=== PATIENT | male | born 1960 | race Caucasian/White ===

== ENCOUNTER 2022-06-26 08:16 | Emergency (ER) | payer OTHER ==
--- OUTSIDE RECORDS SUMMARY | 2022-06-26 08:19 | XMS REPORT | Clinical Summary ---
:1960 Author Organization [facility] MD [facility] Address [address] [place] [address] Care Team Providers Name Role Phone Nicole Mcfarland MD Primary Care Provider Daniela Dan DO Unavailable Allergies Active Allergy Reactions Severity Noted Date Comments Penicillins Itching, Rash Low 07/05/2019 Medications Medication Sig Dispensed Refills Start Date End Date Status lisinopril Take 1 tablet by 1 05/07/2019 A ctive (PRINIVIL,ZESTRIL) mouth daily. 2.5 mg tablet clobetasol (TEMOVATE) Apply topically to 45 g 1 9 Active 0.05% affected area(s) creamIndications: twice daily. to Vesicular eczema of hands, avoid face, hands and/or feet armpit, groin Active Problems Not on file Surgical History Surgery Date Site/Laterality Comments APPENDECTOMY 10/24/1987 - 10/23/1988 COLONOSCOPY 10/24/2018 - 10/23/2019 HERNIA REPAIR 10/24/2012 - 10/23/2013 SHOULDER SURGERY 10/24/2016 - 10/23/2017 Medical History Medical History Date Comments Hypertension 2017 2.5 mg Lisinopril Polyp of colon 2008 Diabetes mellitus 2017 diet controlled, no medication Family History Medical History Relation Name Comments -Other cancer Brother Pradeep Throat -Colon cancer Father Ramon -Thoracic or Lung Father Ramon -Uterine cancer Mother Shanell -Breast cancer Sister Destiny Relation Name Status Comments Brother Pradeep Father Ramon Mother Shanell Sister Destiny Social History Tobacco Use Types Packs/Day Years Used Date Never Smoker 0 0 Smokeless Tobacco: Never Used Alcohol Use Standard Drinks/Week Comments Never 0 (1 standard drink = 0.6 oz pure alcoho l) Sex Assigned at Date Recorded Not on file Obstetrics History Last Filed Vital Signs Not on file Plan of Treatment Health Maintenance Due Date Last Done Comments COVID-19 Vaccination (#1) 1960 Results Not on fileafter 06/26/2021 Insurance Payer Benefit Plan / Subscriber ID Effective Dates Phone Addre ss Type Group [employer] MANAGED AET[employer] O [id number] 2000-Present [id number] [facility] [place] [address] Care Teams Differential Repairer Relationship Specialty Start Date End Date Nicole Mcfarland MD PCP - General Dermatology 05/24/19 [address] [place] [address] Daniela Dan, DO PCP - External Follow Up [facility] 07/05/19 [address] [place] [address] [phone]
--- OUTSIDE RECORDS SUMMARY | 2022-06-26 08:28 | XMS REPORT | Continuity of Care Document ---
:1960 Author Organization [facility] t Address [address] [place] [address] Care Team Providers Name Role Phone JENNIFER BATISTA Primary Care Physician Unavailable Jennifer Batista Attending Clinician Unavailable MARTHA ADLER Attending Clinician Unavailable RUDI PADILLA Attending Clinician Unavailable Rudi Padilla MD Attending Clinician [address] [place] [address] Tip Mr Attending Clinician Unavailable SWATHI MENDES Attending Clinician Unavailable Swathi Mendes Attending Clinician NAV EDWARD Attending Clinician Unavailable REGINE LEMUS Admitting Clinician Unavailable Regine Lemus Admitting Clinician NAV EDWARD Admitting Clinician Unavailable Payers Payer Name Policy Type Policy Number Effective Date Expiration Date S ourronald OPEN ACCESS [id number] 2022 00:00:00 HMO/POS/EPO/PPO - AETNA AETNA HMO POS [id number] 2021 00:00:00 QPOS Problems Condition Condition Condition Status Onset Resolution Last Treating Co mments Source Name Details Category Date Date Treatment Clinician Date STROKE STROKE Diagnosis Active 2020-03-21 Me moria Active 03-21 15:32:00 l 03/21/2020 00:00: Esa cook [address] ACUTE ACUTE Diagnosis Active 2020-03-31 Mem oria RENAL RENAL 03-21 21:54:00 l FAILURE FAILURE 00:00: Roberto Carlos DUE TO DUE TO 00 RHABDOMYOL RHABDOMYOL YSI YSI Active 03/21/2020 [facility] MARY KAY MARY KAY Diagnosis Active 2020-03-24 Memoria BILLING BILLING 03-21 15:01:00 l Active 00:00: [place] 03/21/2020 00 [facility] ACUTE ACUTE Diagnosis Active 2020-03-31 Mem oria KIDNEY KIDNEY 21:54:00 l FAILURE, FAILURE, Esa n UNSPECIFIE UNSPECIFIE D D Active [facility] Allergies, Adverse Reactions, Alerts Allergy Allergy Status Severity Reaction(s) Onset Inactive Treating Comm ents Source Name Type Date Date Clinician Penicill Propensi Active [facility] ins ty to 802 [employer] adverse 00:00: of reaction 00 Medicin s to e drug PENICILL Allergy Active High [facility]aphylaxis [facility] [place] Penicill Propensi Active [facility]iver s ins ty to 912 ity of adverse 00:00: [place] reaction 00 MD dirk cook [facility] Penicill Drug Active Anaphylaxis, [facility] Allergy It[facility] Other (See 00:00: Medica l Comments), 00 Center Rash Amoxicil Adverse Active Info Not Commo n misty Reaction Available Spiri t - [facility] penicill penicill Active [facility] a ins ins l Roberto Carlos Family History Family Member Diagnosis Comments Start Date Stop Date Source Natural father -Thoracic or Lung [facility] Natural father -Colon cancer [facility] Natural mother -Uterine cancer [facility] Natural sister -Breast cancer [facility] Natural brother -Other cancer [facility] Social History Social Habit Start Date Stop Date Quantity Comments Source Exposure to 2022-05-21 2022-05-31 Not sure [facility] Napoleon leon of SARS-CoV-2 00:00:00 09:48:00 Medicine (event) Tobacco use and 2019-07-05 2019-07-05 Smokeless tobacco Un iversity of exposure 00:00:00 00:00:00 non-user [facility] Alcohol intake 2019-07-05 2019-07-05 [facility] 00:00:00 00:00:00 non-drinker [facility] Sex Assigned At [birth year] [facility]00 00:00:00 [facility] Smoking Status Start Date Stop Date Source Never smoked tobacco [facility]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 Clinician (SIG) Name Name gentamicin 2021- No [id number] 160mg [facility] (GARAMYCIN) 06-07 College 40 mg/mL 19:45: 20:16 of injection 00 :00 Medicin 160 mg e gentamicin 2021- No [id number] 160mg 160 mg, [facility] (GARAMYCIN) 06-07 [facility] 40 mg/mL 19:45: 20:16 lar, ONCE, of injection 00 :00 1 dose, On Medi chester 160 mg Mon e 06/07/22 at 1445 ciprofloxac Yes TAKE 1 [facility] or in (CIPRO) 05-27 TABLET BY Art farrar 500 MG 00:00: MOUTH of tablet 00 TWICE A Medicin DAY FOR 5 e DAYS. START 1 DAY PRIOR TO BIOPSY IN [place] losartan Yes TAKE 1 Rolando (COZAAR) 25 05-24 TABLET Colleg e MG tablet 00:00: HOLD IF of 00 FOR BLOOD Medicin PRESSURE e LESS 120 ORALLY TWICE A DAY 90 DAYS Amlodipine Amlodipine Yes Na Batista 1 tablet Common Besylate Besylate 7-16 Spirit 00:00: - [facility] Furosemide No 80 mg, 2 Mem oria 40 MG Oral 6-11 tab, l Tablet 14:00: Route: PO, Crissy nn [Lasix] 00 Drug form: TAB, Q--- , Dosing Weight 135.6, kg, Start date: 04/03/20 9:00:00 CDT, Duration: 30 day, Stop date: 05/01/20 9:00:00 CDT, 0 Furosemide 2020-0 No 80 mg, 2 Mem oria 40 MG Oral 6-11 tab, l Tablet 14:00: Route: PO, Crissy nn [Lasix] 00 Drug form: TAB, , Dosing Weight 135.6, kg, Start date: 04/03/20 9:00:00 CDT, Duration: 30 day, Stop date: 05/01/20 9:00:00 CDT, 0 amLODIPine 2020-0 Yes 5 mg = 1 Mem oria 5 mg oral 6-10 tab, PO, l tablet 16:03: Daily, 0 Roberto Carlos 00 Refill(s) bisacodyl 2020-0 Yes 10 mg = 1 Mem oria 10 mg 6-10 supp, AL, l rectal 16:03: Daily, PRN Crissy nn suppository 00 Constipati on, 0 Refill(s) Docusate 2020-0 Yes 1 tab, PO, Mem oria Sodium 50 6-10 Daily, 0 l MG / 16:03: Refill(s) Roberto Carlos sennosides, 00 HALFWAY 8.6 MG Oral Tablet Furosemide 2020-0 Yes 80 mg = 2 Me moria 40 MG Oral 6-10 tab, PO, l Tablet 16:03: Crissy nn [Lasix] 00 , 0 Refill(s) heparin 2020-0 Yes 7,500 unit Eder beau 6-10 = 1.5 mL, l 16:03: SUB-Q, Roberto Carlso 00 Q8H, 0 Refill(s) Regular 2020-0 Yes 1 unit, Memoria Insulin, 6-10 SUB-Q, l Human 100 16:03: Sliding Crissy nn UNT/ML 00 Scale, PRN Injectable Blood Solution Glucose Results, 0 Refill(s) Nystatin 2020-0 Yes 1 appl, Memori a 100 UNT/MG 6-10 TOP, PRN, l Topical 16:03: PRN For [place] Powder 00 Fungal Prophylaxi s, 0 Refill(s) ocular 2020-0 Yes Each Memoria lubricant 6-10 Affected l 16:03: Eye, QID, Roberto Carlos 00 PRN Dry Eyes, 0 Refill(s) Acetaminoph 2020-0 Yes 100.4 F, M emoria en 325 MG 6-10 0 l Oral Tablet 16:03: Refill(s) H erm Acetaminoph 2020-0 Yes 100.4 F, M emoria en 325 MG 6-10 0 l Oral Tablet 16:03: Refill(s) H erm amLODIPine 2020-0 Yes 5 mg = 1 Mem oria 5 mg oral 6-10 tab, PO, l tablet 16:03: Daily, 0 Roberto Carlos 00 Refill(s) bisacodyl 2020-0 Yes 10 mg = 1 Mem oria 10 mg 6-10 supp, AL, l rectal 16:03: Daily, PRN Crissy nn suppository 00 Constipati on, 0 Refill(s) Docusate 2020-0 Yes 1 tab, PO, Mem oria Sodium 50 6-10 Daily, 0 l MG / 16:03: Refill(s) [place] sennosides, 00 HALFWAY 8.6 MG Oral Tablet Furosemide 2019-0 Yes 80 mg = 2 Me moria 40 MG Oral 6-10 tab, PO, l Tablet 16:03: Q- Crissy nn [Lasix] 00 , 0 Refill(s) heparin 2019-0 Yes 7,500 unit Eder beau 6-10 = 1.5 mL, l 16:03: SUB-Q, Roberto Carlos 00 Q8H, 0 Refill(s) Regular 2020-0 Yes 1 unit, Memoria Insulin, 6-10 SUB-Q, l Human 100 16:03: Sliding Crissy nn UNT/ML 00 Scale, PRN Injectable Blood Solution Glucose Results, 0 Refill(s) Nystatin 2020-0 Yes 1 appl, Memori a 100 UNT/MG 6-10 TOP, PRN, l Topical 16:03: PRN For [place] Powder 00 Fungal Prophylaxi s, 0 Refill(s) ocular 2020-0 Yes Each Memoria lubricant 6-10 Affected l 16:03: Eye, QID, [place] 00 PRN Dry Eyes, 0 Refill(s) Fentanyl 2020-0 No 25 Memoria 6-09 microgram, l 16:38: Route: IV, [place] 00 ONCE, Dosing Weight 135.6, kg, Start date: 04/01/20 11:38:00 CDT, Stop date: 04/01/20 11:38:00 CDT Fentanyl 2020-0 No 25 Memoria 6-09 microgram, l 16:38: Route: IV, Roberto Carlos 00 ONCE, Dosing Weight 135.6, kg, Start date: 04/01/20 11:38:00 CDT, Stop date: 04/01/20 11:38:00 CDT Epinephrine 2020-0 No 20 mL, Eder beau 0.01 MG/ML 04-01 Route: l / Lidocaine 16:32: INTRADERM, Roberto Carlos Hydrochlori 00 Dosing de 10 MG/ML Weight Injectable 135.6, kg, Solution ONCE, Start date: 04/01/20 11:32:00 CDT, Stop date: 04/01/20 11:32:00 CDT Epinephrine 2020-0 No 20 mL, Eder beau 0.01 MG/ML 04-01 Route: l / Lidocaine 16:32: INTRADERM, [place] Hydrochlori 00 Dosing de 10 MG/ML Weight Injectable 135.6, kg, Solution ONCE, Start date: 04/01/20 11:32:00 CDT, Stop date: 04/01/20 11:32:00 CDT Fentanyl 2020-0 No 75 Memoria 6-09 microgram, l 16:30: Route: IV, [place] 00 ONCE, Dosing Weight 135.6, kg, Start date: 04/01/20 11:30:00 CDT, Stop date: 04/01/20 11:30:00 CDT Fentanyl 2020-0 No 75 Memoria 6-09 microgram, l 16:30: Route: IV, [place] 00 ONCE, Dosing Weight 135.6, kg, Start date: 04/01/20 11:30:00 CDT, Stop date: 04/01/20 11:30:00 CDT Artificial 2020-0 No Notes: Memor ia Tears 6-08 (Same as: l 04:48: Thera-tear [place] 00 s) Artificial 2020-0 No Notes: Memor ia Tears 6-08 (Same as: l 04:48: Thera-tear [place] 00 s) Docusate 2020-0 No Notes: Memoria Sodium 50 6-04 (Same as l MG / 14:00: Senokot-S) Roberto Carlos albertsnosides, 00 Equiv. to HALFWAY 8.6 MG Yulissa-Colac Oral Tablet e. Docusate 2019-0 No Notes: Memoria Sodium 50 6-04 (Same as l MG / 14:00: Senokot-S) Roberto Carlos sennosides, 00 Equiv. to HALFWAY 8.6 MG Yulissa-Colac Oral Tablet e. Dulcolax 0 No Notes: Memoria Laxative 6-04 (Same As: l 06:04: Dulcolax, [place] 00 Bisco-Lax) Maalox 0 No Notes: Memoria Advanced 6-04 (aluminum l Regular 06:04: hydroxide- Herm leticia Strength 00 magnesium SUSP hyd-simeth icone 200-200-20 mg/5ml 30 ml ud CARLOS) Tylenol 0 No Notes: Do Memor ia 6- not exceed l 06:04: 4 gm/day. [place] 00 (Same as: Tylenol) Zofran 0 No Notes: Memoria 6- (Same as: l 06:04: Zofran) [place] 00 MEDICATION WASTE Product Size: 4 mg Product Wasted: ___ mg Dulcolax 2019-0 No Notes: Memoria Laxative 6- (Same As: l 06:04: Dulcolax, [place] 00 Bisco-Lax) Maalox 0 No Notes: Memoria Advanced 6-04 (aluminum l Regular 06:04: hydroxide- Herm leticia Strength 00 magnesium SUSP hyd-simeth icone 200-200-20 mg/5ml 30 ml ud CARLOS) Tylenol 0 No Notes: Do Memor ia 6- not exceed l 06:04: 4 gm/day. Roberto Carlos 00 (Same as: Tylenol) Zofran 0 No Notes: Memoria 6- (Same as: l 06:04: Zofran) Roberto Carlos 00 MEDICATION WASTE Product Size: 4 mg Product Wasted: ___ mg Furosemide 0 No Notes: Memor ia 6-03 (Same as: l 19:00: Lasix) Roberto Carlos Furosemide 2019-0 No Notes: Memor ia 6-03 (Same as: l 19:00: Lasix) [place] Lasix 2019-0 No Notes: Memoria 6-02 (Same as: l 17:02: Lasix) [place] 00 MEDICATION WASTE Product Size: 40 mg Product Wasted: _0__ mg Lasix 2020-0 No Notes: Memoria 6- (Same as: l 17:02: Lasix) MEDICATION WASTE Product Size: 40 mg Product Wasted: _0__ mg Azithromyci 2020-0 No Notes: Eder beau n 6-02 Take 1 l 16:10: hour [place] 00 before or 2 hours after meals. (Same As: Zithromax) Azithromyci 2020-0 No Notes: Eder beau n 6-02 Take 1 l 16:10: hour [place] 00 before or 2 hours after meals. (Same As: Zithromax) Calcium 2019-0 No Notes: Memoria Gluconate 6- WASTE: F/P l 12:00: - Sink; E Roberto Carlos - [facility] Tr[facility] Calcium 2020-0 No Notes: Memoria Gluconate 6- WASTE: F/P l 12:00: - Sink; E Roberto Carlos - [facility] Tr[facility] Calcium 2020-0 No Notes: Memoria Gluconate 6- WASTE: F/P l 21:55: - Sink; E Roberto Carlos - [facility] Tr[facility] Calcium 2020-0 No Notes: Memoria Gluconate 6-01 WASTE: F/P l 21:55: - Sink; E Roberto Carlos 00 - [facility] Trash Bin Lasix 2020-0 No Notes: Memori a 6-01 MEDICATION l 20:44: WASTE Product Size: 40 mg Product Wasted: ___ mg Lasix 2020-0 No Notes: Memori a 6-01 MEDICATION l 20:44: WASTE Product Size: 40 mg Product Wasted: ___ mg Amlodipine 2020-0 No Notes: Memor ia 6- (Same as: l 18:21: Norvasc) Amlodipine 2020-0 No Notes: Memor ia 6- (Same as: l 18:21: Norvasc) Ceftriaxone 2020-0 No Notes: Eder beau 6- (Same As: l 14:00: Rocephin). Use with 100 mL NS and infuse over 30 min MEDICATION WASTE Product Size: 1000 mg Product Wasted: ___ mg Ceftriaxone 2019-0 No Notes: Eder beau 03-24 (Same As: l 14:00: Rocephin). Use with 100 mL NS and infuse over 30 min MEDICATION WASTE Product Size: 1000 mg Product Wasted: ___ mg Calcium 2019- No Notes: Memoria Gluconate 03-24 WASTE: F/P l 13:38: - Sink; E - [facility] Trash [facility] Calcium 2019-0 No Notes: Memoria Gluconate 03-24 WASTE: F/P l 13:38: - Sink; E - [facility] Trash Bin Ativan No Notes: Memoria 03-24 (Same as: l 01:36: Ativan) Ativan No Notes: Memoria 03-24 (Same as: l 01:36: Ativan) Isolyte S No Notes: Memori a PH 7.4 03-23 (Same as: l 1,000 mL 19:53: Isolyte S Herm leticia 00 PH7.4, Normosol-R PH 7.4, Plasma-Lyt e A ) Isolyte S 2019-0 No Notes: Memori a PH 7.4 03-23 (Same as: l 1,000 mL 19:53: Isolyte S Herm leticia 00 PH7.4, Normosol-R PH 7.4, Plasma-Lyt e A ) Vancomycin No 2000 mg: Me moria 5-31 infuse l 17:00: over 2.5 [place] 00 hours For adult patients only: Round to nearest 250 mg per Medical Staff approval MEDICATION WASTE Product Size: 1000 mg Product Wasted: ___ mg Vancomycin 2019-0 No 2000 mg: Me moria 5-31 infuse l 17:00: over 2.5 [place] 00 hours For adult patients only: Round to nearest 250 mg per Medical Staff approval MEDICATION WASTE Product Size: 1000 mg Product Wasted: ___ mg cefepime No Notes: Memoria 03-23 (Same as: l 16:00: Maxipime) MEDICATION WASTE Product Size: 2000 mg Product Wasted: ___ mg cefepime 2020-0 No Notes: Memoria 5-31 (Same as: l 16:00: Maxipime) [place] 00 MEDICATION WASTE Product Size: 2000 mg Product Wasted: ___ mg Calcium 2020-0 No 1,000 mL, Memor ia Chloride 5-31 1,000 l 0.0014 15:59: ml/hr, Roberto Carlos MEQ/ML / 00 Infuse Potassium Over: 1 Chloride hr, Route: 0.004 IV, 1,000, MEQ/ML / Drug form: Sodium INJ, ONCE, Chloride Priority: 0.103 STAT, MEQ/ML / Dosing Sodium Weight Lactate 128.3 kg, 0.028 Start MEQ/ML date: Injectable 03/23/20 Solution 10:59:00 CDT, Stop date: 03/23/20 10:59:00 CDT, 0 Calcium 2020-0 No 1,000 mL, Memor ia Chloride 5-31 1,000 l 0.0014 15:59: ml/hr, Roberto Carlos MEQ/ML / 00 Infuse Potassium Over: 1 Chloride hr, Route: 0.004 IV, 1,000, MEQ/ML / Drug form: Sodium INJ, ONCE, Chloride Priority: 0.103 STAT, MEQ/ML / Dosing Sodium Weight Lactate 128.3 kg, 0.028 Start MEQ/ML date: Injectable 03/23/20 Solution 10:59:00 CDT, Stop date: 03/23/20 10:59:00 CDT, 0 Calcium 2020-0 No 1,000 mL, Memor ia Chloride - 1000 l 0.0014 01:00: ml/hr, [place] MEQ/ML / 00 Infuse Potassium Over: 1 Chloride hr, Route: 0.004 IV, 1,000, MEQ/ML / Drug form: Sodium INJ, ONCE, Chloride Dosing 0.103 Weight MEQ/ML / 128.3 kg, Sodium Start Lactate date: 0.028 03/22/20 MEQ/ML 20:00:00 Injectable CDT, Stop Solution date: 03/22/20 20:00:00 CDT, 0 Ampicillin 2020-0 No Notes: Memor ia 5-31 (Same as: l 01:00: Principen) Roberto Carlos MEDICATION WASTE Product Size: 2000 mg Product Wasted: ___ mg Calcium 2020-0 No 1,000 mL, Memor ia Chloride 5-31 1000 l 0.0014 01:00: ml/hr, MEQ/ML / 00 Infuse Potassium Over: 1 Chloride hr, Route: 0.004 IV, 1,000, MEQ/ML / Drug form: Sodium INJ, ONCE, Chloride Dosing 0.103 Weight MEQ/ML / 128.3 kg, Sodium Start Lactate date: 0.028 03/22/20 MEQ/ML 20:00:00 Injectable CDT, Stop Solution date: 03/22/20 20:00:00 CDT, 0 Ampicillin No Notes: Memor ia 5- (Same as: l 01:00: Principen) MEDICATION WASTE Product Size: 2000 mg Product Wasted: ___ mg Isolyte S No Notes: Memori a PH 7.4 5-30 (Same as: l 1,000 mL 23:32: Isolyte S Herm leticia 00 PH7.4, Normosol-R PH 7.4, Plasma-Lyt e A ) Isolyte S No Notes: Memori a PH 7.4 5-30 (Same as: l 1,000 mL 23:32: Isolyte S Herm leticia 00 PH7.4, Normosol-R PH 7.4, Plasma-Lyt e A ) losartan 25 No 25 mg = 1 M emoria mg oral 5-30 tab, PO, l tablet 22:01: Daily, 0 Refill(s) losartan 25 0 No 25 mg = 1 M emoria mg oral 5-30 tab, PO, l tablet 22:01: Daily, 0 Refill(s) Calcium 2019-0 No Notes: Memoria Gluconate -30 WASTE: F/P l 19:09: - Sink; E - [facility] Trash Bin Calcium 2019-0 No Notes: Memoria Gluconate 5-30 WASTE: F/P l 19:09: - Sink; E - [facility] Trash Bin Potassium 2019- No 20 mEq, Memor ia Chloride -30 Route: l 18:54: IVPB, PRN, Dosing Weight 128.3, kg, PRN Abnormal Lab Result, Via central line, Start date: 03/22/20 13:54:00 CDT, Duration: 30 day, Stop date: 04/21/20 13:53:00 CDT, FOR ICU USE ONLY sodium 2020-0 No 15 mmol, Memoria phosphate 5-30 Route: l 18:54: IVPB, PRN, Roberto Carlos 00 Dosing Weight 128.3, kg, PRN Abnormal Lab Result, Start date: 03/22/20 13:54:00 CDT, Duration: 30 day, Stop date: 04/21/20 13:53:00 CDT, FOR ICU USE ONLY potassium 2020-0 No 15 mmol, Eder beau phosphate 5-30 Route: l 18:54: IVPB, PRN, [place] 00 Dosing Weight 128.3, kg, PRN Abnormal Lab Result, Start date: 03/22/20 13:54:00 CDT, Duration: 30 day, Stop date: 04/21/20 13:53:00 CDT, FOR ICU USE ONLY potassium 2020-0 No 2 pkt, Memori a phosphate-s 530 Route: PO, l odium 18:54: Dosing Roberto Carlos phosphate 00 Weight 250 mg-280 128.3, kg, mg-160 mg PRN, PRN oral powder Abnormal for Lab reconstitut Result, ion FOR ICU USE ONLY, Start date: 03/22/20 13:54:00 CDT, Duration: 30 day, Stop date: 04/21/20 13:53:00 CDT Magnesium 2020-0 No 2 gm, Memoria Sulfate 5-30 Route: l 18:54: IVPB, PRN, Roberto Carlos 00 Dosing Weight 128.3, kg, PRN Abnormal Lab Result, Start date: 03/22/20 13:54:00 CDT, Duration: 30 day, Stop date: 04/21/20 13:53:00 CDT, FOR ICU USE ONLY Magnesium 2020-0 No 800 mg, Memor ia Oxide 5-30 Route: PO, l 18:54: PRN, Roberto Carlos 00 Dosing Weight 128.3, kg, PRN Abnormal Lab Result, FOR ICU USE ONLY, Start date: 03/22/20 13:54:00 CDT, Duration: 30 day, Stop date: 04/21/20 13:53:00 CDT Calcium 2020-0 No 1 gm, Memoria Gluconate 5-30 Route: l 18:54: IVPB, PRN, Roberto Carlos 00 Dosing Weight 128.3, kg, PRN Abnormal Lab Result, Start date: 03/22/20 13:54:00 CDT, Duration: 30 day, Stop date: 04/21/20 13:53:00 CDT, FOR ICU USE ONLY Calcium 2020-0 No 500 mg, Memoria Carbonate 5-30 Route: PO, l 500 MG 18:54: PRN, [place] Chewable 00 Dosing Tablet Weight 128.3, kg, PRN Abnormal Lab Result, FOR ICU USE ONLY, Start date: 03/22/20 13:54:00 CDT, Duration: 30 day, Stop date: 04/21/20 13:53:00 CDT Potassium 2020-0 No 20 mEq, Memor ia Chloride 03-22 Route: l 18:54: IVPB, PRN, Roberto Carlos 00 Dosing Weight 128.3, kg, PRN Abnormal Lab Result, Via central line, Start date: 03/22/20 13:54:00 CDT, Duration: 30 day, Stop date: 04/21/20 13:53:00 CDT, FOR ICU USE ONLY sodium 2020-0 No 15 mmol, Memoria phosphate -30 Route: l 18:54: IVPB, PRN, Roberto Carlos 00 Dosing Weight 128.3, kg, PRN Abnormal Lab Result, Start date: 03/22/20 13:54:00 CDT, Duration: 30 day, Stop date: 04/21/20 13:53:00 CDT, FOR ICU USE ONLY potassium 2020-0 No 15 mmol, Eder beau phosphate 30 Route: l 18:54: IVPB, PRN, [place] 00 Dosing Weight 128.3, kg, PRN Abnormal Lab Result, Start date: 03/22/20 13:54:00 CDT, Duration: 30 day, Stop date: 04/21/20 13:53:00 CDT, FOR ICU USE ONLY potassium 2020-0 No 2 pkt, Memori a phosphate-s 30 Route: PO, l odium 18:54: Dosing Roberto Carlos phosphate 00 Weight 250 mg-280 128.3, kg, mg-160 mg PRN, PRN oral powder Abnormal for Lab reconstitut Result, ion FOR ICU USE ONLY, Start date: 03/22/20 13:54:00 CDT, Duration: 30 day, Stop date: 04/21/20 13:53:00 CDT Magnesium 2020-0 No 2 gm, Memoria Sulfate 5-30 Route: l 18:54: IVPB, PRN, [place] 00 Dosing Weight 128.3, kg, PRN Abnormal Lab Result, Start date: 03/22/20 13:54:00 CDT, Duration: 30 day, Stop date: 04/21/20 13:53:00 CDT, FOR ICU USE ONLY Magnesium 2020-0 No 800 mg, Memor ia Oxide 5-30 Route: PO, l 18:54: PRN, [place] 00 Dosing Weight 128.3, kg, PRN Abnormal Lab Result, FOR ICU USE ONLY, Start date: 03/22/20 13:54:00 CDT, Duration: 30 day, Stop date: 04/21/20 13:53:00 CDT Calcium 2020-0 No 1 gm, Memoria Gluconate 5-30 Route: l 18:54: IVPB, PRN, [place] 00 Dosing Weight 128.3, kg, PRN Abnormal Lab Result, Start date: 03/22/20 13:54:00 CDT, Duration: 30 day, Stop date: 04/21/20 13:53:00 CDT, FOR ICU USE ONLY Calcium 2020-0 No 500 mg, Memoria Carbonate 5-30 Route: PO, l 500 MG 18:54: PRN, Roberto Carlos Chewable 00 Dosing Tablet Weight 128.3, kg, PRN Abnormal Lab Result, FOR ICU USE ONLY, Start date: 03/22/20 13:54:00 CDT, Duration: 30 day, Stop date: 04/21/20 13:53:00 CDT Vancomycin 2020-0 No 2000 mg: Me moria 5-30 infuse l 16:00: over 2.5 [place] 00 hours For adult patients only: Round to nearest 250 mg per Medical Staff approval MEDICATION WASTE Product Size: 1000 mg Product Wasted: ___ mg Vancomycin 2020-0 No 2000 mg: Me moria 5-30 infuse l 16:00: over 2.5 [place] 00 hours For adult patients only: Round to nearest 250 mg per Medical Staff approval MEDICATION WASTE Product Size: 1000 mg Product Wasted: ___ mg Saline 2020-0 No Notes: Memoria Flush 0.9% 5-30 (Same as: l 14:00: BD Orberto Carlos 00 Posiflush) Saline 2020-0 No Notes: Memoria Flush 0.9% 5-30 (Same as: l 14:00: BD [place] 00 Posiflush) heparin 2020-0 No 5,000 Memoria 5-30 unit, l 13:00: Route: [place] 00 SUB-Q, Q8H, Dosing Weight 128.3, kg, Start date: 03/22/20 8:00:00 CDT, Duration: 30 day, Stop date: 04/21/20 0:00:00 CDT heparin 2020-0 No 5,000 Memoria 5-30 unit, l 13:00: Route: [place] 00 SUB-Q, Q8H, Dosing Weight 128.3, kg, Start date: 03/22/20 8:00:00 CDT, Duration: 30 day, Stop date: 04/21/20 0:00:00 CDT Ampicillin 2019-0 No Notes: Memor ia 5-30 (Same as: l 11:00: Principen) Roberto Carlos 00 MEDICATION WASTE Product Size: 2000 mg Product Wasted: ___ mg Ampicillin 2020-0 No Notes: Memor ia 5-30 (Same as: l 11:00: Principen) Roberto Carlos 00 MEDICATION WASTE Product Size: 2000 mg Product Wasted: ___ mg Calcium 2020-0 No Notes: Memoria Gluconate 5-30 WASTE: F/P l 07:11: - Sink; E Roberto Carlos - [facility] Trash [facility] Calcium 2020-0 No Notes: Memoria Gluconate 5-30 WASTE: F/P l 07:11: - Sink; E [place] 00 - Municipal Trash Bin Isolyte S 2020-0 No Notes: Memori a PH 7.4 5-30 (Same as: l 1,000 mL 07:07: Isolyte S Herm leticia 00 PH7.4, Normosol-R PH 7.4, Plasma-Lyt e A ) Isolyte S 2020-0 No Notes: Memori a PH 7.4 5-30 (Same as: l 1,000 mL 07:07: Isolyte S Herm leticia 00 PH7.4, Normosol-R PH 7.4, Plasma-Lyt e A ) Acyclovir 2019-0 No Notes: Memori a 5-30 Same as: l 07:00: Zovirax For adult patients only: Round to nearest 50 mg per Medical Staff approval MEDICATION WASTE Product Size: 500 mg Product Wasted: ___ mg Acyclovir 2019-0 No Notes: Memori a 30 Same as: l 07:00: Zovirax For adult patients only: Round to nearest 50 mg per Medical Staff approval MEDICATION WASTE Product Size: 500 mg Product Wasted: ___ mg Dextrose 2019-0 No 12.5 gm, Memor ia 50% Syringe 5-30 25 mL, l ([id number]) 05:31: Route: IVP, Drug Form: INJ, Dosing Weight 128.3, kg, PRN, PRN Blood Glucose Results, Start date: 03/22/20 0:31:00 CDT, Duration: 30 day, Stop date: 04/21/20 0:30:00 CDT, 0 Glucagon 2019-0 No 1 mg, Memoria 30 Route: IM, l 05:31: Drug form: PDR/INJ, PRN, Dosing Weight 128.3, kg, PRN Blood Glucose Results, Start date: 03/22/20 0:31:00 CDT, Duration: 30 day, Stop date: 04/21/20 0:30:00 CDT, 0 Insulin 2020-0 No Notes: Memoria regular 30 (Same as: l 05:31: Humulin R) Roll in palms of hands gently; Do not shake vigorously . WASTE: F/P - Black; E - Municipal Trash Bin Stable for 31 days at room temperatur e Expires in days from ____Date lisinopril 2019-0 No 20 mg = 1 Me moria 20 mg oral 5-30 tab, PO, l tablet 05:31: Daily, 0 Refill(s) Dextrose 2020-0 No 12.5 gm, Memor ia 50% Syringe 5-30 25 mL, l ([id number]) 05:31: Route: IVP, Drug Form: INJ, Dosing Weight 128.3, kg, PRN, PRN Blood Glucose Results, Start date: 03/22/20 0:31:00 CDT, Duration: 30 day, Stop date: 04/21/20 0:30:00 CDT, 0 Glucagon No 1 mg, Memoria 30 Route: IM, l 05:31: Drug form: PDR/INJ, PRN, Dosing Weight 128.3, kg, PRN Blood Glucose Results, Start date: 03/22/20 0:31:00 CDT, Duration: 30 day, Stop date: 04/21/20 0:30:00 CDT, 0 Insulin No Notes: Memoria regular 5-30 (Same as: l 05:31: Humulin R) Roll in palms of hands gently; Do not shake vigorously . WASTE: F/P - Black; E - Municipal Trash Bin Stable for 31 days at room temperatur e Expires in days from ____Date lisinopril No 20 mg = 1 Me moria 20 mg oral 5-30 tab, PO, l tablet 05:31: Daily, 0 Refill(s) Isolyte S No Notes: Memori a PH 7.4 5-30 (Same as: l 1,000 mL 05:08: Isolyte S Herm leticia 00 PH7.4, Normosol-R PH 7.4, Plasma-Lyt e A ) Isolyte S No Notes: Memori a PH 7.4 5-30 (Same as: l 1,000 mL 05:08: Isolyte S Herm leticia 00 PH7.4, Normosol-R PH 7.4, Plasma-Lyt e A ) Nystatin No Notes: Memoria 100 UNT/MG 5-30 (Same l Topical 04:45: as:Mycosta Herm leticia Powder 00 tin, Nilstat) For external use only. Saline No Notes: Memoria Flush 0.9% 5-30 Same as: l 04:45: BD Roberto Carlos Posiflush Sterile Nystatin No Notes: Memoria 100 UNT/MG 5-30 (Same l Topical 04:45: as:Mycosta Herm leticia Powder 00 tin, Nilstat) For external use only. 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/ Epidural Abcess Ampicillin 2020-0 No Notes: Memor ia 5-30 (Same as: l 04:00: Principdevan) Roberto Carlos 00 MEDICATION WASTE Product Size: 2000 mg Product Wasted: ___ mg cefepime 2020-0 No Notes: Memoria 5-30 (Same as: l 04:00: Maxipime) Roberto Carlos 00 MEDICATION WASTE Product Size: 2000 mg Product Wasted: ___ mg Vancomycin 2020-0 No 1,000 mg, Me moria 5-30 Route: l 04:00: IVPB, Drug Roberto Carlos 00 form: INJ, [id number], Dosing Weight 118.182, kg, Start date: 03/21/20 23:00:00 CDT, Duration: 7 day, Stop date: 03/28/20 11:00:00 CDT, ABX Indication : EDGE 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 Infection/ Epidural Abcess Ampicillin 2020-0 No Notes: Memor ia 5-30 (Same as: l 04:00: Principen) Roberto Carlos 00 MEDICATION WASTE Product Size: 2000 mg Product Wasted: ___ mg Ampicillin 2020-0 No 2 gm, Memori a 5-30 Route: l 01:45: IVPB, Roberto Carlos 00 ONCE, Dosing Weight 118.182, kg, Priority: STAT, Start date: 03/21/20 20:45:00 CDT, Stop date: 03/21/20 20:45:00 CDT Ampicillin 2020-0 No 2 gm, Memori a 5-30 Route: l 01:45: IVPB, Bradford 00 ONCE, Dosing Weight 118.182, kg, Priority: STAT, Start date: 03/21/20 20:45:00 CDT, Stop date: 03/21/20 20:45:00 CDT Ofirmev 2020-0 No or = 50 Memori a 5-30 kg, Start l 00:14: date: Bradford 03/21/20 19:14:00 CDT Ofirmev 2020-0 No or = 50 Memori a 5-30 kg, Start l 00:14: date: Bradford 03/21/20 19:14:00 CDT Isolyte S 2020-0 No 1,000 mL, Mem oria PH-7.4 5- Route: IV, l (Bolus) IV 21:35: ONCE, Esa n Priority: STAT, Dosing Weight 118.182 kg, Start date: 03/21/20 16:35:00 CDT, Stop date: 03/21/20 16:35:00 CDT Isolyte S 2020-0 No 1,000 mL, Mem oria PH-7.4 - Route: IV, l (Bolus) IV 21:35: ONCE, Esa n Priority: STAT, Dosing Weight 118.182 kg, Start date: 03/21/20 16:35:00 CDT, Stop date: 03/21/20 16:35:00 CDT Aspirin 300 2019-0 No Notes: Eder beau MG Rectal 5-29 Refrigerat l Suppository 18:12: e. Esa n Aspirin 300 2019-0 No Notes: Eder beau MG Rectal 5-29 Refrigerat l Suppository 18:12: e. Esa n Isolyte S 0 No Notes: Memori a PH-7.4 5-29 (Same as: l (Bolus) IV 17:23: Isolyte S PH7.4, Normosol-R PH 7.4, Plasma-Lyt e A ) Isolyte S 2019-0 No Notes: Memori a PH 7.4 5-29 (Same as: l 1,000 mL 17:23: Isolyte S Herm leticia 00 PH7.4, Normosol-R PH 7.4, Plasma-Lyt e A ) Isolyte S No Notes: Memori a PH-7.4 5-29 (Same as: l (Bolus) IV 17:23: Isolyte S He rmann 00 PH7.4, Normosol-R PH 7.4, Plasma-Lyt e A ) Isolyte S No Notes: Memori a PH 7.4 5-29 (Same as: l 1,000 mL 17:23: Isolyte S Herm leticia 00 PH7.4, Normosol-R PH 7.4, Plasma-Lyt e A ) Isolyte S No Notes: Memori a PH-7.4 - (Same as: l (Bolus) IV 16:06: Isolyte S He rmann 00 PH7.4, Normosol-R PH 7.4, Plasma-Lyt e A ) Isolyte S No Notes: Memori a PH-7.4 03-21 (Same as: l (Bolus) IV 16:06: Isolyte S He rmann 00 PH7.4, Normosol-R PH 7.4, Plasma-Lyt e A ) Iohexol 2020-0 No 150 mL, Memoria 03-21 Route: l 15:47: IVP, Drug Form: SOLN, Dosing Weight 118.182, kg, ONCALL, STAT, Start date: 03/21/20 10:47:00 CDT, Duration: 1 doses or times, Dose = 2.2ml/kg, Max dose = 150ml -- "To be infused by Radiology Staff ONLY" Iohexol 0 No 150 mL, Memoria 03-21 Route: l 15:47: IVP, Drug Form: SOLN, Dosing Weight 118.182, kg, ONCALL, STAT, Start date: 03/21/20 10:47:00 CDT, Duration: 1 doses or times, Dose = 2.2ml/kg, Max dose = 150ml -- "To be infused by Radiology Staff ONLY" Ofirmev No Notes: Memoria 03-21 Infuse l 15:22: over 15 Roberto Carlos 00 minutes Do not exceed 4gm/day of acetaminop hen MEDICATION WASTE Product Size: 1000 mg Product Wasted: ___ mg Ofirmev 2020-0 No Notes: Memoria 5-29 Infuse l 15:22: over 15 Bradford 00 minutes Do not exceed 4gm/day of acetaminop hen MEDICATION WASTE Product Size: 1000 mg Product Wasted: ___ mg Iohexol 2020-0 No Notes: Memoria 5-29 (same l 15:19: as:Omnipaq Bradford ue 350). WASTE: F/P - Black; E - Municipal Trash Bin Iohexol 2020-0 No Notes: Memoria - (same l 15:19: as:Omnipaq [place] ue 350). WASTE: F/P - Black; E - Municipal Trash Bin Vancomycin 2020-0 No 2000 mg: Me moria 5-29 infuse l 15:10: over 2.5 Bradford 00 hours Vancomycin 2020-0 No 2000 mg: Me moria 5-29 infuse l 15:10: over 2.5 Bradford 00 hours cefepime 2020-0 No Notes: Memoria -29 (Same as: l 15:09: Maxipime) Roberto Carlos 00 MEDICATION WASTE Product Size: 2000 mg Product Wasted: ___ mg cefepime 2020-0 No Notes: Memoria - (Same as: l 15:09: Maxipime) Bradford 00 MEDICATION WASTE Product Size: 2000 mg Product Wasted: ___ mg Iohexol 2020-0 No Notes: Memoria 5-29 (same l 15:08: as:Omnipaq Roberto Carlos ue 350). WASTE: F/P - Black; E - Municipal Trash Bin Iohexol 2020-0 No Notes: Memoria 5-29 (same l 15:08: as:Omnipaq Roberto Carlos ue 350). WASTE: F/P - Black; E - Municipal Trash Bin Saline 2020-0 No Notes: Memoria Flush 0.9% 5-29 Same as: l 15:02: BD Roberto Carlos 00 Posiflush Sterile Saline 2020-0 No Notes: Memoria Flush 0.9% 5-29 Same as: l 15:02: BD Bradford Posiflush Sterile Saline No Notes: Memoria Flush 0.9% 5-29 (Same as: l 15:00: BD Roberto Carlos Posiflush) Saline No Notes: Memoria Flush 0.9% 5-29 (Same as: l 15:00: BD Roberto Carlos Posiflush) Losartan Losartan Yes Na Batista 1 tablet Common Potassium Potassium 17 Spiri t 00:00: - [facility] 00 [facility] clobetasol Yes Vesicular Apply U nivers (TEMOVATE) 07-05 eczema of topically ity of 0.05% cream 00:00: hands to [place] 00 and/or feet affected MD archuleta(s) Omar twice n daily. to Cancer hands, Center avoid face, armpit, groin lisinopril Yes 1{tbl} Take 1 Uni vers (PRINIVIL,Z 7-15 tablet by ity of ESTRIL) 2.5 00:00: mouth [place] mg tablet 00 daily. MD [facility] Triamcinolo Triamlisa Yes Na Batista 1 Common ne ne applicatio [facility] Acetonide Acetonide n to - [facility] affected [facility] Immunizations Ordered Immunization Filled Immunization Date Status Commen ts Source Name Name Kandice Woodson 2019-09-28 Completed [facility] 00:00[facility]00 [facility] Afluria single dose Afluria single dose 2019-07-10 Completed [facility] 00:00:00 [facility] TDAP > 7 TDAP > 7 2018-03-29 Completed [facility] Years-Adacel Years-Adacel 00:00:00 [facility] Pneumovax Pneumovax 2018-03-29 Completed [facility] 00:00:00 [facility] Vital Signs Vital Name Observation Time Observation Value Comments Source Systolic blood 2022-06-07 20:03:00 160 mm[Hg] [facility] pressure Medicine Diastolic blood 2022-06-07 20:03:00 98 mm[Hg] [facility] pressure Medicine Heart rate 2022-06-07 20:03:00 96 /min [facility] Body height 2022-06-07 20:03:00 188 cm [facility] Body weight 2022-06-07 20:03:00 131.543 kg [facility] BMI 2022-06-07 20:03:00 37.23 kg/m2 [facility] Temperature Oral (F) 2020-04-02 16:45:00 98.0 F [facility] Heart Rate 2020-04-02 16:45:00 [facility] Respitory Rate 2020-04-02 16:45:00 Memori al [place] Systolic (mm Hg) 2020-04-02 16:45:00 Eder rial [place] Diastolic (mm Hg) 2020-04-02 16:45:00 Mem orial Roberto Carlos Temperature Oral (F) 2020-04-02 12:45:00 97.1 F [facility] Temperature Oral (F) 2020-04-02 12:38:00 97.9 F [facility] Respitory Rate 2020-04-02 12:38:00 Memori al [place] Systolic (mm Hg) 2020-04-02 12:38:00 Eder rial [place] Diastolic (mm Hg) 2020-04-02 12:38:00 Mem orial Roberto Carlos Respitory Rate 2020-04-02 09:59:00 Memori al Roberto Carlos Systolic (mm Hg) 2020-04-02 09:59:00 Eder rial [place] Diastolic (mm Hg) 2020-04-02 09:59:00 Mem orial [place] Heart Rate 2020-04-01 13:28:00 [facility] Heart Rate 2020-04-01 09:29:00 [facility] Height 2020-03-26 17:29:00 193.04 cm [facility] Weight 2020-03-26 17:29:00 [facility] BMI Calculated 2020-03-26 17:29:00 Memori al Roberto Carlos Height 2020-03-22 04:52:00 187.96 cm [facility] Weight 2020-03-22 04:52:00 [facility] BMI Calculated 2020-03-22 04:52:00 Memori al [place] Height 2020-03-21 15:31:00 190.5 cm [facility] BMI Calculated 2020-03-21 15:31:00 Memori al Roberto Carlos Weight 2020-03-21 15:31:00 [facility] Procedures Procedure Date / Time Performed Performing Clinician Sourc e US TRANSRECTAL 2022-06-07 17:33:29 [facility] jae of W/NANETTE BIOPSY Medicine MR PELVIS WITH & 2022-03-24 18:06:00 Rudi Padilla [facility] Center Plan of Care Planned Activity Planned Date Details Comments Source Future Scheduled 2028-03-29 DTAP/TDAP/TD VACCINES ([address] [facility] Test 00:00:00 - Td or Tdap) [code = Medica l Center DTAP/TDAP/TD VACCINES (2 - Td or Tdap)] Future Scheduled 2022-06-24 INFLUENZA VACCINE (#1) [facility] 00:00[facility]00 [code = INFLUENZA Medical Ce nter VACCINE (#1)] Future Scheduled 2022-06-08 Screening for malignant [facility] 02:13:50 neoplasm of colon Medicine (procedure) [code = 295044363] Future Scheduled 2022-06-08 BMI FOLLOW UP PLAN [code [facility] Test 02:13:50 = BMI FOLLOW UP PLAN] Medici ne Future Scheduled 2022-06-08 Hepatitis C screening [facility] Test 02:13:50 (procedure) [code = Medicine 588526608] Future Scheduled 2022-06-08 Human immunodeficiency B [facility] Test 02:13:50 virus screening Medicine (procedure) [code = 751090376] Future Scheduled 2022-06-08 ZOSTER VACCINE (1 of 2) [facility] Test 02:13:50 [code = ZOSTER VACCINE Medic ine (1 of 2)] Future Scheduled 2022-06-08 COVID-19 Vaccine (3 - Ba [facility] Test 02:13:50 Booster for Pfizer Medicine series) [code = COVID-19 Vaccine (3 - Booster for Pfizer series)] Future Scheduled 2022-06-08 FLU VACCINE > 6 MONTHS B [facility] Test 02:13:50 [code = FLU VACCINE > 6 Medi cine MONTHS] Future Scheduled 2022-06-08 TETANUS SHOT (ADULT) [facility] Test 02:13:50 [code = TETANUS SHOT Medicin e (ADULT)] Future Scheduled 2022-06-07 US TRANSRECTAL W/NANETTE [facility] Test 14:30:15 BIOPSY [code = 51010] Medici ne Future Scheduled 2022-04-28 COVID-19 Vaccination Uni versity of Test 06:25:43 (#1) [code = COVID-19 [place] MD Castellano Vaccination (#1)] Cancer Emelina ter Future Scheduled 2021-10-[address] [facility] Test 00:00:00 (12+) [code = DEPRESSION [facility] Center SCREENING (12+)] Future Scheduled 2021-06-24 COVID-19 VACCINE (3 - [facility] Test 00:00:00 Booster for Pfizer Medical C enter series) [code = COVID-19 VACCINE (3 - Booster for Pfizer series)] Future Scheduled 2008 SHINGLES VACCINES ([address] [facility] Test 00:00:00 2) [code = SHINGLES Medical Center VACCINES (1 of 2)] Future Scheduled 1993 Lipid panel (procedure) [facility] Test 00:00:00 [code = 65552111] Medical Ce nter Future Scheduled 1976 HEPATITIS C [facility]CRE[facility]ING [facility] 00:00:00 [code = HEPATITIS C Medical Center SCREENING] Future Scheduled 1958 CT Colonography (combo) [facility] Test 00:00:00 [code = CT Colonography [facility] Center (combo)] Future Scheduled 1958 Screening for malignant [facility] Test 00:00:00 neoplasm of colon Medical Ce nter (procedure) [code = 117327858] Future Scheduled 1958 Screening for malignant [facility] Test 00:00:00 neoplasm of colon Medical Ce nter (procedure) [code = 148938804] Future Scheduled 1958 Screening for malignant [facility] Test 00:00:00 neoplasm of colon Medical Ce nter (procedure) [code = 263764008] Future Scheduled 1960 Screening for malignant [facility] Test 00:00:00 neoplasm of colon Medical Ce nter (procedure) [code = 169446805] Future Scheduled 1960 Sigmoidoscopy [code = [facility] 00:[facility] S[facility]oidoscopy] Medical Cente r Encounters Start End Encounter Admission Attending Care Care Encounter Source Date/Time Date/Time Type Type Clinicians Facility Department ID 2022-06-18 Outpatient Batista, Na STLMLC STLMLC [id number] Common 09:10:00 [facility] 2022-03-31 Outpatient Batista, Na STLMLC STLMLC [id number] Common 10:00:00 [facility] 2022-02-24 Outpatient Batista, Na STLMLC STLMLC [id number] Common 20:38:01 [facility] 2022-01-19 Outpatient Batista, Na STLMLC STLMLC [id number] Common 08:25:00 [facility] 2022-01-18 Outpatient Batista, Na STLMLC STLMLC [id number] Common 11:00:01 [facility] 2021-11-18 Outpatient Batista, Na STLMLC STLMLC [id number] 2 Common 12:15:13 [id number] [facility] 2021-11-18 Outpatient Batista, Na STLMLC STLMLC [id number] Common 12:14:04 [id number] [facility] 2021-11-18 Outpatient Batista, Na STLMLC STLMLC [id number] 2 Common 11:46:51 [id number] [facility] 2021-11-18 Outpatient Batista, Na STLMLC STLMLC [id number] 2 Common 11:46:26 [facility] 2021-11-18 Outpatient Batista, Na STLMLC STLMLC [id number] 2 Common 11:17:12 [id number] [facility] 2022-06-23 2022-06-23 ambulatory STLMLC STLMLC [id number] Common 00:00:00 00:00:00 [facility] 2022-06-22 2022-06-22 ambulatory STLMLC STLMLC [id number] Common 00:00:00 00:00:00 [facility] 2022-06-07 2022-06-07 Office MARTHA ADLER [id number] [facility] 14:29:05 14:29:05 Visit AMBULATOR [id number] [employer] Y [id number] Medi chester 300 e 2022-05-21 2022-05-21 ambulatory STLMLC STLMLC [id number] Common 00:00:00 00:00:00 [facility] 2022-05-13 2022-05-13 ambulatory STLMLC STLMLC [id number] Common 00:00:00 00:00:00 [facility] 2022-03-24 2022-03-24 Outpatient EL VALERIE [facility] SLE [id number] [facility] 16:33:34 23:59:00 RUDI 2022-03-24 2022-03-24 [facility] Rudi Padilla [facility] [id number] [facility] 16:33:34 23:59:00 Encounter 3, [facility] Tip [facility] 2022-03-09 2022-03-09 ambulatory STLMLC STLMLC [id number] Common 00:00:00 00:00:00 [facility] 2022-03-08 2022-03-08 ambulatory STLMLC STLMLC [id number] Common 00:00:00 00:00:00 [facility] 2022-03-04 2022-03-04 [id number] 00:00:00 00:00:00 [facility] 2022-03-04 2022-03-04 ambulatory STLMLC STLMLC [id number] Common 00:00:00 00:00:00 [facility] 2022-01-19 2022-01-19 ambulatory STLMLC STLMLC [id number] Common 00:00:00 00:00:00 [facility] 2021-10-08 2021-10-08 ambulatory STLMLC STLMLC [id number] Common 00:00:00 00:00:00 [facility] 2021-07-27 2021-07-27 Outpatient STLMLC STLMLC [id number] Common 00:00:00 00:00:00 [facility] 2021-07-13 2021-07-13 Outpatient STLMLC STLMLC [id number] Common 00:00:00 00:00:00 [facility] 2021-04-10 2021-04-10 Outpatient STLMLC STLMLC [id number] Common 00:00:00 00:00:00 [facility] 2021-04-07 2021-04-07 Outpatient STLMLC STLMLC [id number] Common 00:00:00 00:00:00 [facility] 2020-10-10 2020-10-10 Outpatient STLMLC STLMLC [id number] Common 00:00:00 00:00:00 [facility] 2020-07-11 2020-07-11 Outpatient STLMLC STLMLC [id number] Common 00:00:00 00:00:00 [facility] 2020-05-08 2020-05-08 [facility] [id number] Common 08:20:00 08:20:[address] [facility] 2020-04-29 2020-04-29 [facility] [id number] Common 14:37:00 14:37:[address] [place] [address] [facility] 2020-03-21 2020-04-02 Inpatient [facility]Flavo [facility] [id number] Memoria 15:02:00 19:30:[address] 2020-03-21 2020-04-02 Inpatient nullFlavo [facility] [id number] Memoria 15:02:00 19:30:[address] 2020-03-21 2020-04-02 Inpatient E CINTHYA [facility] [id number] [facility] 20:43:00 14:30:00 SWATHI 2020-03-21 2020-04-02 Outpatient Cinthya [facility] [id number] 10:02:00 14:30:00 [place] [address] 2020-03-23 2020-03-23 [facility] [id number] Common 16:37:00 16:37:[address] [facility] 2020-03-21 2020-03-21 Outpatient CHEYANNE, [facility] LETTY [id number] [facility] 15:38:00 23:59:00 NAV 2019-09-28 2019-09-28 [facility] [id number] Common 08:00:00 08:00:[address] [facility] 2019-07-10 2019-07-10 [facility] [id number] Common 11:20:00 11:20:[address] [facility] 2019-03-29 2019-03-29 [facility] [id number] Common 08:00:00 08:00:[address] [facility] 2019-01-15 2019-01-15 [facility] [id number] Common 14:53:00 14:53:[address] [facility] 2018-09-28 2018-09-28 [facility] [id number] Common 08:30:00 08:30:[address] [facility] 2018-03-29 2018-03-29 [facility] [id number] Common 15:00:00 15:00:[address] [facility] Results Test Description Test Time Test Comments Results Result [facility] e Comments MR, PELVIS, 2022-04-01 Unlisted Reason WITHOUT / WITH IV 15:06:00 for Exam - Click CONTRAST Yes and Enter [facility] Below->YesUnlist CENTERName: helena SALINAS Reason for OMKAR ROMO : Exam->prostate 1960 Sex: nodule, elevated M psaAnesthesia:-> NoneDoes the FINAL patient have an REPORT PATIENT ID: implanted [id number] MRI OF THE electronic PROSTATE WITH AND device?->No WITHOUT CONTRAST CLINICAL HISTORY: Unlisted Reason for Examprostate nodule, elevated psaPSA: not provided COMPARISON: None. TECHNIQUE: MRI of the pelvis was performed without and with intravenous contrast. A transabdominal phased array was used. Small field of view T2W high resolution images and diffusion weighted images with apparent diffusion coefficient map were obtained. Pre- and post-contrast axial dynamic T1-weighted images are acquired with intravenous administration of gadolinium contrast. Full field of view axial T1- and T2-weighted images through the pelvis were also acquired FINDINGS: Quality: Excellent The prostate measures 52 cc (4.7 x 4.7 x 4.5 cm). The background transition zone is heterogeneous with a few BPH nodules, PI-RADS 1. The background peripheral zone is heterogeneous with streaky linear bands of mild T2 hypointensity from prostatitis, with associated mild linear hyperintensity on diffusion weighted images and hypointensity on ADC map, PI-RADS 2. The following appears suspicious (>= PI-RADS 3): Target #1 (T2 coronal image #14)Location: left posteromedial peripheral apical midglandLongest diameter: 0.8 cmCapsular involvement: may abut the capsuleT2 signal: oval moderately hypointense signal with ill-defined margins, 4/5 suspicionDiffusion-orly ghted imaging: focal markedly hyperintense high B-value DWI and markedly hypointense ADC, 4/5 suspicionDynamic contrast-enhanced perfusion: positiveSuspicion for extracapsular extension: 1 (1 = very low suspicion, 2 = unlikely, 3 = intermediate suspicion, 4 = likely, 5 = definite)Suspicion for neurovascular bundle involvement: 1 (1 = none, 2 = possible, 3 = highly likely)Suspicion for seminal vesicle invasion: 1 (1 = very low suspicion, 2 = unlikely, 3 = intermediate suspicion, 4 = likely, 5 = definite)Overall PI-RADSv2.1 Score: 4/5 (1=very low suspicion, 5=very highly suspicious). There is no lymphadenopathy. No focal bone lesions are present. IMPRESSION: 1. A 0.8 cm PI-RADS 4 lesion in the left peripheral zone. 2. Capsular margin: intact . 3. Sequelae of prostatitis. Overall PI-RADS Category: 4/5 Signed: Franc Isaacs Verified Date/Time: 04/01/2022 15:06:36 PANEL 2020-04-01 06:56:00 Test Item Value Reference Range Interpretation Comme nts Globulin (test code = Globulin) 4.4 2.7-4.2 [facility] [id number] 06:56:00 Test Item Value Reference Range Interpretation Comments A/G Ratio (test code = A/G Ratio) 0.6 1 0.7-1.6 [facility] [id number] 06:56:00 Test Item Value Reference Range Interpretation Comments ALT (test code = ALT) 122 See_Comment [Auto mated message] The system which ge nerated this result transmit lawson reference range : <=65. The reference range was not used to interpr et this result as mercy l/abnormal. [facility] [id number] 06:56:00 Test Item Value Reference Range Interpretation Comments AST (test code = AST) 65 See_Comment [Auto mated message] The system which ge nerated this result transmit lawson reference range : <=37. The reference range was not used to interpr et this result as mercy l/abnormal. [facility] [id number] 06:56:00 Test Item Value Reference Range Interpretation Comments Alk Phos (test code = Alk Phos) 43 39-136 [facility] [id number] 06:56:00 Test Item Value Reference Range Interpretation Comments Bili Total (test code = Bili Total) 0.4 0.2-1.3 [facility] [id number] 06:56:00 Test Item Value Reference Range Interpretation Comments eGFR (test code = eGFR) 11 [facility] [id number] 06:56:00 Test Item Value Reference Range Interpretation Comments WBC (test code = WBC) 9.8 3.7-10.4 [facility] [id number] 06:56:00 Test Item Value Reference Range Interpretation Comments RBC (test code = RBC) 3.67 4.70-6.10 [facility] [id number] 06:56:00 Test Item Value Reference Range Interpretation Comments Hgb (test code = Hgb) 11.5 14.0-18.0 [facility] [id number] 06:56:00 Test Item Value Reference Range Interpretation Comments Hct (test code = Hct) 33.8 42.0-54.0 [facility] [id number] 06:56:00 Test Item Value Reference Range Interpretation Comments MCV (test code = MCV) 92.1 80.0-94.0 [facility] [id number] 06:56:00 Test Item Value Reference Range Interpretation Comments MCH (test code = MCH) 31.3 pg 27.0-31.0 [facility] [id number] 06:56:00 Test Item Value Reference Range Interpretation Comments MCHC (test code = MCHC) 33.9 32.0-36.0 [facility] [id number] 06:56:00 Test Item Value Reference Range Interpretation Comments RDW (test code = RDW) 14.7 11.5-14.5 [facility] [id number] 06:56:00 Test Item Value Reference Range Interpretation Comments Platelet (test code = Platelet) 216 133-450 [facility] [facility] [id number] 06:56:00 Test Item Value Reference Range Interpretation Comments MPV (test code = MPV) 9.7 7.4-10.4 [facility] ClubKcwnddfZNLXHNTZSH5123-29-32 06:56:00 Test Item Value Reference Range Interpretation Comments Segs (test code = Segs) 77.3 45.0-75.0 [facility] ClubHrvmlqbDTQWISONOU6527-49-12 06:56:00 Test Item Value Reference Range Interpretation Comments Lymphocytes (test code = Lymphocytes) 9.5 20.0-40.0 [facility] ClubXyybmlvPOBXIPYWOY9994-65-98 06:56:00 Test Item Value Reference Range Interpretation Comments Monocytes (test code = Monocytes) 11.0 2.0-12.0 [place] 857660-06-09 06:56:00 Test Item Value Reference Range Interpretation Comments Eosinophils (test code = 1.3 See_Comment [A utomated message] The Eosinophils) system which ge nerated this result tra nsmitted reference range : <=4.0. The reference r pua was not used to int erpret this result as normal/abnormal . [facility] ClubUvwmwjaQTROAKJPEJ1438-98-32 06:56:00 Test Item Value Reference Range Interpretation Comments Basophils (test code = 0.9 See_Comment [Aut omated message] The Basophils) system which ge nerated this result tra nsmitted reference range : <=1.0. The reference r pau was not used to int erpret this result as normal/abnormal . [facility] ClubHdlfihnCVDYMAZWWB7112-85-16 06:56:00 Test Item Value Reference Range Interpretation Comments Neutrophils # (test code = Neutrophils 7.6 1.5-8.1 #) [facility] [id number] 06:56:00 Test Item Value Reference Range Interpretation Comments Lymphocytes # (test code = Lymphocytes 0.9 1.0-5.5 #) [facility] ClubGjarejbEHJGZCAWKX9567-75-64 06:56:00 Test Item Value Reference Range Interpretation Comments Monocytes # (test code 1.1 See_Comment [Aut omated message] The = Monocytes #) system which generated this result tra nsmitted reference range : <=0.8. The reference r pau was not used to int erpret this result as normal/abnormal . [facility] ClubUbgdnyhHRQHPQNCCZ1187-67-06 06:56:00 Test Item Value Reference Range Interpretation Comments Eosinophils # (test code 0.1 See_Comment [A utomated message] The = Eosinophils #) system whic h generated this result tra nsmitted reference range : <=0.5. The reference r pau was not used to int erpret this result as normal/abnormal . [facility] ClubZxwtwhaQWEBEOOREF0906-01-41 06:56:00 Test Item Value Reference Range Interpretation Comments Basophils # (test code 0.1 See_Comment [Aut omated message] The = Basophils #) system which generated this result tra nsmitted reference range : <=0.2. The reference r pau was not used to int erpret this result as normal/abnormal . [facility]2020-06-09 06:56:00 Test Item Value Reference Range Interpretation Comments Phosphorus (test code = Phosphorus) 5.9 2.5-4.5 [place] 180700-06-09 06:56:00 Test Item Value Reference Range Interpretation Comments Magnesium Lvl (test code = Magnesium 2.7 1.8-2.4 Lvl) [place] 180700-06-09 06:56:00 Test Item Value Reference Range Interpretation Comments Glucose Lvl (test code = Glucose Lvl) 124 70-99 [place] 180700-06-09 06:56:00 Test Item Value Reference Range Interpretation Comments BUN (test code = BUN) 72 7-22 [place] 180700-06-09 06:56:00 Test Item Value Reference Range Interpretation Comments Creatinine Lvl (test code = Creatinine 5.12 0.50-1.40 Lvl) [place] 180700-06-09 06:56:00 Test Item Value Reference Range Interpretation Comments Sodium Lvl (test code = Sodium Lvl) 136 135-145 [place] 180700-06-09 06:56:00 Test Item Value Reference Range Interpretation Comments Potassium Lvl (test code = Potassium 4.6 3.5-5.1 Lvl) [facility]2020-06-09 06:56:00 Test Item Value Reference Range Interpretation Comments Chloride Lvl (test code = Chloride Lvl) 100 95-109 [facility]2020-06-09 06:56:00 Test Item Value Reference Range Interpretation Comments CO2 (test code = CO2) 23 24-32 [place] 180700-06-09 06:56:00 Test Item Value Reference Range Interpretation Comments AGAP (test code = AGAP) 17.6 10.0-20.0 [place] 180700-06-09 06:56:00 Test Item Value Reference Range Interpretation Comments Calcium Lvl (test code = Calcium Lvl) 8.6 8.5-10.5 [place] 180700-06-09 06:56:00 Test Item Value Reference Range Interpretation Comments B/C Ratio (test code = B/C Ratio) 14 1 6-25 [place] 180700-06-09 06:56:00 Test Item Value Reference Range Interpretation Comments Total Protein (test code = Total 7.0 6.4-8.4 Protein) [place] 180700-06-09 06:56:00 Test Item Value Reference Range Interpretation Comments Albumin Lvl (test code = Albumin Lvl) 2.6 3.5-5.0 [place] 180700-06-09 06:56:00 Test Item Value Reference Range Interpretation Comments Albumin Lvl (test code = Albumin Lvl) 2.6 3.5-5.0 [place] 180700-06-09 06:56:00 Test Item Value Reference Range Interpretation Comments Globulin (test code = Globulin) 4.4 2.7-4.2 [place] 180700-06-09 06:56:00 Test Item Value Reference Range Interpretation Comments A/G Ratio (test code = A/G Ratio) 0.6 1 0.7-1.6 [place] 180700-06-09 06:56:00 Test Item Value Reference Range Interpretation Comments ALT (test code = ALT) 122 See_Comment [Auto mated message] The system which ge nerated this result transmit lawson reference range : <=65. The reference range was not used to interpr et this result as mercy l/abnormal. [facility]2020-06-09 06:56:00 Test Item Value Reference Range Interpretation Comments AST (test code = AST) 65 See_Comment [Auto mated message] The system which ge nerated this result transmit lawson reference range : <=37. The reference range was not used to interpr et this result as mercy l/abnormal. [place] 180700-06-09 06:56:00 Test Item Value Reference Range Interpretation Comments Alk Phos (test code = Alk Phos) 43 39-136 [place] 180700-06-09 06:56:00 Test Item Value Reference Range Interpretation Comments Bili Total (test code = Bili Total) 0.4 0.2-1.3 [place] [address]-06-09 06:56:00 Test Item Value Reference Range Interpretation Comments eGFR (test code = eGFR) 11 [facility] ClubWphamgwGFTYQPYATY9086-71-76 06:56:00 Test Item Value Reference Range Interpretation Comments WBC (test code = WBC) 9.8 3.7-10.4 [place] 857660-06-09 06:56:00 Test Item Value Reference Range Interpretation Comments RBC (test code = RBC) 3.67 4.70-6.10 [place] [address]-06-09 06:56:00 Test Item Value Reference Range Interpretation Comments Hgb (test code = Hgb) 11.5 14.0-18.0 [place] 857660-06-09 06:56:00 Test Item Value Reference Range Interpretation Comments Hct (test code = Hct) 33.8 42.0-54.0 [facility] ClubMsfrbooTJTJVGKIDO5953-69-68 06:56:00 Test Item Value Reference Range Interpretation Comments MCV (test code = MCV) 92.1 80.0-94.0 [place] 857660-06-09 06:56:00 Test Item Value Reference Range Interpretation Comments MCH (test code = MCH) 31.3 pg 27.0-31.0 [facility] ClubHrjcricKQERPDGYFY3879-63-38 06:56:00 Test Item Value Reference Range Interpretation Comments MCHC (test code = MCHC) 33.9 32.0-36.0 [facility] ClubFrreeorUNVKNAOCVB8145-68-85 06:56:00 Test Item Value Reference Range Interpretation Comments RDW (test code = RDW) 14.7 11.5-14.5 [place] 857660-06-09 06:56:00 Test Item Value Reference Range Interpretation Comments Platelet (test code = Platelet) 216 133-450 [facility] ClubCnqoxhuILBDSCRAOC0667-93-36 06:56:00 Test Item Value Reference Range Interpretation Comments MPV (test code = MPV) 9.7 7.4-10.4 [place] 857660-06-09 06:56:00 Test Item Value Reference Range Interpretation Comments Segs (test code = Segs) 77.3 45.0-75.0 [facility] ClubWpazchcHSSTGJYUDJ4756-46-56 06:56:00 Test Item Value Reference Range Interpretation Comments Lymphocytes (test code = Lymphocytes) 9.5 20.0-40.0 [place] 857660-06-09 06:56:00 Test Item Value Reference Range Interpretation Comments Monocytes (test code = Monocytes) 11.0 2.0-12.0 [place] [address]-06-09 06:56:00 Test Item Value Reference Range Interpretation Comments Eosinophils (test code = 1.3 See_Comment [A utomated message] The Eosinophils) system which ge nerated this result tra nsmitted reference range : <=4.0. The reference r pau was not used to int erpret this result as normal/abnormal . [facility] ClubMntikmrNGVGJDZOND2522-76-48 06:56:00 Test Item Value Reference Range Interpretation Comments Basophils (test code = 0.9 See_Comment [Aut omated message] The Basophils) system which ge nerated this result tra nsmitted reference range : <=1.0. The reference r pau was not used to int erpret this result as normal/abnormal . [facility] ClubNgtqopnCOKFIYOYGE9218-63-54 06:56:00 Test Item Value Reference Range Interpretation Comments Neutrophils # (test code = Neutrophils 7.6 1.5-8.1 #) [facility] ClubPbvyjxkWYJEGDURTX5047-00-65 06:56:00 Test Item Value Reference Range Interpretation Comments Lymphocytes # (test code = Lymphocytes 0.9 1.0-5.5 #) [facility] ClubZzvpizfHYDYBPVRWR3090-57-30 06:56:00 Test Item Value Reference Range Interpretation Comments Monocytes # (test code 1.1 See_Comment [Aut omated message] The = Monocytes #) system which generated this result tra nsmitted reference range : <=0.8. The reference r pau was not used to int erpret this result as normal/abnormal . [facility] ClubFlguknnTXGCKUDVLF2099-67-04 06:56:00 Test Item Value Reference Range Interpretation Comments Eosinophils # (test code 0.1 See_Comment [A utomated message] The = Eosinophils #) system whic h generated this result tra nsmitted reference range : <=0.5. The reference r pau was not used to int erpret this result as normal/abnormal . [facility] SouthEfqpmrcFUNXGNEPOT0618-28-36 06:56:00 Test Item Value Reference Range Interpretation Comments Basophils # (test code 0.1 See_Comment [Aut omated message] The = Basophils #) system which generated this result tra nsmitted reference range : <=0.2. The reference r pau was not used to int erpret this result as normal/abnormal . [facility]Data[facility] [id number] 06:56:00 Test Item Value Reference Range Interpretation Comments Phosphorus (test code = Phosphorus) 5.9 2.5-4.5 [facility] SouthCodeRyte [id number] 06:56:00 Test Item Value Reference Range Interpretation Comments Magnesium Lvl (test code = Magnesium 2.7 1.8-2.4 Lvl) [facility]2020-06-09 06:56:00 Test Item Value Reference Range Interpretation Comments Glucose Lvl (test code = Glucose Lvl) 124 70-99 [place] 180700-06-09 06:56:00 Test Item Value Reference Range Interpretation Comments BUN (test code = BUN) 72 7-22 [facility]2020-06-09 06:56:00 Test Item Value Reference Range Interpretation Comments Creatinine Lvl (test code = Creatinine 5.12 0.50-1.40 Lvl) [facility]2020-06-09 06:56:00 Test Item Value Reference Range Interpretation Comments Sodium Lvl (test code = Sodium Lvl) 136 135-145 [facility]2020-06-09 06:56:00 Test Item Value Reference Range Interpretation Comments Potassium Lvl (test code = Potassium 4.6 3.5-5.1 Lvl) [facility]2020-06-09 06:56:00 Test Item Value Reference Range Interpretation Comments Chloride Lvl (test code = Chloride Lvl) 100 95-109 [facility]2020-06-09 06:56:00 Test Item Value Reference Range Interpretation Comments CO2 (test code = CO2) 23 24-32 [facility]2020-06-09 06:56:00 Test Item Value Reference Range Interpretation Comments AGAP (test code = AGAP) 17.6 10.0-20.0 [facility]2020-06-09 06:56:00 Test Item Value Reference Range Interpretation Comments Calcium Lvl (test code = Calcium Lvl) 8.6 8.5-10.5 [facility]2020-06-09 06:56:00 Test Item Value Reference Range Interpretation Comments B/C Ratio (test code = B/C Ratio) 14 1 6-25 [facility]2020-06-09 06:56:00 Test Item Value Reference Range Interpretation Comments Total Protein (test code = Total 7.0 6.4-8.4 Protein) [facility] SouthCulture: [id number] 21:56:00 Test Item Value Reference Range Interpretation Comments Culture: Urine (test code = No Growth Culture: Urine) [facility] SouthCulture: [id number] 21:56:00 Test Item Value Reference Range Interpretation Comments Culture: Urine (test code = No Growth Culture: Urine) [facility] AND [id number] 21:09:00 Test Item Value Reference Range Interpretation Comments UA Color (test code = Yellow *NA*(03/31/20 4:09 UA Color) PM) [facility] AND [id number] 21:09:00 Test Item Value Reference Range Interpretation Comments UA Turbidity (test code Marked *ABN*(03/31/20 = UA Turbidity) 4:09 PM) [facility] AND [id number] 21:09:00 Test Item Value Reference Range Interpretation Comments UA Spec Grav (test code = UA Spec 1.009 1 Grav) [facility] AND [id number] 21:09:00 Test Item Value Reference Range Interpretation Comments UA pH (test code = UA pH) 5.0 1 5.0-8.0 [facility] AND [id number] 21:09:00 Test Item Value Reference Range Interpretation Comments UA Protein (test code = UA Protein) 30 mg/dL [facility] AND [id number] 21:09:00 Test Item Value Reference Range Interpretation Comments UA Glucose (test code = UA Negative mg/dL Glucose) [facility] AND [id number] 21:09:00 Test Item Value Reference Range Interpretation Comments UA Ketones (test code = UA Negative mg/dL Ketones) [facility] AND [id number] 21:09:00 Test Item Value Reference Range Interpretation Comments UA Bili (test code = Negative *NA*(03/31/20 UA Bili) 4:09 PM) [facility] AND [id number] 21:09:00 Test Item Value Reference Range Interpretation Comments UA Blood (test code = Moderate *ABN*(03/31/20 UA Blood) 4:09 PM) [facility] AND [id number] 21:09:00 Test Item Value Reference Range Interpretation Comments UA Urobilinogen (test code = UA no gt 0.1-1.0 Urobilinogen) [facility] AND [id number] 21:09:00 Test Item Value Reference Range Interpretation Comments UA Nitrite (test code Negative (03/31/20 4:09 = [facility] Nitrite) PM) [facility] [id number] 21:09:00 Test Item Value Reference Range Interpretation Comments UA Leuk Est (test code Trace *ABN*(03/31/20 4:09 = UA Leuk Est) PM) [facility] [id number] 21:09:00 Test Item Value Reference Range Interpretation Comments UA WBC (test code = 29 See_Comment [Automa lawson message] The UA WBC) system which ge nerated this result transmit lawson reference range : <=5. The reference range was not used to interpr et this result as mercy l/abnormal. [facility] [id number] 21:09:00 Test Item Value Reference Range Interpretation Comments UA RBC (test code = 10 See_Comment [Automa lawson message] The UA RBC) system which ge nerated this result transmit lawson reference range : <=2. The reference range was not used to interpr et this result as mercy l/abnormal. [facility] [id number] 21:09:00 Test Item Value Reference Range Interpretation Comments UA Bacteria (test code = UA Occasional /HPF Bacteria) [facility] [id number] 21:09:00 Test Item Value Reference Range Interpretation Comments UA Mucus (test code = UA Mucus) Few /LPF [facility] [id number] 21:09:00 Test Item Value Reference Range Interpretation Comments UA Amorph Kya (test code = UA Few /HPF Amorph Kya) [facility] [id number] 21:09:00 Test Item Value Reference Range Interpretation Comments UA Gran Cast (test code = UA Gran 6-10 /LPF Cast) [facility] [id number] 21:09:00 Test Item Value Reference Range Interpretation Comments UA Sq Epi (test code = UA Sq Epi) None [facility]en [facility] [id number] 21:09:00 Test Item Value Reference Range Interpretation Comments UA Color (test code = Yellow *NA*(03/31/20 4:09 UA Color) PM) [facility] [id number] 21:09:00 Test Item Value Reference Range Interpretation Comments UA Turbidity (test code Marked *ABN*(03/31/20 = UA Turbidity) 4:09 PM) [facility] AND [id number] 21:09:00 Test Item Value Reference Range Interpretation Comments UA Spec Grav (test code = UA Spec 1.009 1 Grav) [facility] AND [id number] 21:09:00 Test Item Value Reference Range Interpretation Comments UA pH (test code = UA pH) 5.0 1 5.0-8.0 [facility] AND [id number] 21:09:00 Test Item Value Reference Range Interpretation Comments UA Protein (test code = UA Protein) 30 mg/dL [facility] AND [id number] 21:09:00 Test Item Value Reference Range Interpretation Comments UA Glucose (test code = UA Negative mg/dL Glucose) [facility] AND [id number] 21:09:00 Test Item Value Reference Range Interpretation Comments UA Ketones (test code = UA Negative mg/dL Ketones) [facility] AND [id number] 21:09:00 Test Item Value Reference Range Interpretation Comments UA Bili (test code = Negative *NA*(03/31/20 UA Bili) 4:09 PM) [facility] AND [id number] 21:09:00 Test Item Value Reference Range Interpretation Comments UA Blood (test code = Moderate *ABN*(03/31/20 UA Blood) 4:09 PM) [facility] AND [id number] 21:09:00 Test Item Value Reference Range Interpretation Comments UA Urobilinogen (test code = UA no gt 0.1-1.0 Urobilinogen) [facility] AND [id number] 21:09:00 Test Item Value Reference Range Interpretation Comments UA Nitrite (test code Negative (03/31/20 4:09 = UA Nitrite) PM) [facility] AND [id number] 21:09:00 Test Item Value Reference Range Interpretation Comments UA Leuk Est (test code Trace *ABN*(03/31/20 4:09 = UA Leuk Est) PM) [facility] AND [id number] 21:09:00 Test Item Value Reference Range Interpretation Comments UA WBC (test code = 29 See_Comment [Automa lawson message] The UA WBC) system which ge nerated this result transmit lawson reference range : <=5. The reference range was not used to interpr et this result as mercy l/abnormal. [facility] AND [id number] 21:09:00 Test Item Value Reference Range Interpretation Comments UA RBC (test code = 10 See_Comment [Automa lawson message] The UA RBC) system which ge nerated this result transmit lawson reference range : <=2. The reference range was not used to interpr et this result as mercy l/abnormal. [facility]ann[facility] AND [id number] 21:09:00 Test Item Value Reference Range Interpretation Comments UA Bacteria (test code = UA Occasional /HPF Bacteria) [facility] AND [id number] 21:09:00 Test Item Value Reference Range Interpretation Comments UA Mucus (test code = UA Mucus) Few /LPF [facility] AND [id number] 21:09:00 Test Item Value Reference Range Interpretation Comments UA Amorph Kya (test code = UA Few /HPF Amorph Kya) [facility] AND [id number] 21:09:00 Test Item Value Reference Range Interpretation Comments UA Gran Cast (test code = UA Gran 6-10 /LPF Cast) [facility] AND [id number] 21:09:00 Test Item Value Reference Range Interpretation Comments UA Sq Epi (test code = UA Sq Epi) None Seen [facility]2020-06-08 09:44:00 Test Item Value Reference Range Interpretation Comments Glucose Lvl (test code = Glucose Lvl) 173 70-99 [facility]2020-06-08 09:44:00 Test Item Value Reference Range Interpretation Comments BUN (test code = BUN) 92 7-22 [facility]2020-06-08 09:44:00 Test Item Value Reference Range Interpretation Comments Creatinine Lvl (test code = Creatinine 6.26 0.50-1.40 Lvl) [facility]2020-06-08 09:44:00 Test Item Value Reference Range Interpretation Comments Sodium Lvl (test code = Sodium Lvl) 133 135-145 [facility]2020-06-08 09:44:00 Test Item Value Reference Range Interpretation Comments Potassium Lvl (test code = Potassium 4.5 3.5-5.1 Lvl) [facility] CenterCollegeWikisMICHELLE [place] [id number] 09:44:00 Test Item Value Reference Range Interpretation Comments Chloride Lvl (test code = Chloride Lvl) 98 95-109 [place] 180700-06-08 09:44:00 Test Item Value Reference Range Interpretation Comments CO2 (test code = CO2) 22 24-32 [place] 180700-06-08 09:44:00 Test Item Value Reference Range Interpretation Comments Calcium Lvl (test code = Calcium Lvl) 8.3 8.5-10.5 [facility] CenterCollegeWikisMICHELLE [place] [id number] 09:44:00 Test Item Value Reference Range Interpretation Comments Total Protein (test code = Total 6.7 6.4-8.4 Protein) [place] 180700-06-08 09:44:00 Test Item Value Reference Range Interpretation Comments Albumin Lvl (test code = Albumin Lvl) 2.4 3.5-5.0 [facility] CenterData[facility] [id number] 09:44:00 Test Item Value Reference Range Interpretation Comments ALT (test code = ALT) 110 See_Comment [Auto mated message] The system which ge nerated this result transmit lawson reference range : <=65. The reference range was not used to interpr et this result as mercy l/abnormal. [facility] CenterData[facility] [id number] 09:44:00 Test Item Value Reference Range Interpretation Comments AST (test code = AST) 63 See_Comment [Auto mated message] The system which ge nerated this result transmit lawson reference range : <=37. The reference range was not used to interpr et this result as mercy l/abnormal. [facility] CenterData[facility] [id number] 09:44:00 Test Item Value Reference Range Interpretation Comments Alk Phos (test code = Alk Phos) 41 39-136 [facility]Data[facility] [id number] 09:44:00 Test Item Value Reference Range Interpretation Comments Bili Total (test code = Bili Total) 0.3 0.2-1.3 [facility] SouthCodeRyte [id number] 09:44:00 Test Item Value Reference Range Interpretation Comments AGAP (test code = AGAP) 17.5 10.0-20.0 [facility]Data[facility] [id number] 09:44:00 Test Item Value Reference Range Interpretation Comments B/C Ratio (test code = B/C Ratio) 15 1 6-25 [place] [address]-06-08 09:44:00 Test Item Value Reference Range Interpretation Comments Globulin (test code = Globulin) 4.3 2.7-4.2 [place] [address]-06-08 09:44:00 Test Item Value Reference Range Interpretation Comments A/G Ratio (test code = A/G Ratio) 0.6 1 0.7-1.6 [place] [address]-06-08 09:44:00 Test Item Value Reference Range Interpretation Comments eGFR (test code = eGFR) 9 [place] 180700-06-08 09:44:00 Test Item Value Reference Range Interpretation Comments Phosphorus (test code = Phosphorus) 5.8 2.5-4.5 [place] 180700-06-08 09:44:00 Test Item Value Reference Range Interpretation Comments Magnesium Lvl (test code = Magnesium 2.9 1.8-2.4 Lvl) [place] 857660-06-08 09:44:00 Test Item Value Reference Range Interpretation Comments Segs (test code = Segs) 78.4 45.0-75.0 [place] [address]-06-08 09:44:00 Test Item Value Reference Range Interpretation Comments Lymphocytes (test code = Lymphocytes) 8.7 20.0-40.0 [place] [address]-06-08 09:44:00 Test Item Value Reference Range Interpretation Comments Monocytes (test code = Monocytes) 11.3 2.0-12.0 [place] [address]-06-08 09:44:00 Test Item Value Reference Range Interpretation Comments Eosinophils (test code = 1.2 See_Comment [A utomated message] The Eosinophils) system which ge nerated this result tra nsmitted reference range : <=4.0. The reference r pau was not used to int erpret this result as normal/abnormal . [place] 857660-06-08 09:44:00 Test Item Value Reference Range Interpretation Comments Basophils (test code = 0.4 See_Comment [Aut omated message] The Basophils) system which ge nerated this result tra nsmitted reference range : <=1.0. The reference r pau was not used to int erpret this result as normal/abnormal . [facility] ClubLrpqegnCDLZZPFZCA2422-06-55 09:44:00 Test Item Value Reference Range Interpretation Comments Neutrophils # (test code = Neutrophils 9.6 1.5-8.1 #) [facility] ClubIjjihxlNIBGHJQLPG2448-43-61 09:44:00 Test Item Value Reference Range Interpretation Comments Lymphocytes # (test code = Lymphocytes 1.1 1.0-5.5 #) [facility] ClubHotjznbYIOVTLKQZN4007-67-84 09:44:00 Test Item Value Reference Range Interpretation Comments Monocytes # (test code 1.4 See_Comment [Aut omated message] The = Monocytes #) system which generated this result tra nsmitted reference range : <=0.8. The reference r pau was not used to int erpret this result as normal/abnormal . [facility] ClubVfmfaxgIQTIZAFGCR4256-85-05 09:44:00 Test Item Value Reference Range Interpretation Comments Eosinophils # (test code 0.1 See_Comment [A utomated message] The = Eosinophils #) system whic h generated this result tra nsmitted reference range : <=0.5. The reference r pau was not used to int erpret this result as normal/abnormal . [facility] ClubAknlmaaMZRTSZORFR6907-12-51 09:44:00 Test Item Value Reference Range Interpretation Comments WBC (test code = WBC) 12.2 3.7-10.4 [facility] ClubUjqtuguAVSLXODBHS5906-52-96 09:44:00 Test Item Value Reference Range Interpretation Comments RBC (test code = RBC) 3.68 4.70-6.10 [facility] ClubXagsmwmHLDRAIRJZV3956-55-20 09:44:00 Test Item Value Reference Range Interpretation Comments Hgb (test code = Hgb) 11.5 14.0-18.0 [facility] ClubGxkghykWNIUXRSCPN8161-91-06 09:44:00 Test Item Value Reference Range Interpretation Comments Hct (test code = Hct) 33.3 42.0-54.0 [facility] ClubMaxcnoyGKNYFWMVUF7327-81-34 09:44:00 Test Item Value Reference Range Interpretation Comments MCV (test code = MCV) 90.4 80.0-94.0 [facility] ClubEsbwjwpYGVJJDUVNO2219-43-54 09:44:00 Test Item Value Reference Range Interpretation Comments MCH (test code = MCH) 31.3 pg 27.0-31.0 [place] 857660-06-08 09:44:00 Test Item Value Reference Range Interpretation Comments MCHC (test code = MCHC) 34.6 32.0-36.0 [place] 857660-06-08 09:44:00 Test Item Value Reference Range Interpretation Comments RDW (test code = RDW) 14.1 11.5-14.5 [place] [address]-06-08 09:44:00 Test Item Value Reference Range Interpretation Comments Platelet (test code = Platelet) 217 133-450 [place] 857660-06-08 09:44:00 Test Item Value Reference Range Interpretation Comments MPV (test code = MPV) 8.6 7.4-10.4 [place] 180700-06-08 09:44:00 Test Item Value Reference Range Interpretation Comments Glucose Lvl (test code = Glucose Lvl) 173 70-99 [facility]2020-06-08 09:44:00 Test Item Value Reference Range Interpretation Comments BUN (test code = BUN) 92 7-22 [place] 180700-06-08 09:44:00 Test Item Value Reference Range Interpretation Comments Creatinine Lvl (test code = Creatinine 6.26 0.50-1.40 Lvl) [place] 180700-06-08 09:44:00 Test Item Value Reference Range Interpretation Comments Sodium Lvl (test code = Sodium Lvl) 133 135-145 [place] 180700-06-08 09:44:00 Test Item Value Reference Range Interpretation Comments Potassium Lvl (test code = Potassium 4.5 3.5-5.1 Lvl) [place] 180700-06-08 09:44:00 Test Item Value Reference Range Interpretation Comments Chloride Lvl (test code = Chloride Lvl) 98 95-109 [place] 180700-06-08 09:44:00 Test Item Value Reference Range Interpretation Comments CO2 (test code = CO2) 22 24-32 [place] 180700-06-08 09:44:00 Test Item Value Reference Range Interpretation Comments Calcium Lvl (test code = Calcium Lvl) 8.3 8.5-10.5 [place] 180700-06-08 09:44:00 Test Item Value Reference Range Interpretation Comments Total Protein (test code = Total 6.7 6.4-8.4 Protein) [facility] [employer] [id number] 09:44:00 Test Item Value Reference Range Interpretation Comments Albumin Lvl (test code = Albumin Lvl) 2.4 3.5-5.0 [facility] [employer] [id number] 09:44:00 Test Item Value Reference Range Interpretation Comments ALT (test code = ALT) 110 See_Comment [Auto mated message] The system which ge nerated this result transmit lawson reference range : <=65. The reference range was not used to interpr et this result as mercy l/abnormal. [facility] [employer] [id number] 09:44:00 Test Item Value Reference Range Interpretation Comments AST (test code = AST) 63 See_Comment [Auto mated message] The system which ge nerated this result transmit lawson reference range : <=37. The reference range was not used to interpr et this result as mercy l/abnormal. [facility] [employer] [id number] 09:44:00 Test Item Value Reference Range Interpretation Comments Alk Phos (test code = Alk Phos) 41 39-136 [facility] [employer] [id number] 09:44:00 Test Item Value Reference Range Interpretation Comments Bili Total (test code = Bili Total) 0.3 0.2-1.3 [facility] [employer] [id number] 09:44:00 Test Item Value Reference Range Interpretation Comments AGAP (test code = AGAP) 17.5 10.0-20.0 [facility] [employer] [id number] 09:44:00 Test Item Value Reference Range Interpretation Comments B/C Ratio (test code = B/C Ratio) 15 1 6-25 [facility] [employer] [id number] 09:44:00 Test Item Value Reference Range Interpretation Comments Globulin (test code = Globulin) 4.3 2.7-4.2 [facility] [employer] [id number] 09:44:00 Test Item Value Reference Range Interpretation Comments A/G Ratio (test code = A/G Ratio) 0.6 1 0.7-1.6 [facility] [employer] [id number] 09:44:00 Test Item Value Reference Range Interpretation Comments eGFR (test code = eGFR) 9 [facility] HospitalXNAII5545-40-97 09:44:00 Test Item Value Reference Range Interpretation Comments Phosphorus (test code = Phosphorus) 5.8 2.5-4.[address] [facility] [id number] 09:44:00 Test Item Value Reference Range Interpretation Comments Magnesium Lvl (test code = Magnesium 2.9 1.8-2.4 Lvl) [facility] ClubRlqvwlvXWBNQDPLEH3837-35-59 09:44:00 Test Item Value Reference Range Interpretation Comments Segs (test code = Segs) 78.4 45.0-75.0 [place] 857660-06-08 09:44:00 Test Item Value Reference Range Interpretation Comments Lymphocytes (test code = Lymphocytes) 8.7 20.0-40.0 [place] [address]-06-08 09:44:00 Test Item Value Reference Range Interpretation Comments Monocytes (test code = Monocytes) 11.3 2.0-12.0 [place] [address]-06-08 09:44:00 Test Item Value Reference Range Interpretation Comments Eosinophils (test code = 1.2 See_Comment [A utomated message] The Eosinophils) system which ge nerated this result tra nsmitted reference range : <=4.0. The reference r pau was not used to int erpret this result as normal/abnormal . [facility] ClubDwiktguXJANGJGKDI6077-01-77 09:44:00 Test Item Value Reference Range Interpretation Comments Basophils (test code = 0.4 See_Comment [Aut omated message] The Basophils) system which ge nerated this result tra nsmitted reference range : <=1.0. The reference r pau was not used to int erpret this result as normal/abnormal . [facility] ClubRtomjipISNEYCXHPT6149-24-81 09:44:00 Test Item Value Reference Range Interpretation Comments Neutrophils # (test code = Neutrophils 9.6 1.5-8.1 #) [place] 857660-06-08 09:44:00 Test Item Value Reference Range Interpretation Comments Lymphocytes # (test code = Lymphocytes 1.1 1.0-5.5 #) [place] [address]-06-08 09:44:00 Test Item Value Reference Range Interpretation Comments Monocytes # (test code 1.4 See_Comment [Aut omated message] The = Monocytes #) system which generated this result tra nsmitted reference range : <=0.8. The reference r pau was not used to int erpret this result as normal/abnormal . [facility] ClubUtardivXHNPJMITCW7355-99-12 09:44:00 Test Item Value Reference Range Interpretation Comments Eosinophils # (test code 0.1 See_Comment [A utomated message] The = Eosinophils #) system whic h generated this result tra nsmitted reference range : <=0.5. The reference r pau was not used to int erpret this result as normal/abnormal . [facility] ClubDttfgmyNTTYOKEKHD7989-27-33 09:44:00 Test Item Value Reference Range Interpretation Comments WBC (test code = WBC) 12.2 3.7-10.4 [facility] ClubOaoinduJLDSFDWSKT6519-57-16 09:44:00 Test Item Value Reference Range Interpretation Comments RBC (test code = RBC) 3.68 4.70-6.10 [facility] ClubHkaatoiWAIOTHDPEN7536-20-31 09:44:00 Test Item Value Reference Range Interpretation Comments Hgb (test code = Hgb) 11.5 14.0-18.0 [place] 857660-06-08 09:44:00 Test Item Value Reference Range Interpretation Comments Hct (test code = Hct) 33.3 42.0-54.0 [facility] ClubVjeuebnRPBDQXJVBA4552-10-05 09:44:00 Test Item Value Reference Range Interpretation Comments MCV (test code = MCV) 90.4 80.0-94.0 [place] 857660-06-08 09:44:00 Test Item Value Reference Range Interpretation Comments MCH (test code = MCH) 31.3 pg 27.0-31.0 [facility] ClubDskbaikQYQOTTAHGN2573-22-15 09:44:00 Test Item Value Reference Range Interpretation Comments MCHC (test code = MCHC) 34.6 32.0-36.0 [facility] ClubMdsjcsiPRCKGOBMIP3368-13-95 09:44:00 Test Item Value Reference Range Interpretation Comments RDW (test code = RDW) 14.1 11.5-14.5 [place] 857660-06-08 09:44:00 Test Item Value Reference Range Interpretation Comments Platelet (test code = Platelet) 217 133-450 [facility] ClubQfoqybfLMCHDPHZII1434-83-98 09:44:00 Test Item Value Reference Range Interpretation Comments MPV (test code = MPV) 8.6 7.4-10.4 [facility]2020-06-07 08:02:00 Test Item Value Reference Range Interpretation Comments Phosphorus (test code = Phosphorus) 4.6 2.5-4.5 [facility]2020-06-07 08:02:00 Test Item Value Reference Range Interpretation Comments Magnesium Lvl (test code = Magnesium 2.7 1.8-2.4 Lvl) [facility]2020-06-07 08:02:00 Test Item Value Reference Range Interpretation Comments Glucose Lvl (test code = Glucose Lvl) 161 70-99 [facility]2020-06-07 08:02:00 Test Item Value Reference Range Interpretation Comments BUN (test code = BUN) 68 7-22 [place] 180700-06-07 08:02:00 Test Item Value Reference Range Interpretation Comments Creatinine Lvl (test code = Creatinine 5.36 0.50-1.40 Lvl) [facility]2020-06-07 08:02:00 Test Item Value Reference Range Interpretation Comments Sodium Lvl (test code = Sodium Lvl) 136 135-145 [place] 180700-06-07 08:02:00 Test Item Value Reference Range Interpretation Comments Potassium Lvl (test code = Potassium 4.3 3.5-5.1 Lvl) [facility]2020-06-07 08:02:00 Test Item Value Reference Range Interpretation Comments Chloride Lvl (test code = Chloride Lvl) 102 95-109 [place] 180700-06-07 08:02:00 Test Item Value Reference Range Interpretation Comments CO2 (test code = CO2) 25 24-32 [place] 180700-06-07 08:02:00 Test Item Value Reference Range Interpretation Comments Calcium Lvl (test code = Calcium Lvl) 8.3 8.5-10.5 [place] 180700-06-07 08:02:00 Test Item Value Reference Range Interpretation Comments Total Protein (test code = Total 6.4 6.4-8.4 Protein) [place] 180700-06-07 08:02:00 Test Item Value Reference Range Interpretation Comments Albumin Lvl (test code = Albumin Lvl) 2.3 3.5-5.0 [place] 180700-06-07 08:02:00 Test Item Value Reference Range Interpretation Comments ALT (test code = ALT) 116 See_Comment [Auto mated message] The system which ge nerated this result transmit lawson reference range : <=65. The reference range was not used to interpr et this result as mercy l/abnormal. [facility] [employer] [id number] 08:02:00 Test Item Value Reference Range Interpretation Comments AST (test code = AST) 68 See_Comment [Auto mated message] The system which ge nerated this result transmit lawson reference range : <=37. The reference range was not used to interpr et this result as mercy l/abnormal. [employer]0-06-07 08:02:00 Test Item Value Reference Range Interpretation Comments Alk Phos (test code = Alk Phos) 37 39-136 [facility] [employer] [id number] 08:02:00 Test Item Value Reference Range Interpretation Comments Bili Total (test code = Bili Total) 0.3 0.2-1.3 [facility] [employer] [id number] 08:02:00 Test Item Value Reference Range Interpretation Comments AGAP (test code = AGAP) 13.3 10.0-20.0 [facility] [employer]2020-06-07 08:02:00 Test Item Value Reference Range Interpretation Comments B/C Ratio (test code = B/C Ratio) 13 1 6-25 [facility] [employer] [id number] 08:02:00 Test Item Value Reference Range Interpretation Comments Globulin (test code = Globulin) 4.1 2.7-4.2 [facility] [employer]2020-06-07 08:02:00 Test Item Value Reference Range Interpretation Comments A/G Ratio (test code = A/G Ratio) 0.6 1 0.7-1.6 [facility] [employer]0-06-07 08:02:00 Test Item Value Reference Range Interpretation Comments eGFR (test code = eGFR) 11 [facility] KakbtjcAVCGERSPMB2698-66-63 08:02:00 Test Item Value Reference Range Interpretation Comments WBC (test code = WBC) 11.6 3.7-10.4 [facility] RzckgdyDXEVQETQRD0071-05-95 08:02:00 Test Item Value Reference Range Interpretation Comments RBC (test code = RBC) 3.72 4.70-6.10 [facility] ClubEdrnxsmNDKGGNZPIH0797-83-18 08:02:00 Test Item Value Reference Range Interpretation Comments Hgb (test code = Hgb) 11.7 14.0-18.0 [facility] ClubTswhykqWSFVJSPNJV8079-70-71 08:02:00 Test Item Value Reference Range Interpretation Comments Hct (test code = Hct) 34.1 42.0-54.0 [facility] ClubOrahdzkWNUIKKINOM6489-59-13 08:02:00 Test Item Value Reference Range Interpretation Comments MCV (test code = MCV) 91.6 80.0-94.0 [facility] ClubSepcavsWYZFBLLBEM0069-97-55 08:02:00 Test Item Value Reference Range Interpretation Comments MCH (test code = MCH) 31.5 pg 27.0-31.0 [facility] ClubUxsuabnAZGQFWTVRU9098-46-21 08:02:00 Test Item Value Reference Range Interpretation Comments MCHC (test code = MCHC) 34.4 32.0-36.0 [facility] ClubFxujyytTMOQIAMFBK6214-65-27 08:02:00 Test Item Value Reference Range Interpretation Comments RDW (test code = RDW) 14.0 11.5-14.5 [facility] ClubQntqridAALPSGALJA3762-40-87 08:02:00 Test Item Value Reference Range Interpretation Comments Platelet (test code = Platelet) 215 133-450 [facility] ClubWiraehzHKVZVYTFJJ3419-73-17 08:02:00 Test Item Value Reference Range Interpretation Comments MPV (test code = MPV) 9.6 7.4-10.4 [facility] ClubTcwjgxbUZFEXASXGD1109-27-99 08:02:00 Test Item Value Reference Range Interpretation Comments RBC Morph (test code = Normal (03/30/20 3:02 AM) RBC Morph) [facility] ClubMejqvexJAQAJMVYHT7195-15-00 08:02:00 Test Item Value Reference Range Interpretation Comments Plt Morph (test code = Normal (03/30/20 3:02 AM) Plt Morph) [facility] ClubMsieqdwOTAPXQDVCI3118-43-38 08:02:00 Test Item Value Reference Range Interpretation Comments Segs (test code = Segs) 78.0 45.0-75.0 [facility] ClubOtkvvjsWUNANCGAPA1270-22-09 08:02:00 Test Item Value Reference Range Interpretation Comments Lymphocytes (test code = Lymphocytes) 9.0 20.0-40.0 [place] 857660-06-07 08:02:00 Test Item Value Reference Range Interpretation Comments Monocytes (test code = Monocytes) 11.0 2.0-12.0 [facility] ClubQirgbluVXBIOBJVQZ4613-42-30 08:02:00 Test Item Value Reference Range Interpretation Comments Eosinophils (test code = 2.0 See_Comment [A utomated message] The Eosinophils) system which ge nerated this result tra nsmitted reference range : <=4.0. The reference r pau was not used to int erpret this result as normal/abnormal . [facility] ClubMnaagupSJNDEDZUQU3723-10-62 08:02:00 Test Item Value Reference Range Interpretation Comments Basophils (test code = 0.0 See_Comment [Aut omated message] The Basophils) system which ge nerated this result tra nsmitted reference range : <=1.0. The reference r pau was not used to int erpret this result as normal/abnormal . [facility] ClubLpmjfssPGIXCWVSZF2675-30-12 08:02:00 Test Item Value Reference Range Interpretation Comments Neutrophils # (test code = Neutrophils 9.1 1.5-8.1 #) [facility] ClubLoaocctRJLMRCUGQN9266-15-11 08:02:00 Test Item Value Reference Range Interpretation Comments Lymphocytes # (test code = Lymphocytes 0.9 1.0-5.5 #) [facility] ClubRdlbopgMTRMYZCOTP0419-67-64 08:02:00 Test Item Value Reference Range Interpretation Comments Monocytes # (test code 1.3 See_Comment [Aut omated message] The = Monocytes #) system which generated this result tra nsmitted reference range : <=0.8. The reference r pau was not used to int erpret this result as normal/abnormal . [facility] ClubFleokvaEEAVIMFEOR2782-68-37 08:02:00 Test Item Value Reference Range Interpretation Comments Eosinophils # (test code 0.2 See_Comment [A utomated message] The = Eosinophils #) system whic h generated this result tra nsmitted reference range : <=0.5. The reference r pau was not used to int erpret this result as normal/abnormal . [facility]Data[facility] [id number] 08:02:00 Test Item Value Reference Range Interpretation Comments Phosphorus (test code = Phosphorus) 4.6 2.5-4.5 [place] 180700-06-07 08:02:00 Test Item Value Reference Range Interpretation Comments Magnesium Lvl (test code = Magnesium 2.7 1.8-2.4 Lvl) [place] 180700-06-07 08:02:00 Test Item Value Reference Range Interpretation Comments Glucose Lvl (test code = Glucose Lvl) 161 70-99 [place] [address]-06-07 08:02:00 Test Item Value Reference Range Interpretation Comments BUN (test code = BUN) 68 7-22 [place] [address]-06-07 08:02:00 Test Item Value Reference Range Interpretation Comments Creatinine Lvl (test code = Creatinine 5.36 0.50-1.40 Lvl) [place] [address]-06-07 08:02:00 Test Item Value Reference Range Interpretation Comments Sodium Lvl (test code = Sodium Lvl) 136 135-145 [place] [address]-06-07 08:02:00 Test Item Value Reference Range Interpretation Comments Potassium Lvl (test code = Potassium 4.3 3.5-5.1 Lvl) [place] [address]-06-07 08:02:00 Test Item Value Reference Range Interpretation Comments Chloride Lvl (test code = Chloride Lvl) 102 95-109 [place] 180700-06-07 08:02:00 Test Item Value Reference Range Interpretation Comments CO2 (test code = CO2) 25 24-32 [place] [address]-06-07 08:02:00 Test Item Value Reference Range Interpretation Comments Calcium Lvl (test code = Calcium Lvl) 8.3 8.5-10.5 [place] [address]-06-07 08:02:00 Test Item Value Reference Range Interpretation Comments Total Protein (test code = Total 6.4 6.4-8.4 Protein) [place] 180700-06-07 08:02:00 Test Item Value Reference Range Interpretation Comments Albumin Lvl (test code = Albumin Lvl) 2.3 3.5-5.0 [place] [address]-06-07 08:02:00 Test Item Value Reference Range Interpretation Comments ALT (test code = ALT) 116 See_Comment [Auto mated message] The system which ge nerated this result transmit lawson reference range : <=65. The reference range was not used to interpr et this result as mercy l/abnormal. [facility] SouthCodeRyte [id number] 08:02:00 Test Item Value Reference Range Interpretation Comments AST (test code = AST) 68 See_Comment [Auto mated message] The system which ge nerated this result transmit lawson reference range : <=37. The reference range was not used to interpr et this result as mercy l/abnormal. [facility] CenterDataContact [id number] 08:02:00 Test Item Value Reference Range Interpretation Comments Alk Phos (test code = Alk Phos) 37 39-136 [facility] CenterDataContact QYDUU2017-02-28 08:02:00 Test Item Value Reference Range Interpretation Comments Bili Total (test code = Bili Total) 0.3 0.2-1.3 [facility] SouthCodeRyte [id number] 08:02:00 Test Item Value Reference Range Interpretation Comments AGAP (test code = AGAP) 13.3 10.0-20.0 [facility] SouthCodeRyte [id number] 08:02:00 Test Item Value Reference Range Interpretation Comments B/C Ratio (test code = B/C Ratio) 13 1 6-25 [facility] SouthCodeRyte [id number] 08:02:00 Test Item Value Reference Range Interpretation Comments Globulin (test code = Globulin) 4.1 2.7-4.2 [facility] SouthCodeRyte [id number] 08:02:00 Test Item Value Reference Range Interpretation Comments A/G Ratio (test code = A/G Ratio) 0.6 1 0.7-1.6 [facility] SouthCodeRyte [id number] 08:02:00 Test Item Value Reference Range Interpretation Comments eGFR (test code = eGFR) 11 [facility] ClubKitqtdpBIJTRAYZWZ4397-20-78 08:02:00 Test Item Value Reference Range Interpretation Comments WBC (test code = WBC) 11.6 3.7-10.4 [facility] ClubXhcmzmcZHBYHNVBIY1782-42-01 08:02:00 Test Item Value Reference Range Interpretation Comments RBC (test code = RBC) 3.72 4.70-6.10 [facility] ClubTylogggYJSZURHLTL3518-67-50 08:02:00 Test Item Value Reference Range Interpretation Comments Hgb (test code = Hgb) 11.7 14.0-18.0 [facility] ClubWcqsbslWWQHGMGEAS3975-46-50 08:02:00 Test Item Value Reference Range Interpretation Comments Hct (test code = Hct) 34.1 42.0-54.0 [facility] ClubRsygfljOQMTQKKAVG6364-20-07 08:02:00 Test Item Value Reference Range Interpretation Comments MCV (test code = MCV) 91.6 80.0-94.0 [facility] ClubTafrrwiGLLXEKCXRY4661-23-79 08:02:00 Test Item Value Reference Range Interpretation Comments MCH (test code = MCH) 31.5 pg 27.0-31.0 [facility] ClubPhnpidwZTGTPRCIAY7698-22-09 08:02:00 Test Item Value Reference Range Interpretation Comments MCHC (test code = MCHC) 34.4 32.0-36.0 [facility] ClubKlthpwfVGDVBMUOOV8809-81-71 08:02:00 Test Item Value Reference Range Interpretation Comments RDW (test code = RDW) 14.0 11.5-14.5 [facility] ClubSvtahpaVKFTKJMMZG2001-35-27 08:02:00 Test Item Value Reference Range Interpretation Comments Platelet (test code = Platelet) 215 133-450 [facility] ClubIfmqofiSIVMODDUGJ6954-96-32 08:02:00 Test Item Value Reference Range Interpretation Comments MPV (test code = MPV) 9.6 7.4-10.4 [facility] ClubNabjqagDDOBVMLNTR5304-30-59 08:02:00 Test Item Value Reference Range Interpretation Comments RBC Morph (test code = Normal (03/30/20 3:02 AM) RBC Morph) [facility] ClubJotqhqsGKUBVUNJUO3476-40-76 08:02:00 Test Item Value Reference Range Interpretation Comments Plt Morph (test code = Normal (03/30/20 3:02 AM) Plt Morph) [facility] ClubNfelhezBGGVQCKYNM8923-50-52 08:02:00 Test Item Value Reference Range Interpretation Comments Segs (test code = Segs) 78.0 45.0-75.0 [facility] ClubTgceztlTNMNAUZGTB8940-47-89 08:02:00 Test Item Value Reference Range Interpretation Comments Lymphocytes (test code = Lymphocytes) 9.0 20.0-40.0 [place] 857660-06-07 08:02:00 Test Item Value Reference Range Interpretation Comments Monocytes (test code = Monocytes) 11.0 2.0-12.0 [place] 857660-06-07 08:02:00 Test Item Value Reference Range Interpretation Comments Eosinophils (test code = 2.0 See_Comment [A utomated message] The Eosinophils) system which ge nerated this result tra nsmitted reference range : <=4.0. The reference r pau was not used to int erpret this result as normal/abnormal . [facility] ClubEmszpphJCFHZYWBBZ9320-57-19 08:02:00 Test Item Value Reference Range Interpretation Comments Basophils (test code = 0.0 See_Comment [Aut omated message] The Basophils) system which ge nerated this result tra nsmitted reference range : <=1.0. The reference r pau was not used to int erpret this result as normal/abnormal . [facility] ClubLqnkgpsBWDDDJGHLL3305-55-49 08:02:00 Test Item Value Reference Range Interpretation Comments Neutrophils # (test code = Neutrophils 9.1 1.5-8.1 #) [facility] ClubVlzjplbWWRPSWKABB9737-75-68 08:02:00 Test Item Value Reference Range Interpretation Comments Lymphocytes # (test code = Lymphocytes 0.9 1.0-5.5 #) [facility] ClubJgcwreyPOUKNFNPFQ0544-18-89 08:02:00 Test Item Value Reference Range Interpretation Comments Monocytes # (test code 1.3 See_Comment [Aut omated message] The = Monocytes #) system which generated this result tra nsmitted reference range : <=0.8. The reference r pau was not used to int erpret this result as normal/abnormal . [facility] ClubCbcyjtwNWGCMUZCOM9126-23-69 08:02:00 Test Item Value Reference Range Interpretation Comments Eosinophils # (test code 0.2 See_Comment [A utomated message] The = Eosinophils #) system whic h generated this result tra nsmitted reference range : <=0.5. The reference r pau was not used to int erpret this result as normal/abnormal . [facility] SouthCARDI [id number] 05:45:00 Test Item Value Reference Range Interpretation Comments Total CK (test code = Total CK) 834 12-191 [facility] ClubSmrbcpbRTYUCCYWSF6655-43-84 05:45:00 Test Item Value Reference Range Interpretation Comments Basophils # (test code 0.1 See_Comment [Aut omated message] The = Basophils #) system which generated this result tra nsmitted reference range : <=0.2. The reference r pau was not used to int erpret this result as normal/abnormal . [facility] Flogs.comannSTORYS.JPDIAC MHNQULQ0505-73-72 05:45:00 Test Item Value Reference Range Interpretation Comments Total CK (test code = Total CK) 834 [facility] SouthVdkreuzEGRJGGOJIH8151-86-94 05:45:00 Test Item Value Reference Range Interpretation Comments Basophils # (test code 0.1 See_Comment [Aut omated message] The = Basophils #) system which generated this result tra nsmitted reference range : <=0.2. The reference r pau was not used to int erpret this result as normal/abnormal . [facility] [employer]Z [employer]AC [id number] 05:59:00 Test Item Value Reference Range Interpretation Comments Total CK (test code = Total CK) 669 [facility] CenterNetMoviesAC QMUQZDS2865-23-71 05:59:00 Test Item Value Reference Range Interpretation Comments Total CK (test code = Total CK) 658 [facility] [employer] [id number] 05:59:00 Test Item Value Reference Range Interpretation Comments Procalcitonin Lvl (test 2.37 See_Comment [Au tomated message] code = Procalcitonin Lvl) Th e system which generated this result transmitted ref erence range: <=0.10. The reference range was not used to interpr et this result as normal/abnormal . [facility] T4 MediaPARATHYROID [id number] 05:59:00 Test Item Value Reference Range Interpretation Comments Ca Ion WB (test code = Ca Ion WB) 1.11 1.05-1.25 [facility] T4 MediaPARATHYROID [id number] 05:59:00 Test Item Value Reference Range Interpretation Comments Ca Norm WB (test code = Ca Norm WB) 1.11 1.05-1.25 [facility] Flogs.comannSTORYS.JPDIAC ZUHXIFJ2756-82-97 05:59:00 Test Item Value Reference Range Interpretation Comments Total CK (test code = Total CK) 669 [facility] CenterNetMoviesAC [id number] 05:59:00 Test Item Value Reference Range Interpretation Comments Total CK (test code = Total CK) 658 [facility] [employer] [id number] 05:59:00 Test Item Value Reference Range Interpretation Comments Procalcitonin Lvl (test 2.37 See_Comment [Au tomated message] code = Procalcitonin Lvl) Th e system which generated this result transmitted ref erence range: <=0.10. The reference range was not used to interpr et this result as normal/abnormal . [facility]2020-06-05 05:59:00 Test Item Value Reference Range Interpretation Comments Ca Ion WB (test code = Ca Ion WB) 1.11 1.05-1.25 [facility]2020-06-05 05:59:00 Test Item Value Reference Range Interpretation Comments Ca Norm WB (test code = Ca Norm WB) 1.11 1.05-1.25 [facility] CenterDataContact [id number] 05:51:00 Test Item Value Reference Range Interpretation Comments Procalcitonin Lvl (test 3.87 See_Comment [Au tomated message] code = Procalcitonin Lvl) Th e system which generated this result transmitted ref erence range: <=0.10. The reference range was not used to interpr et this result as normal/abnormal . [facility]2020-06-04 05:51:00 Test Item Value Reference Range Interpretation Comments Ca Ion WB (test code = Ca Ion WB) 0.99 1.05-1.25 [facility]2020-06-04 05:51:00 Test Item Value Reference Range Interpretation Comments Ca Norm WB (test code = Ca Norm WB) 1.02 1.05-1.25 [facility] SouthCodeRyte [id number] 05:51:00 Test Item Value Reference Range Interpretation Comments Procalcitonin Lvl (test 3.87 See_Comment [Au tomated message] code = Procalcitonin Lvl) Th e system which generated this result transmitted ref erence range: <=0.10. The reference range was not used to interpr et this result as normal/abnormal . [facility]2020-06-04 05:51:00 Test Item Value Reference Range Interpretation Comments Ca Ion WB (test code = Ca Ion WB) 0.99 1.05-1.25 [facility]2020-06-04 05:51:00 Test Item Value Reference Range Interpretation Comments Ca Norm WB (test code = Ca Norm WB) 1.02 1.05-1.25 [facility] [employer] [id number] 05:08:00 Test Item Value Reference Range Interpretation Comments Procalcitonin Lvl (test 6.15 See_Comment [Au tomated message] code = Procalcitonin Lvl) Th e system which generated this result transmitted ref erence range: <=0.10. The reference range was not used to interpr et this result as normal/abnormal . [facility] [employer] [id number] 05:08:00 Test Item Value Reference Range Interpretation Comments Ca Ion WB (test code = Ca Ion WB) 1.11 1.05-1.25 [facility] Land[employer] MobileMUSC HEALTH UNIVERSITY MEDICAL CENTERZHZRTBH9562-14-59 05:08:00 Test Item Value Reference Range Interpretation Comments Ca Norm WB (test code = Ca Norm WB) 1.13 1.05-1.25 [facility] [employer] [id number] 05:08:00 Test Item Value Reference Range Interpretation Comments Procalcitonin Lvl (test 6.15 See_Comment [Au tomated message] code = Procalcitonin Lvl) Th e system which generated this result transmitted ref erence range: <=0.10. The reference range was not used to interpr et this result as normal/abnormal . [facility] CenterReaching Our Outdoor Friends (ROOF)[facility] CENTERJKTWAPH7154-71-05 05:08:00 Test Item Value Reference Range Interpretation Comments Ca Ion WB (test code = Ca Ion WB) 1.11 1.05-1.25 [facility] [employer] [id number] 05:08:00 Test Item Value Reference Range Interpretation Comments Ca Norm WB (test code = Ca Norm WB) 1.13 1.05-1.25 [facility] CenterUudxzvtZBQZDIPLYZ5521-45-67 17:49:00 Test Item Value Reference Range Interpretation Comments PT (test code = PT) 14.6 s 12.0-14.7 [facility] SouthGavmvwdMXCYCHALWE8949-97-36 17:49:00 Test Item Value Reference Range Interpretation Comments INR (test code = INR) 1.13 1 0.85-1.17 [facility] CenterBvsxrntNBPJOTVCOW1774-07-80 17:49:00 Test Item Value Reference Range Interpretation Comments Thrombin Time (test code = Thrombin 19.8 s 15.0-21.2 Time) [facility] ClubBtidlynEJEXSKDLUO1737-31-37 17:49:00 Test Item Value Reference Range Interpretation Comments Fibrinogen Lvl (test code = Fibrinogen 582 230-510 Lvl) [facility] ClubWynzahtGLVNVKKWGO9713-28-09 17:49:00 Test Item Value Reference Range Interpretation Comments PTT (test code = PTT) 39.4 s 22.9-35.8 [place] 857660-06-01 17:49:00 Test Item Value Reference Range Interpretation Comments D-Dimer (test code = D-Dimer) 3.70 [place] [address]-06-01 17:49:00 Test Item Value Reference Range Interpretation Comments PB Smear Path Peripheral blood smear shows (test code = PB normocytic hypochromic Smear Path) anemia with anisopoikilocytsosis, a few elliptocytes, no increase in schistocytes, slight polychromasia, moderate thrombocytopenia. Impression: (1) no evidence of microangiopathic hemolysis, (2) RBC morphology is suggestive of iron deficiency anemia vs. anemia of chronic disease. CPT: 79721 [facility] SouthAzuwvbkTIYROPFNKA4951-76-24 17:49:00 Test Item Value Reference Range Interpretation Comments Haptoglobin (test code = Haptoglobin) 266 16-200 [facility] ClubVbigpzzIGFWHBSSBM0222-81-40 17:49:00 Test Item Value Reference Range Interpretation Comments PT (test code = PT) 14.6 s 12.0-14.7 [place] [address]-06-01 17:49:00 Test Item Value Reference Range Interpretation Comments INR (test code = INR) 1.13 1 0.85-1.17 [place] 857660-06-01 17:49:00 Test Item Value Reference Range Interpretation Comments Thrombin Time (test code = Thrombin 19.8 s 15.0-21.2 Time) [facility] ClubEamadekAEFIZSIMFN1337-87-17 17:49:00 Test Item Value Reference Range Interpretation Comments Fibrinogen Lvl (test code = Fibrinogen 582 230-510 Lvl) [facility] ClubFavafpuHYDLSCFNDE1732-09-79 17:49:00 Test Item Value Reference Range Interpretation Comments PTT (test code = PTT) 39.4 s 22.9-35.8 [place] 857660-06-01 17:49:00 Test Item Value Reference Range Interpretation Comments D-Dimer (test code = D-Dimer) 3.70 [facility] ClubKhqwmlxZUMSFYWKJR3986-57-86 17:49:00 Test Item Value Reference Range Interpretation Comments PB Smear Path Peripheral blood smear shows (test code = PB normocytic hypochromic Smear Path) anemia with anisopoikilocytsosis, a few elliptocytes, no increase in schistocytes, slight polychromasia, moderate thrombocytopenia. Impression: (1) no evidence of microangiopathic hemolysis, (2) RBC morphology is suggestive of iron deficiency anemia vs. anemia of chronic disease. CPT: 00412 [place] 346090-06-01 17:49:00 Test Item Value Reference Range Interpretation Comments Haptoglobin (test code = Haptoglobin) 266 16-200 [place] 185290-05-31 15:44:00 Test Item Value Reference Range Interpretation Comments Vanco Tr (test code = Vanco Tr) 19.4 [place] 185290-05-31 15:44:00 Test Item Value Reference Range Interpretation Comments Vanco Tr TND (test code = Vanco Tr 1030 1 TND) [place] 185290-05-31 15:44:00 Test Item Value Reference Range Interpretation Comments Vanco Tr (test code = Vanco Tr) 19.4 [place] 185290-05-31 15:44:00 Test Item Value Reference Range Interpretation Comments Vanco Tr TND (test code = Vanco Tr 1030 1 TND) [facility] ClubSegokxwXGBCPZBICA9959-61-50 11:59:00 Test Item Value Reference Range Interpretation Comments Sed Rate (test code = 25 See_Comment [Auto mated message] The Sed Rate) system which ge nerated this result transmit lawson reference range : <=15. The reference range was not used to interpr et this result as mercy l/abnormal. [place] [address]-05-31 11:59:00 Test Item Value Reference Range Interpretation Comments C-REACTIVE PROTEIN (test code = 225.0 C-REACTIVE PROTEIN) [place] [address]-05-31 11:59:00 Test Item Value Reference Range Interpretation Comments Sed Rate (test code = 25 See_Comment [Auto mated message] The Sed Rate) system which ge nerated this result transmit lawson reference range : <=15. The reference range was not used to interpr et this result as mercy l/abnormal. [facility] SouthRqaberaZAOPQZDYXF0651-84-18 11:59:00 Test Item Value Reference Range Interpretation Comments C-REACTIVE PROTEIN (test code = 225.0 C-REACTIVE PROTEIN) [place] [address]-05-31 05:27:00 Test Item Value Reference Range Interpretation Comments Bili Direct (test code 0.1 See_Comment [Aut omated message] The = Bili Direct) system which generated this result tra nsmitted reference range : <=0.3. The reference r pau was not used to int erpret this result as mercy l/abnormal. [place] [address]-05-31 05:27:00 Test Item Value Reference Range Interpretation Comments Bili Indirect (test 0.5 See_Comment [Automa lawson message] The code = Bili Indirect) system which generated this result tra nsmitted reference range : <=1.0. The reference r pau was not used to int erpret this result as normal/abnormal . [place] [address]-05-31 05:27:00 Test Item Value Reference Range Interpretation Comments Bili Direct (test code 0.1 See_Comment [Aut omated message] The = Bili Direct) system which generated this result tra nsmitted reference range : <=0.3. The reference r pau was not used to int erpret this result as mercy l/abnormal. [place] [address]-05-31 05:27:00 Test Item Value Reference Range Interpretation Comments Bili Indirect (test 0.5 See_Comment [Automa lawson message] The code = Bili Indirect) system which generated this result tra nsmitted reference range : <=1.0. The reference r pau was not used to int erpret this result as normal/abnormal . [place] [address]-05-30 21:59:00 Test Item Value Reference Range Interpretation Comments Lactic Acid Lvl (test code = Lactic 2.0 0.5-2.2 Acid Lvl) [place] 180700-05-30 21:59:00 Test Item Value Reference Range Interpretation Comments Lactic Acid Lvl (test code = Lactic 2.0 0.5-2.2 Acid Lvl) [place] [address]-05-30 17:17:00 Test Item Value Reference Range Interpretation Comments Lactic Acid Lvl (test code = Lactic 2.9 0.5-2.2 Acid Lvl) [facility] [id number] 17:17:00 Test Item Value Reference Range Interpretation Comments Lactic Acid Lvl (test code = Lactic 2.9 0.5-2.2 Acid Lvl) [facility] [id number] 13:39:00 Test Item Value Reference Range Interpretation Comments Lactic Acid Lvl (test code = Lactic 2.8 0.5-2.2 Acid Lvl) [facility] TDAUHRZSAR8543-05-40 13:39:00 Test Item Value Reference Range Interpretation Comments C difficile DNA (test Negative (03/22/20 8:39 code = C difficile DNA) AM) [facility]UfvbrroILWPBBJGJB3477-17-79 13:39:00 Test Item Value Reference Range Interpretation Comments Vanco Lvl (test code = Vanco Lvl) 13.[address] [facility] [id number] 13:39:00 Test Item Value Reference Range Interpretation Comments Lactic Acid Lvl (test code = Lactic 2.8 0.5-2.2 Acid Lvl) [facility] [id number] 13:39:00 Test Item Value Reference Range Interpretation Comments C difficile DNA (test Negative (03/22/20 8:39 code = C difficile DNA) AM) [facility] HospitalSbjrrbmACVDRFYZAU1792-88-52 13:39:00 Test Item Value Reference Range Interpretation Comments Vanco Lvl (test code = Vanco Lvl) 13.0 [facility] [id number] 09:45:00 Test Item Value Reference Range Interpretation Comments Troponin-I (test code 1.70 See_Comment [Auto mated message] The = Troponin-I) system which g enerated this result transmit lawson reference range : <=0.40. The reference r pau was not used to interpr et this result as mercy l/abnormal. [facility] SouthCARCentrifuge Systems [id number] 09:45:00 Test Item Value Reference Range Interpretation Comments Troponin-I (test code 1.70 See_Comment [Auto mated message] The = Troponin-I) system which g enerated this result transmit lawson reference range : <=0.40. The reference r pau was not used to interpr et this result as mercy l/abnormal. [facility] HospitalKrcxbrwPPXVZ5262-81-07 06:45:00 Test Item Value Reference Range Interpretation Comments Grp A Strep Scr (test Negative (03/22/20 1:45 code = Grp A Strep AM) Scr) [facility]andXosxqyoWJUUM7562-36-43 06:45:00 Test Item Value Reference Range Interpretation Comments Grp A Strep Scr (test Negative (03/22/20 1:45 code = Grp A Strep AM) Scr) [facility] SouthBACTERIAL - [id number] 05:56:00 Test Item Value Reference Range Interpretation Comments MRSA by PCR (test Negative (03/22/20 12:56 code = MRSA by PCR) AM) [facility] SouthBACTERIAL - [id number] 05:56:00 Test Item Value Reference Range Interpretation Comments Source Strep (test code Urine *NA*(03/22/20 = Source Strep) 12:56 AM) [facility] CenterCollegeWikisBACTERIAL - [id number] 05:56:00 Test Item Value Reference Range Interpretation Comments Strep pneumoniae Ag Negative (03/22/20 (test code = Strep 12:56 AM) pneumoniae Ag) [facility] CenterCollegeWikisCARDIAC [id number] 05:56:00 Test Item Value Reference Range Interpretation Comments Troponin-I (test code 2.35 See_Comment [Auto mated message] The = Troponin-I) system which g enerated this result transmit lawson reference range : <=0.40. The reference r pau was not used to interpr et this result as mercy l/abnormal. [facility] CenterCollegeWikisCARDIAC [id number] 05:56:00 Test Item Value Reference Range Interpretation Comments proBNP (test code = 9468 See_Comment [Automa lawson message] The proBNP) system which ge nerated this result tra nsmitted reference range : <=125. The reference r pau was not used to int erpret this result as mercy l/abnormal. [facility] CenterCollegeWikisCHEM [id number] 05:56:00 Test Item Value Reference Range Interpretation Comments Osmolality (test code = Osmolality) 332 280-300 [facility] CenterLsfpjtvWKVBYBYFFE8094-39-19 05:56:00 Test Item Value Reference Range Interpretation Comments Fibrinogen Lvl (test code = Fibrinogen 611 230-510 Lvl) [facility] SouthXeatsohIHBBLCOQIB8638-30-78 05:56:00 Test Item Value Reference Range Interpretation Comments D-Dimer (test code = D-Dimer) 6.22 [facility] SouthBxcmzjqKSXCCPOMPU3550-33-18 05:56:00 Test Item Value Reference Range Interpretation Comments HIV Ag/Ab 4th Gen Negative *NA*(03/22/20 (test code = HIV 12:56 AM) Ag/Ab 4th Gen) [facility] SouthCubbvgwRAJXRNYWSR6298-48-22 05:56:00 Test Item Value Reference Range Interpretation Comments Hep Bs Ab (test code = Hep Bs Ab) 3.2 [facility] SouthZzrorzfPIOICKOEBT3994-28-27 05:56:00 Test Item Value Reference Range Interpretation Comments Hep Bs Ag (test code Negative *NA*(03/22/20 = Hep Bs Ag) 12:56 AM) [facility] SouthSadvrrwJIDXJYSYUH7634-71-21 05:56:00 Test Item Value Reference Range Interpretation Comments Hep A IgM (test code Negative *NA*(03/22/20 = Hep A IgM) 12:56 AM) [facility] SouthLjpohamCUCSEJPUYX3819-72-19 05:56:00 Test Item Value Reference Range Interpretation Comments Hep C Ab (test code = Negative *NA*(03/22/20 Hep C Ab) 12:56 AM) [facility] SouthPrakfasHRSFVKZRHB0261-14-35 05:56:00 Test Item Value Reference Range Interpretation Comments Hep B Core IgM (test Negative *NA*(03/22/20 code = Hep B Core 12:56 AM) IgM) [facility] SouthSPECIAL EDEKEPSSY8918-81-09 05:56:00 Test Item Value Reference Range Interpretation Comments Hgb A1C (test code = Hgb A1C) 6.2 [facility] SouthBACTERIAL [id number] 05:56:00 Test Item Value Reference Range Interpretation Comments MRSA by PCR (test Negative (03/22/20 12:56 code = MRSA by PCR) AM) [facility] SouthBACTERIAL [id number] 05:56:00 Test Item Value Reference Range Interpretation Comments Source Strep (test code Urine *NA*(03/22/20 = Source Strep) 12:56 AM) [facility] SouthBACTERIAL - [id number] 05:56:00 Test Item Value Reference Range Interpretation Comments Strep pneumoniae Ag Negative (03/22/20 (test code = Strep 12:56 AM) pneumoniae Ag) [facility] CenterannCARDIAC [id number] 05:56:00 Test Item Value Reference Range Interpretation Comments Troponin-I (test code 2.35 See_Comment [Auto mated message] The = Troponin-I) system which g enerated this result transmit lawson reference range : <=0.40. The reference r pau was not used to interpr et this result as mercy l/abnormal. [facility] CenterCollegeWikisCARCentrifuge SystemsAC [id number] 05:56:00 Test Item Value Reference Range Interpretation Comments proBNP (test code = 9468 See_Comment [Automa lawson message] The proBNP) system which ge nerated this result tra nsmitted reference range : <=125. The reference r pau was not used to int erpret this result as mercy l/abnormal. [facility] [employer] MediaCHEM [id number] 05:56:00 Test Item Value Reference Range Interpretation Comments Osmolality (test code = Osmolality) 332 280-300 [facility] CenterZepsmvoMGFWOCBYLX7948-93-42 05:56:00 Test Item Value Reference Range Interpretation Comments Fibrinogen Lvl (test code = Fibrinogen 611 230-510 Lvl) [facility] CenterFcrmkxoFOKVVLXKUC5959-22-36 05:56:00 Test Item Value Reference Range Interpretation Comments D-Dimer (test code = D-Dimer) 6.22 [facility] CenterWazywkgUTXILBSRBP4027-83-40 05:56:00 Test Item Value Reference Range Interpretation Comments HIV Ag/Ab 4th Gen Negative *NA*(03/22/20 (test code = HIV 12:56 AM) Ag/Ab 4th Gen) [facility] CenterJumkosnXQNOJVWACV1156-87-30 05:56:00 Test Item Value Reference Range Interpretation Comments Hep Bs Ab (test code = Hep Bs Ab) 3.2 [facility] CenterHgjjpkgBUZOWDMCDB3128-08-86 05:56:00 Test Item Value Reference Range Interpretation Comments Hep Bs Ag (test code Negative *NA*(03/22/20 = Hep Bs Ag) 12:56 AM) [facility] CenterCnwlgymTKPRPQVQNJ6431-89-46 05:56:00 Test Item Value Reference Range Interpretation Comments Hep A IgM (test code Negative *NA*(03/22/20 = Hep A IgM) 12:56 AM) [facility] SouthPwajponYQTOFYGNZW9737-44-42 05:56:00 Test Item Value Reference Range Interpretation Comments Hep C Ab (test code = Negative *NA*(03/22/20 Hep C Ab) 12:56 AM) [facility] [id number] 05:56:00 Test Item Value Reference Range Interpretation Comments Hep B Core IgM (test Negative *NA*(03/22/20 code = Hep B Core 12:56 AM) IgM) [facility]SPECIAL [id number] 05:56:00 Test Item Value Reference Range Interpretation Comments Hgb A1C (test code = Hgb A1C) 6.2 [facility] SouthCARDIAC [id number] 03:45:00 Test Item Value Reference Range Interpretation Comments Troponin-I (test code 2.58 See_Comment [Auto mated message] The = Troponin-I) system which g enerated this result transmit lawson reference range : <=0.40. The reference r pau was not used to interpr et this result as mercy l/abnormal. [facility] SouthCodeRyte [id number] 03:45:00 Test Item Value Reference Range Interpretation Comments Lactic Acid WB (test code = Lactic Acid 5.0 0.5-2.2 WB) [facility] SouthCodeRyte [id number] 03:45:00 Test Item Value Reference Range Interpretation Comments Bili Direct (test code 0.3 See_Comment [Aut omated message] The = Bili Direct) system which generated this result tra nsmitted reference range : <=0.3. The reference r pau was not used to int erpret this result as mercy l/abnormal. [facility] CenterDataContact [id number] 03:45:00 Test Item Value Reference Range Interpretation Comments Bili Indirect (test 0.4 See_Comment [Automa lawson message] The code = Bili Indirect) system which generated this result tra nsmitted reference range : <=1.0. The reference r pau was not used to int erpret this result as normal/abnormal . [facility] [id number] 03:45:00 Test Item Value Reference Range Interpretation Comments Bands (test code = 23.0 See_Comment [Automat ed message] The Bands) system which ge nerated this result transmit lawson reference range : <=11.0. The reference r pau was not used to interpr et this result as mercy l/abnormal. [id number] 03:45:00 Test Item Value Reference Range Interpretation Comments Atypical Lymphs (test code = Atypical 1.0 Lymphs) [place] [id number] 03:45:00 Test Item Value Reference Range Interpretation Comments RBC Morph (test code = Normal (03/21/20 10:45 RBC Morph) PM) [place] [address]-05-30 03:45:00 Test Item Value Reference Range Interpretation Comments Large Plt (test code = Large Plt) [facility] [id number] 03:45:00 Test Item Value Reference Range Interpretation Comments Troponin-I (test code 2.58 See_Comment [Auto mated message] The = Troponin-I) system which g enerated this result transmit lawson reference range : <=0.40. The reference r pau was not used to interpr et this result as mercy l/abnormal. [facility] SouthCodeRyte [id number] 03:45:00 Test Item Value Reference Range Interpretation Comments Lactic Acid WB (test code = Lactic Acid 5.0 0.5-2.2 WB) [place] [id number] 03:45:00 Test Item Value Reference Range Interpretation Comments Bili Direct (test code 0.3 See_Comment [Aut omated message] The = Bili Direct) system which generated this result tra nsmitted reference range : <=0.3. The reference r pau was not used to int erpret this result as mercy l/abnormal. [facility] SouthCodeRyte [id number] 03:45:00 Test Item Value Reference Range Interpretation Comments Bili Indirect (test 0.4 See_Comment [Automa lawson message] The code = Bili Indirect) system which generated this result tra nsmitted reference range : <=1.0. The reference r pau was not used to int erpret this result as normal/abnormal . [place] [id number] 03:45:00 Test Item Value Reference Range Interpretation Comments Bands (test code = 23.0 See_Comment [Automat ed message] The Bands) system which ge nerated this result transmit lawson reference range : <=11.0. The reference r pau was not used to interpr et this result as mercy l/abnormal. [facility] [id number] 03:45:00 Test Item Value Reference Range Interpretation Comments Atypical Lymphs (test code = Atypical 1.0 Lymphs) [place] [id number] 03:45:00 Test Item Value Reference Range Interpretation Comments RBC Morph (test code = Normal (03/21/20 10:45 RBC Morph) PM) [place] [address]-05-30 03:45:00 Test Item Value Reference Range Interpretation Comments Large Plt (test code = Large Plt) Few [facility]2020-05-30 03:40:00 Test Item Value Reference Range Interpretation Comments Tube Num CSF (test code = Tube Num CSF) 1 1 [facility]2020-05-30 03:40:00 Test Item Value Reference Range Interpretation Comments Color CSF (test code = Color CSF) [place] [facility]2020-05-30 03:40:00 Test Item Value Reference Range Interpretation Comments Clarity CSF (test code Slight Blood = Clarity CSF) *ABN*(03/21/20 10:40 PM) [facility]2020-05-30 03:40:00 Test Item Value Reference Range Interpretation Comments Supernat CSF (test Hemolyzed *ABN*(03/21/20 code = Supernat CSF) 10:40 PM) [place] [id number] 03:40:00 Test Item Value Reference Range Interpretation Comments Nucleated Cells CSF 4 See_Comment [Automa lawson message] The (test code = Nucleated syste m which generated Cells CSF) this result tra nsmitted reference range : <=53. The reference r pau was not used to int erpret this result as normal/abnormal . [facility]2020-05-30 03:40:00 Test Item Value Reference Range Interpretation Comments RBC CSF (test code = 99368 See_Comment [Autom ated message] The RBC CSF) system which ge nerated this result transmit lawson reference range : <=03. The reference range was not used to interpr et this result as emrcy l/abnormal. [facility]2020-05-30 03:40:00 Test Item Value Reference Range Interpretation Comments Neutrophils CSF (test 3 See_Comment [Auto mated message] The code = Neutrophils CSF) syst em which generated this result tra nsmitted reference range : <=6. The reference r pau was not used to int erpret this result as normal/abnormal . [facility] [id number] 03:40:00 Test Item Value Reference Range Interpretation Comments Lymph CSF (test code = Lymph CSF) 75 40-80 [facility]2020-05-30 03:40:00 Test Item Value Reference Range Interpretation Comments Monocyte CSF (test code = Monocyte CSF) 22 15-45 [facility]2020-05-30 03:40:00 Test Item Value Reference Range Interpretation Comments Glucose CSF (test code = Glucose CSF) 157 45-80 [facility]2020-05-30 03:40:00 Test Item Value Reference Range Interpretation Comments Tube Num CSF (test code = Tube Num CSF) 1 1 [facility]2020-05-30 03:40:00 Test Item Value Reference Range Interpretation Comments Color CSF (test code = Color CSF) [place] [facility]2020-05-30 03:40:00 Test Item Value Reference Range Interpretation Comments Clarity CSF (test code Slight Blood = Clarity CSF) *ABN*(03/21/20 10:40 PM) [facility]2020-05-30 03:40:00 Test Item Value Reference Range Interpretation Comments Supernat CSF (test Hemolyzed *ABN*(03/21/20 code = Supernat CSF) 10:40 PM) [facility]2020-05-30 03:40:00 Test Item Value Reference Range Interpretation Comments Nucleated Cells CSF 4 See_Comment [Automa lawson message] The (test code = Nucleated syste m which generated Cells CSF) this result tra nsmitted reference range : <=53. The reference r pau was not used to int erpret this result as normal/abnormal . [facility] [id number] 03:40:00 Test Item Value Reference Range Interpretation Comments RBC CSF (test code = 05716 See_Comment [Autom ated message] The RBC CSF) system which ge nerated this result transmit lawson reference range : <=03. The reference range was not used to interpr et this result as mercy l/abnormal. [facility] [id number] 03:40:00 Test Item Value Reference Range Interpretation Comments Neutrophils CSF (test 3 See_Comment [Auto mated message] The code = Neutrophils CSF) syst em which generated this result tra nsmitted reference range : <=6. The reference r pau was not used to int erpret this result as normal/abnormal . [facility] [id number] 03:40:00 Test Item Value Reference Range Interpretation Comments Lymph CSF (test code = Lymph CSF) 75 40-80 [facility] [id number] 03:40:00 Test Item Value Reference Range Interpretation Comments Monocyte CSF (test code = Monocyte CSF) 22 15-45 [facility]2020-05-30 03:40:00 Test Item Value Reference Range Interpretation Comments Glucose CSF (test code = Glucose CSF) 157 45-80 [facility]2020-05-30 03:39:00 Test Item Value Reference Range Interpretation Comments Protein CSF (test code = Protein CSF) 100 15-45 [facility]2020-05-30 03:39:00 Test Item Value Reference Range Interpretation Comments Tube Num CSF (test code = Tube Num CSF) 4 1 [facility] [id number] 03:39:00 Test Item Value Reference Range Interpretation Comments Color CSF (test code = Color CSF) [place] [facility] [id number] 03:39:00 Test Item Value Reference Range Interpretation Comments Clarity CSF (test code Slight *ABN*(03/21/20 = Clarity CSF) 10:39 PM) [facility] [id number] 03:39:00 Test Item Value Reference Range Interpretation Comments Supernat CSF (test Colorless (03/21/20 code = Supernat CSF) 10:39 PM) [facility] [id number] 03:39:00 Test Item Value Reference Range Interpretation Comments Nucleated Cells CSF 2 See_Comment [Automa lawson message] The (test code = Nucleated syste m which generated Cells CSF) this result tra nsmitted reference range : <=53. The reference r pau was not used to int erpret this result as normal/abnormal . [facility] SouthGdd [id number] 03:39:00 Test Item Value Reference Range Interpretation Comments RBC CSF (test code = 3122 See_Comment [Autom ated message] The RBC CSF) system which ge nerated this result transmit lawson reference range : <=03. The reference range was not used to interpr et this result as mercy l/abnormal. [facility] [id number] 03:39:00 Test Item Value Reference Range Interpretation Comments Comment CSF (test Differential not code = Comment CSF) performed on WBC count of less than 5. [facility] [id number] 03:39:00 Test Item Value Reference Range Interpretation Comments Source HSV (test code = Cerebral Spinal Fluid Source HSV) [facility] [id number] 03:39:00 Test Item Value Reference Range Interpretation Comments HSV 1 by PCR (test Negative (03/21/20 10:39 code = HSV 1 by PCR) PM) [facility] [id number] 03:39:00 Test Item Value Reference Range Interpretation Comments HSV 2 by PCR (test Negative (03/21/20 10:39 code = HSV 2 by PCR) PM) [facility] SouthGram Stain [id number] 03:39:00 Test Item Value Reference Range Interpretation Comments Gram Stain Report Gram Stain Performed By: (test code = Gram [facility] Stain Report) [facility] CSF w/Gram [id number] 03:39:00 Test Item Value Reference Range Interpretation Comments Culture: CSF w/Gram Stain (test No Growth code = Culture: CSF w/Gram Stain) [facility] [id number] 03:39:00 Test Item Value Reference Range Interpretation Comments Protein CSF (test code = Protein CSF) 100 15-45 [facility] [id number] 03:39:00 Test Item Value Reference Range Interpretation Comments Tube Num CSF (test code = Tube Num CSF) 4 1 [facility] SouthBODY [id number] 03:39:00 Test Item Value Reference Range Interpretation Comments Color CSF (test code = Color CSF) [place] [facility] [id number] 03:39:00 Test Item Value Reference Range Interpretation Comments Clarity CSF (test code Slight *ABN*(03/21/20 = Clarity CSF) 10:39 PM) [facility] [id number] 03:39:00 Test Item Value Reference Range Interpretation Comments Supernat CSF (test Colorless (03/21/20 code = Supernat CSF) 10:39 PM) [facility] [id number] 03:39:00 Test Item Value Reference Range Interpretation Comments Nucleated Cells CSF 2 See_Comment [Automa lawson message] The (test code = Nucleated syste m which generated Cells CSF) this result tra nsmitted reference range : <=53. The reference r pau was not used to int erpret this result as normal/abnormal . [facility] [id number] 03:39:00 Test Item Value Reference Range Interpretation Comments RBC CSF (test code = 3122 See_Comment [Autom ated message] The RBC CSF) system which ge nerated this result transmit lawson reference range : <=03. The reference range was not used to interpr et this result as mercy l/abnormal. [facility] [id number] 03:39:00 Test Item Value Reference Range Interpretation Comments Comment CSF (test Differential not code = Comment CSF) performed on WBC count of less than 5. [facility] [id number] 03:39:00 Test Item Value Reference Range Interpretation Comments Source HSV (test code = Cerebral Spinal Fluid Source HSV) [facility] [id number] 03:39:00 Test Item Value Reference Range Interpretation Comments HSV 1 by PCR (test Negative (03/21/20 10:39 code = HSV 1 by PCR) PM) [facility] [id number] 03:39:00 Test Item Value Reference Range Interpretation Comments HSV 2 by PCR (test Negative (03/21/20 10:39 code = HSV 2 by PCR) PM) [facility]ram Stain [id number] 03:39:00 Test Item Value Reference Range Interpretation Comments Gram Stain Report Gram Stain Performed By: (test code = Gram [facility] Stain Report) [facility] HospitalCulture: CSF w/Gram [id number] 03:39:00 Test Item Value Reference Range Interpretation Comments Culture: CSF w/Gram Stain (test No Growth code = Culture: CSF w/Gram Stain) [facility] [id number] 21:02:00 Test Item Value Reference Range Interpretation Comments Coronavirus (COVID-19) Not Detected (03/21/20 CHRISTIAN (test code = 4:02 PM) Coronavirus (COVID-19) CHRISTIAN) [facility] [id number] 21:02:00 Test Item Value Reference Range Interpretation Comments Coronavirus (COVID-19) Not Detected (03/21/20 CHRISTIAN (test code = 4:02 PM) Coronavirus (COVID-19) CHRISTIAN) [facility] CenterannCHEM [id number] 19:33:00 Test Item Value Reference Range Interpretation Comments Ammonia (test code = Ammonia) 48.0 [facility] CenterannDRUG [id number] 19:33:00 Test Item Value Reference Range Interpretation Comments U Amph Scr (test code Negative *NA*(03/21/20 = U Amph Scr) 2:33 PM) [facility] CenterannDRUG [id number] 19:33:00 Test Item Value Reference Range Interpretation Comments U Noemi Scr (test code Negative *NA*(03/21/20 = U Noemi Scr) 2:33 PM) [facility] CenterannDR[facility] [id number] 19:33:00 Test Item Value Reference Range Interpretation Comments U Benzodiaz Scr (test Negative *NA*(03/21/20 code = U Benzodiaz Scr) 2:33 PM) [facility]DR[facility] [id number] 19:33:00 Test Item Value Reference Range Interpretation Comments U Cannab Scr (test Negative *NA*(03/21/20 code = U Cannab Scr) 2:33 PM) [facility] CenterannDRUG [id number] 19:33:00 Test Item Value Reference Range Interpretation Comments U Cocaine Scr (test Negative *NA*(03/21/20 code = U Cocaine Scr) 2:33 PM) [facility] SouthDR[facility] [id number] 19:33:00 Test Item Value Reference Range Interpretation Comments U Opiate Scr (test Negative *NA*(03/21/20 code = U Opiate Scr) 2:33 PM) [facility]annDR[facility] [id number] 19:33:00 Test Item Value Reference Range Interpretation Comments U Phencyclidine Scr (test Negative code = U Phencyclidine *NA*(03/21/20 2:33 Scr) PM) [facility] CenterannDRUG [id number] 19:33:00 Test Item Value Reference Range Interpretation Comments UDS Note (test code = See Note *NA*(03/21/20 UDS Note) 2:33 PM) [facility] [id number] 19:33:00 Test Item Value Reference Range Interpretation Comments Acetaminoph Lvl (test code = no gt 10-20 Acetaminoph Lvl) [facility] [id number] 19:33:00 Test Item Value Reference Range Interpretation Comments Ethanol Lvl (test code = Ethanol Lvl) no gt [facility] [id number] 19:33:00 Test Item Value Reference Range Interpretation Comments Etoh (%) (test code = Etoh (%)) no gt [facility] [id number] 19:33:00 Test Item Value Reference Range Interpretation Comments Salicylate Lvl (test no gt See_Comment [Autom ated message] The code = Salicylate Lvl) syste m which generated this result tra nsmitted reference range : <=30.0. The reference r pau was not used to int erpret this result as normal/abnormal . [facility] [employer] [id number] 19:33:00 Test Item Value Reference Range Interpretation Comments Ammonia (test code = Ammonia) 48.0 [facility] [employer]DR[employer] [id number] 19:33:00 Test Item Value Reference Range Interpretation Comments U Amph Scr (test code Negative *NA*(03/21/20 = U Amph Scr) 2:33 PM) [facility] [employer]DR[employer] [id number] 19:33:00 Test Item Value Reference Range Interpretation Comments U Noemi Scr (test code Negative *NA*(03/21/20 = U Noemi Scr) 2:33 PM) [facility] [employer] [id number] 19:33:00 Test Item Value Reference Range Interpretation Comments U Benzodiaz Scr (test Negative *NA*(03/21/20 code = U Benzodiaz Scr) 2:33 PM) [facility] [employer] [id number] 19:33:00 Test Item Value Reference Range Interpretation Comments U Cannab Scr (test Negative *NA*(03/21/20 code = U Cannab Scr) 2:33 PM) [facility] Flogs.comannDRUG [id number] 19:33:00 Test Item Value Reference Range Interpretation Comments U Cocaine Scr (test Negative *NA*(03/21/20 code = U Cocaine Scr) 2:33 PM) [facility] [employer] [id number] 19:33:00 Test Item Value Reference Range Interpretation Comments U Opiate Scr (test Negative *NA*(03/21/20 code = U Opiate Scr) 2:33 PM) [facility] CenterannDR[facility] [id number] 19:33:00 Test Item Value Reference Range Interpretation Comments U Phencyclidine Scr (test Negative code = U Phencyclidine *NA*(03/21/20 2:33 Scr) PM) [facility] [id number] 19:33:00 Test Item Value Reference Range Interpretation Comments UDS Note (test code = See Note *NA*(03/21/20 UDS Note) 2:33 PM) [facility] [id number] 19:33:00 Test Item Value Reference Range Interpretation Comments Acetaminoph Lvl (test code = no gt 08-12 Acetaminoph Lvl) [facility] [id number] 19:33:00 Test Item Value Reference Range Interpretation Comments Ethanol Lvl (test code = Ethanol Lvl) no gt [facility] [id number] 19:33:00 Test Item Value Reference Range Interpretation Comments Etoh (%) (test code = Etoh (%)) no gt [facility] [id number] 19:33:00 Test Item Value Reference Range Interpretation Comments Salicylate Lvl (test no gt See_Comment [Autom ated message] The code = Salicylate Lvl) syste m which generated this result tra nsmitted reference range : <=30.0. The reference r pau was not used to int erpret this result as normal/abnormal . [facility] [employer] [id number] 17:49:00 Test Item Value Reference Range Interpretation Comments Lactic Acid WB (test code = Lactic Acid 3.0 0.5-2.2 WB) [facility] [employer] [id number] 17:49:00 Test Item Value Reference Range Interpretation Comments Lactic Acid WB (test code = Lactic Acid 3.0 0.5-2.2 WB) [facility] AND [id number] 16:26:00 Test Item Value Reference Range Interpretation Comments UA Color (test code = Natasha *ABN*(03/21/20 UA Color) 11:26 AM) [facility] Flogs.[facility]annR[facility] AND [id number] 16:26:00 Test Item Value Reference Range Interpretation Comments UA Turbidity (test code Slight *ABN*(03/21/20 = UA Turbidity) 11:26 AM) [facility] [id number] 16:26:00 Test Item Value Reference Range Interpretation Comments UA Spec Grav (test code = UA Spec 1.025 1 Grav) [facility] [id number] 16:26:00 Test Item Value Reference Range Interpretation Comments UA pH (test code = UA pH) 5.0 1 5.0-8.0 [facility] [id number] 16:26:00 Test Item Value Reference Range Interpretation Comments UA Ketones (test code = UA Negative mg/dL Ketones) [facility] [id number] 16:26:00 Test Item Value Reference Range Interpretation Comments UA Bili (test code = Negative *NA*(03/21/20 UA Bili) 11:26 AM) [facility] [id number] 16:26:00 Test Item Value Reference Range Interpretation Comments UA Blood (test code = Large *ABN*(03/21/20 UA Blood) 11:26 AM) [facility] [id number] 16:26:00 Test Item Value Reference Range Interpretation Comments UA Urobilinogen (test code = UA no gt 0.1-1.0 Urobilinogen) [facility] [id number] 16:26:00 Test Item Value Reference Range Interpretation Comments UA Nitrite (test code Negative (03/21/20 11:26 = UA Nitrite) AM) [facility] [id number] 16:26:00 Test Item Value Reference Range Interpretation Comments UA Leuk Est (test code Trace *ABN*(03/21/20 = UA Leuk Est) 11:26 AM) [facility] [id number] 16:26:00 Test Item Value Reference Range Interpretation Comments UA Sq Epi (test code = UA Sq Occasional /LPF Epi) [facility] [id number] 16:26:00 Test Item Value Reference Range Interpretation Comments UA WBC (test code = 40 See_Comment [Automa lawson message] The UA WBC) system which ge nerated this result transmit lawson reference range : <=5. The reference range was not used to interpr et this result as mercy l/abnormal. [facility] [id number] 16:26:00 Test Item Value Reference Range Interpretation Comments UA RBC (test code = 19 See_Comment [Automa lawson message] The UA RBC) system which ge nerated this result transmit lawson reference range : <=2. The reference range was not used to interpr et this result as mercy l/abnormal. [facility] [id number] 16:26:00 Test Item Value Reference Range Interpretation Comments UA Bacteria (test code = UA Few /HPF Bacteria) [facility] [id number] 16:26:00 Test Item Value Reference Range Interpretation Comments UA Mucus (test code = UA Mucus) Few /LPF [facility] [id number] 16:26:00 Test Item Value Reference Range Interpretation Comments UA Amorph Kya (test code = UA Few /HPF Amorph Kya) [facility] AND [id number] 16:26:00 Test Item Value Reference Range Interpretation Comments UA Protein (test code = UA Protein) no gt [facility] [id number] 16:26:00 Test Item Value Reference Range Interpretation Comments UA Glucose (test code = UA Glucose) 50mg/dl [facility]Culture: [id number] 16:26:00 Test Item Value Reference Range Interpretation Comments Culture: Urine (test 10,000 - 50,000 code = Culture: Urine) CFU/mL Skin Eleni [facility] [facility] AND [id number] 16:26:00 Test Item Value Reference Range Interpretation Comments UA Color (test code = Natasha *ABN*(03/21/20 UA Color) 11:26 AM) [facility] [id number] 16:26:00 Test Item Value Reference Range Interpretation Comments UA Turbidity (test code Slight *ABN*(03/21/20 = UA Turbidity) 11:26 AM) [facility] [id number] 16:26:00 Test Item Value Reference Range Interpretation Comments UA Spec Grav (test code = UA Spec 1.025 1 Grav) [facility] [id number] 16:26:00 Test Item Value Reference Range Interpretation Comments UA pH (test code = UA pH) 5.0 1 5.0-8.0 [facility] [id number] 16:26:00 Test Item Value Reference Range Interpretation Comments UA Ketones (test code = UA Negative mg/dL Ketones) [facility] [id number] 16:26:00 Test Item Value Reference Range Interpretation Comments UA Bili (test code = Negative *NA*(03/21/20 UA Bili) 11:26 AM) [facility] [id number] 16:26:00 Test Item Value Reference Range Interpretation Comments UA Blood (test code = Large *ABN*(03/21/20 UA Blood) 11:26 AM) [facility] [id number] 16:26:00 Test Item Value Reference Range Interpretation Comments UA Urobilinogen (test code = UA no gt 0.1-1.0 Urobilinogen) [facility] [id number] 16:26:00 Test Item Value Reference Range Interpretation Comments UA Nitrite (test code Negative (03/21/20 11:26 = UA Nitrite) AM) [facility] [id number] 16:26:00 Test Item Value Reference Range Interpretation Comments UA Leuk Est (test code Trace *ABN*(03/21/20 = UA Leuk Est) 11:26 AM) [facility] [id number] 16:26:00 Test Item Value Reference Range Interpretation Comments UA Sq Epi (test code = UA Sq Occasional /LPF Epi) [facility] [id number] 16:26:00 Test Item Value Reference Range Interpretation Comments UA WBC (test code = 40 See_Comment [Automa lawson message] The UA WBC) system which ge nerated this result transmit lawson reference range : <=5. The reference range was not used to interpr et this result as mercy l/abnormal. [facility] [id number] 16:26:00 Test Item Value Reference Range Interpretation Comments UA RBC (test code = 19 See_Comment [Automa lawson message] The UA RBC) system which ge nerated this result transmit lawson reference range : <=2. The reference range was not used to interpr et this result as mercy l/abnormal. [facility] [id number] 16:26:00 Test Item Value Reference Range Interpretation Comments UA Bacteria (test code = UA Few /HPF Bacteria) [facility] AND [id number] 16:26:00 Test Item Value Reference Range Interpretation Comments UA Mucus (test code = UA Mucus) Few /LPF [facility] AND [id number] 16:26:00 Test Item Value Reference Range Interpretation Comments UA Amorph Kya (test code = UA Few /HPF Amorph Kya) [facility] AND [id number] 16:26:00 Test Item Value Reference Range Interpretation Comments UA Protein (test code = UA Protein) no gt [facility] AND [id number] 16:26:00 Test Item Value Reference Range Interpretation Comments UA Glucose (test code = UA Glucose) 50mg/dl [facility] [id number] 16:26:00 Test Item Value Reference Range Interpretation Comments Culture: Urine (test 10,000 - 50,000 CFU/mL code = Culture: Urine) Skin [id number] 16:22:00 Test Item Value Reference Range Interpretation Comments Coronavirus (COVID-19) Not Detected (03/21/20 CHRISTIAN (test code = 11:22 AM) Coronavirus (COVID-19) CHRISTIAN) [id number] 16:22:00 Test Item Value Reference Range Interpretation Comments Coronavirus (COVID-19) Not Detected (03/21/20 CHRISTIAN (test code = 11:22 AM) Coronavirus (COVID-19) CHRISTIAN) [id number] 16:06:00 Test Item Value Reference Range Interpretation Comments PT (test code = PT) 16.8 s 12.0-14.7 [facility] [id number] 16:06:00 Test Item Value Reference Range Interpretation Comments INR (test code = INR) 1.35 1 0.85-1.17 [facility] [id number] 16:06:00 Test Item Value Reference Range Interpretation Comments PTT (test code = PTT) 41.6 s 22.9-35.8 [facility] [id number] 16:06:00 Test Item Value Reference Range Interpretation Comments PT (test code = PT) 16.8 s 12.0-14.7 [facility] [id number] 16:06:00 Test Item Value Reference Range Interpretation Comments INR (test code = INR) 1.35 1 0.85-1.17 [facility] [id number] 16:06:00 Test Item Value Reference Range Interpretation Comments PTT (test code = PTT) 41.6 s 22.9-35.8 [facility] [id number] 15:09:00 Test Item Value Reference Range Interpretation Comments Bands (test code = 20.0 See_Comment [Automat ed message] The Bands) system which ge nerated this result transmit lawson reference range : <=11.0. The reference r pau was not used to interpr et this result as mercy l/abnormal. [facility] [id number] 15:09:00 Test Item Value Reference Range Interpretation Comments Myelocytes (test code = Myelocytes) 2.0 [facility] [id number] 15:09:00 Test Item Value Reference Range Interpretation Comments Atypical Lymphs (test code = Atypical 0.0 Lymphs) [facility] [id number] 15:09:00 Test Item Value Reference Range Interpretation Comments RBC Morph (test code = Normal (03/21/20 10:09 RBC Morph) AM) [facility] [id number] 15:09:00 Test Item Value Reference Range Interpretation Comments Large Plt (test code = Large Plt) Slight [facility] [id number] 15:09:00 Test Item Value Reference Range Interpretation Comments Bands (test code = 20.0 See_Comment [Automat ed message] The Bands) system which ge nerated this result transmit lawson reference range : <=11.0. The reference r pau was not used to interpr et this result as mercy l/abnormal. [facility] [id number] 15:09:00 Test Item Value Reference Range Interpretation Comments Myelocytes (test code = Myelocytes) 2.0 [facility] [id number] 15:09:00 Test Item Value Reference Range Interpretation Comments Atypical Lymphs (test code = Atypical 0.0 Lymphs) [facility] [id number] 15:09:00 Test Item Value Reference Range Interpretation Comments RBC Morph (test code = Normal (03/21/20 10:09 RBC Morph) AM) [facility] [id number] 15:09:00 Test Item Value Reference Range Interpretation Comments Large Plt (test code = Large Plt) [facility] Roberto Carlos
[2022-06-26] MEDS ORDERED: FENTANYL CITR 100 MCG/2 ML ONE (09:06)
[2022-06-26] MEDS ORDERED: NA CHLORIDE 0.9% 1,000 ML ONE (09:06)
[2022-06-26 09:13] LABS: Urine Blood 3+ (Negative); Urine Glucose 1+ (Negative); Urine Protein 2+ (Negative); Urine Specific Gravity >=1.030 (1.005-1.030)
[2022-06-26 09:21] LABS: Hematocrit 45.5 % (39.6-49.0); Lymphocytes % 7.1 % (15.3-44.8); MCV 90.3 fL (80-100); MPV 8.6 fL (7.6-11.3); RBC Red Blood Cell Count 5.04 M/uL (4.33-5.43)
[2022-06-26 09:34] LABS: Albumin 3.9 g/dL (3.4-5.0); Bilirubin Direct 0.3 mg/dL (0-0.2); Potassium 3.8 mmol/L (3.5-5.1); Protein, Total 7.8 g/dL (6.4-8.2)
[2022-06-26 09:41] LABS: Urine Mucus Slight /HPF (None Seen); Urine RBC >50 /HPF (None Seen)
[2022-06-26] MEDS ORDERED: CEFTRIAXONE 1000 MG/VIAL ONE (09:51)
[2022-06-26] MEDS ORDERED: FAMOTIDINE 20 MG/2 ML VIAL IV ONE (09:51)
[2022-06-26] MEDS ORDERED: MORPHINE 2 MG/ML SYR ONE (09:51)
[2022-06-26] MEDS ORDERED: ONDANSETRON 4 MG/2 ML VIAL ONE (09:51)
--- NOTE | 2022-06-26 10:09 | RAD REPORT ---
EXAM DESCRIPTION: CTAbdomen Pelvis Wo Contrast - 06/26/2022 9:57 am CLINICAL HISTORY: abd pain COMPARISON: No comparisons TECHNIQUE: CT of the abdomen and pelvis was performed. All CT scans are performed using dose optimization technique as appropriate and may include automated exposure control or mA/KV adjustment according to patient size. FINDINGS: Lower chest: No acute abnormality. Liver: Hepatic steatosis. Biliary: No biliary ductal dilatation. Stomach: No significant focal abnormality. Duodenum: No significant focal abnormality. Pancreas: No significant abnormality. Spleen: No significant abnormality. Adrenal: No suspicious lesions. Kidney/ureter: Moderate to severe right-sided hydroureteronephrosis secondary to a 5 mm stone in the right distal ureter. Additional bilateral renal calculi noted. The largest stone in the right kidney measures 10 millimeters. Retroperitoneum: No retroperitoneal adenopathy. Vascular: No aneurysm. Bowel: No significant focal abnormality. Peritoneum: No ascites or free air. Bladder: Grossly unremarkable. Reproductive: No adnexal masses. Bones: No acute fracture. Multilevel degenerative changes are present in the spine. Other: n/a IMPRESSION: Moderate to severe right-sided hydroureteronephrosis secondary to a 5 mm stone in the ri ght distal ureter.
--- NOTE | 2022-06-26 10:48 | EDPHYS ---
Physician Documentation [facility] Name: Louis Torres Age: 62 yrs Sex: Male : 1960 Arrival Date: 06/26/2022 Time: 08:19 Bed 7 Private MD: Daniela Dan ED Physician Garcia Chaudhari HPI: 06/26 09:13 This 62 yrs old Male presents to ER via Ambulatory with complaints of Abdominal Pain, snw Low Back Pain. 09:13 The patient presents with abdominal pain right lower quadrant, in the left lower snw quadrant. Onset: The symptoms/episode began/occurred suddenly, today, and became persistent. The symptoms do not radiate. Associated signs and symptoms: Pertinent positives: constant discomfort, "feels like a kidney stone". The symptoms are described as constant. Severity of pain: At its worst the pain was moderate. The patient has experienced a previous episode. The patient has been recently seen by a physician: with different complaint(s), the patient was seen for Prostate biopsy two weeks ago, and apparently was diagnosed with prostate ca. Historical: - Allergies: 08:25 PENICILLINS; iw - Home Meds: 08:25 losartan oral [Active]; iw - PMHx: 08:25 Hypertensive disorder; Diabetes mellitus; iw - PSHx: 08:25 Appendectomy; iw - Immunization history:: Client reports receiving the 2nd dose of the Covid vaccine. - Social history:: Smoking status: Patient denies any tobacco usage or history of. ROS: 09:15 Constitutional: Negative for fever, chills, and weight loss, Eyes: Negative for injury, snw pain, redness, and discharge, ENT: Negative for injury, pain, and discharge, Neck: Negative for injury, pain, and swelling, Cardiovascular: Negative for chest pain, palpitations, and edema, Respiratory: Negative for shortness of breath, cough, wheezing, and pleuritic chest pain, : Negative for injury, bleeding, discharge, and swelling, MS/Extremity: Negative for injury and deformity, Skin: Negative for injury, rash, and discoloration, Neuro: Negative for headache, weakness, numbness, tingling, and seizure, Psych: Negative for depression, anxiety, suicide ideation, homicidal ideation, and hallucinations. 09:15 Abdomen/GI: Positive for abdominal pain, of the right lower quadrant and left lower quadrant. 09:15 Back: Positive for flank pain, on the right. Exam: 09:12 Constitutional: This is a well developed, well nourished patient who is awake, alert, snw and in no acute distress. Head/Face: Normocephalic, atraumatic. Eyes: Pupils equal round and reactive to light, extra-ocular motions intact. Lids and lashes normal. Conjunctiva and sclera are non-icteric and not injected. Cornea within normal limits. Periorbital areas with no swelling, redness, or edema. ENT: Nares patent. No nasal discharge, no septal abnormalities noted. Tympanic membranes are normal and external auditory canals are clear. Oropharynx with no redness, swelling, or masses, exudates, or evidence of obstruction, uvula midline. Mucous membranes moist. Neck: Trachea midline, no thyromegaly or masses palpated, and no cervical lymphadenopathy. Supple, full range of motion without nuchal rigidity, or vertebral point tenderness. No Meningismus. Chest/axilla: Normal chest wall appearance and motion. Nontender with no deformity. No lesions are appreciated. Cardiovascular: Regular rate and rhythm with a normal S1 and S2. No gallops, murmurs, or rubs. Normal PMI, no JVD. No pulse deficits. sinus arrhythmia Respiratory: Lungs have equal breath sounds bilaterally, clear to auscultation and percussion. No rales, rhonchi or wheezes noted. No increased work of breathing, no retractions or nasal flaring. Back: No spinal tenderness. No costovertebral tenderness. Full range of motion. Skin: Warm, dry with normal turgor. Normal color with no rashes, no lesions, and no evidence of cellulitis. MS/ Extremity: Pulses equal, no cyanosis. Neurovascular intact. Full, normal range of motion. Neuro: Awake and alert, GCS 15, oriented to person, place, time, and situation. Cranial nerves II-XII grossly intact. Motor strength 5/5 in all extremities. Sensory grossly intact. Cerebellar exam normal. Normal gait. Psych: Awake, alert, with orientation to person, place and time. Behavior, mood, and affect are within normal limits. 09:12 Abdomen/GI: Inspection: abdomen appears normal, obese Bowel sounds: normal, Palpation: mild abdominal tenderness, moderate abdominal tenderness, in all quadrants. Vital Signs: 08:23 BP 136 / 84; Pulse 92; Resp 16; Temp 98.1; Pulse Ox 95% on R/A; Weight 130.63 kg; iw Height 6 ft. 2 in. (187.96 cm); Pain 8/10; 09:28 BP 141 / 79; Pulse 74; Resp 16; Pulse Ox 98% ; bp 10:39 BP 145 / 73; Pulse 85; Resp 16; Pulse Ox 98% ; bp 12:00 BP 126 / 75; Pulse 85; Resp 16; Pulse Ox 100% ; bp 13:11 BP 148 / 79; Pulse 78; Resp 18; Pulse Ox 99% on R/A; eh3 08:23 Body Mass Index 36.98 (130.63 kg, 187.96 cm) iw MDM: 08:39 Patient medically screened. snw 09:38 Data reviewed: vital signs, nurses notes. Data interpreted: Pulse oximetry: on room air snw is 98 %. Counseling: I had a detailed discussion with the patient and/or guardian regarding: the historical points, exam findings, and any diagnostic results supporting the discharge/admit diagnosis, the presence of at least one elevated blood pressure reading (>120/80) during this emergency department visit, lab results. ED course: Pt presents with abd pain similar to his hx of kidney stones. However, pt did have prostate biopsy 2 weeks ago. I have not rec'd urine sample as of yet but pt's WBC elevated and concern for urologic infection is high. Concern for sepsis because of possible source, WBC 13.5, bili 0.3, creatinine 1.97. Lactate, blood cultures discussed with pt's nurse to be obtained prior to administration of Rocephin. Pt allergic to PCN. 09:43 ED course: urine + for blood, no WBC. snw 12:24 ED course: try to initiate transfer to [facility] - no urology available. snw 13:05 Physician consultation: Dr. Keyes was called at 13:05, was contacted at 13:05, snw regarding regarding transfer, to [facility]. 13:12 Physician consultation: I had a detailed discussion with the patient and/or guardian snw regarding: The historical points, exam findings, and any diagnostic results supporting the discharge/admission diagnosis. Physician consultation: I originally spoke with Dr. Morrison (hospitalist) to admit patient here. I called Dr. Denney (urology) post seeing a urine culture and pending CT of abdomen and pelvis orders and his name. Dr. Denney is unavailable for the weekend and recommends patient to be transferred. Dr. Dupree at [facility] kindly accepts patient in transfer. Physician consultation: Rock Dupree MD was called at 1230, was contacted at 1230, regarding transfer to [facility]. Dr. Dupree would like copies of images, recent urine culture sensitivity, and to keep the patient n.p.o.. 06/26 08:49 Order name: CBC with Diff; Complete Time: 09:23 snw 06/26 08:49 Order name: CMP; Complete Time: 09:35 snw 06/26 08:49 Order name: Lipase; Complete Time: 09:35 snw 06/26 08:49 Order name: Urine Microscopic Only; Complete Time: 09:42 snw 06/26 08:49 Order name: LFT's; Complete Time: 09:35 snw 06/26 09:13 Order name: Urine Dipstick-Ancillary; Complete Time: 09:16 EDMS 06/26 09:40 Order name: Abdomen ; Complete Time: 10:12 EDMS 06/26 09:42 Order name: Lactate; Complete Time: 10:37 snw 06/26 09:42 Order name: Blood Culture Adult (2) snw 06/26 10:49 Order name: SARS RAPID; Complete Time: 11:29 bp 06/26 08:49 Order name: IV Saline Lock; Complete Time: 09:27 snw 06/26 08:49 Order name: Labs collected and sent; Complete Time: 09:27 snw 06/26 11:49 Order name: EKG; Complete Time: 11:50 snw 06/26 11:49 Order name: EKG - Nurse/Tech; Complete Time: 12:12 snw Administered Medications: 09:05 Drug: Pepcid (famotidine) 20 mg Route: IVP; Site: right antecubital; bp 09:55 Follow up: Response: No adverse reaction bp 09:05 Drug: NS 0.9% 1000 ml Route: IV; Rate: 75 ml/hr; Site: right antecubital; bp 13:59 Follow up: IV Status: Infusion continued upon transfer bp 09:05 Drug: fentaNYL (PF) 25 mcg Route: IVP; Site: right antecubital; bp 09:55 Follow up: Response: Pain is decreased bp 09:45 Drug: morphine 2 mg Route: IVP; Infused Over: 4 mins; Site: right antecubital; bp 09:55 Follow up: Response: Pain is decreased bp 09:45 Drug: Zofran (Ondansetron) 4 mg Route: IVP; Site: right antecubital; bp 09:55 Follow up: Response: No adverse reaction bp 10:33 Drug: Rocephin (cefTRIAXone) 1 grams Route: IV; Rate: calculated rate; Site: right bp antecubital; 12:26 Follow up: IV Status: Completed infusion; IV Intake: 50ml bp 12:45 Drug: Cipro (ciprofloxacin) 400 mg Volume: 200 ml; Route: IVPB; Infused Over: 60 mins; bp Site: right antecubital; 13:24 Follow up: IV Status: Completed infusion; IV Intake: 200ml bp 13:30 Drug: morphine 4 mg Route: IVP; Infused Over: 4 mins; Site: right antecubital; bp 13:58 Follow up: Response: No adverse reaction bp 13:30 Drug: Phenergan (promethazine) 25 mg Route: IM; Site: right deltoid; bp 13:58 Follow up: Response: No adverse reaction bp Disposition: 16:34 Co-signature as Attending Physician, Garcia Chaudhari MD I agree with the assessment and kdr plan of care. Disposition Summary: 06/26/22 13:18 Transfer Ordered Transfer Location: [facility] snw Reason: Higher level of care snw Condition: Stable(06/26/22 13:18) snw Problem: new(06/26/22 13:18) snw Symptoms: are unchanged(06/26/22 13:18) snw Accepting Physician: Dr. Keyes(06/26/22 14:00) bp Diagnosis - Hydronephrosis with renal and ureteral calculous obstruction(06/26/22 13:18) snw - Hydroureter(06/26/22 13:18) snw Forms: - Medication Reconciliation Form snw - SBAR form snw Signatures: Dispatcher [employer] EDMS Garcia Chaudhari MD MD kdr Nuzhat Jolly, BUILDING MAINTENANCE CUSTODIAN-C BUILDING MAINTENANCE CUSTODIAN-Csnw Pennie Frank, RN RN iw Jovanny Deal, RN RN bp Corrections: (The following items were deleted from the chart) 09:40 08:50 Abdomen Pelvis W Con+CT.RAD.BRZ ordered. EDMS EDMS 12:24 10:48 Observation snw snw 12:24 10:48 Leopoldo Roman snw snw 12:24 10:48 Telemetry/MedSurg (observation) snw snw 12:24 10:48 Stable snw snw 12:24 10:48 an acute exacerbation snw snw 12:24 10:48 have worsened snw snw 12:24 10:48 Standard snw snw 12:24 10:48 snw snw 12:24 10:48 Hydroureter snw snw 12:24 10:48 Hydronephrosis with renal and ureteral calculous obstruction snw snw 13:17 13:17 Observation snw snw 14:00 13:18 Dr. Keyes snw bp
--- NOTE | 2022-06-26 10:48 | ER ---
Nurse's Notes [facility] Name: Louis Torres Age: 62 yrs Sex: Male : 1960 Arrival Date: 06/26/2022 Time: 08:19 Bed 7 Private MD: Daniela Dan Diagnosis: Hydronephrosis with renal and ureteral calculous obstruction;Hydroureter Presentation: 06/26 08:23 Chief complaint: Patient states: woke up this morning with abd pain and right low back iw pain, thought it was gas so he took Gas-X and took a laxative , 2.5 weeks ago he had a prostate biopsy. Coronavirus screen: At this time, the client does not indicate any symptoms associated with coronavirus-19. Ebola Screen: Patient negative for fever greater than or equal to 101.5 degrees Fahrenheit, and additional compatible Ebola Virus Disease symptoms Patient denies exposure to infectious person. Patient denies travel to an Ebola-affected area in the 21 days before illness onset. No symptoms or risks identified at this time. Initial Sepsis Screen: Does the patient meet any 2 criteria? No. Patient's initial sepsis screen is negative. Does the patient have a suspected source of infection? No. Patient's initial sepsis screen is negative. Risk Assessment: Do you want to hurt yourself or someone else? Patient reports no desire to harm self or others. Onset of symptoms was June 26, 2022. 08:23 Method Of Arrival: Ambulatory iw 08:23 Acuity: CONOR 3 iw Triage Assessment: 08:32 General: Appears in no apparent distress. uncomfortable, Behavior is calm, cooperative, bp appropriate for age. Pain: Complains of pain in right low back and abdomen. EENT: No deficits noted. Neuro: No deficits noted. Cardiovascular: No deficits noted. Respiratory: No deficits noted. GI: Reports lower abdominal pain. : No signs and/or symptoms were reported regarding the genitourinary system. Derm: No deficits noted. Musculoskeletal: No deficits noted. Historical: - Allergies: 08:25 PENICILLINS; iw - Home Meds: 08:25 losartan oral [Active]; iw - PMHx: 08:25 Hypertensive disorder; Diabetes mellitus; iw - PSHx: 08:25 Appendectomy; iw - Immunization history:: Client reports receiving the 2nd dose of the Covid vaccine. - Social history:: Smoking status: Patient denies any tobacco usage or history of. Screenin:33 Abuse screen: Denies threats or abuse. Denies injuries from another. Nutritional bp screening: No deficits noted. Tuberculosis screening: No symptoms or risk factors identified. Fall Risk None identified. Assessment: 08:33 General: SEE TRIAGE NOTE. bp 09:29 Reassessment: No changes from previously documented assessment. Patient and/or family bp updated on plan of care and expected duration. Pain level reassessed. 10:39 Reassessment: PT RETURNED FROM CT. bp 12:00 Reassessment: HOSPITALIST AT B/S. bp 13:56 Reassessment: REPORT TO DENNY MERCADO FOR [facility]. bp 13:58 Reassessment: EMS AT [facility]. bp Vital Signs: 08:23 BP 136 / 84; Pulse 92; Resp 16; Temp 98.1; Pulse Ox 95% on R/A; Weight 130.63 kg; iw Height 6 ft. 2 in. (187.96 cm); Pain 8/10; 09:28 BP 141 / 79; Pulse 74; Resp 16; Pulse Ox 98% ; bp 10:39 BP 145 / 73; Pulse 85; Resp 16; Pulse Ox 98% ; bp 12:00 BP 126 / 75; Pulse 85; Resp 16; Pulse Ox 100% ; bp 13:11 BP 148 / 79; Pulse 78; Resp 18; Pulse Ox 99% on R/A; eh3 08:23 Body Mass Index 36.98 (130.63 kg, 187.96 cm) iw ED Course: 08:19 Patient arrived in ED. as 08:19 Daniela Dan MD is Private Physician. as 08:21 Nuzhat Jolly [facility]C [facility] snw 08:21 Garcia Chaudhari MD is Attending Physician. snw 08:25 Triage completed. iw 08:26 Arm band placed on. iw 08:29 Jovanny Deal, ROGELIO is Primary Nurse. bp 08:33 Patient has correct armband on for positive identification. Bed in low position. Call bp light in reach. Side rails up X2. 09:05 Inserted saline lock: 20 gauge in right antecubital area, using aseptic technique. bp Blood collected. 09:59 Abdomen In Process Unspecified. EDMS 10:47 Leopoldo Roman MD is Hospitalizing Provider. snw 12:24 initiated a transfer with Shabnam Galeas from the [facility]. eb 12:[address] Dupree the urologist environmental health and safety manager for [facility] with Nuzhat SUPERVIS[employer] for patient transfer consultation. 12:[address] Keyes the hospitalist environmental health and safety manager for [facility] with Nuzhat Product Safety Professional for patient transfer consultation. 13:08 administrative approval given by Shabnam Galeas Rn/ patient has been accepted to [facility] bed 1631/ Dr. Keyes has accepted the patient in transfer/ report to be called [phone]/. 13:56 No provider procedures requiring assistance completed. Patient transferred, IV remains bp in place. Administered Medications: 09:05 Drug: Pepcid (famotidine) 20 mg Route: IVP; Site: right antecubital; bp 09:55 Follow up: Response: No adverse reaction bp 09:05 Drug: NS 0.9% 1000 ml Route: IV; Rate: 75 ml/hr; Site: right antecubital; bp 13:59 Follow up: IV Status: Infusion continued upon transfer bp 09:05 Drug: fentaNYL (PF) 25 mcg Route: IVP; Site: right antecubital; bp 09:55 Follow up: Response: Pain is decreased bp 09:45 Drug: morphine 2 mg Route: IVP; Infused Over: 4 mins; Site: right antecubital; bp 09:55 Follow up: Response: Pain is decreased bp 09:45 Drug: Zofran (Ondansetron) 4 mg Route: IVP; Site: right antecubital; bp 09:55 Follow up: Response: No adverse reaction bp 10:33 Drug: Rocephin (cefTRIAXone) 1 grams Route: IV; Rate: calculated rate; Site: right bp antecubital; 12:26 Follow up: IV Status: Completed infusion; IV Intake: 50ml bp 12:45 Drug: Cipro (ciprofloxacin) 400 mg Volume: 200 ml; Route: IVPB; Infused Over: 60 mins; bp Site: right antecubital; 13:24 Follow up: IV Status: Completed infusion; IV Intake: 200ml bp 13:30 Drug: morphine 4 mg Route: IVP; Infused Over: 4 mins; Site: right antecubital; bp 13:58 Follow up: Response: No adverse reaction bp 13:30 Drug: Phenergan (promethazine) 25 mg Route: IM; Site: right deltoid; bp 13:58 Follow up: Response: No adverse reaction bp Medication: 08:33 VIS not applicable for this client. bp Intake: 12:26 IV: 50ml; Total: 50ml. bp 13:24 IV: 200ml; Total: 250ml. bp Outcome: 10:48 Decision to Hospitalize by Provider. snw 13:18 ER care complete, transfer ordered by MD. snw 13:56 Transferred by ground EMS to [facility], [facility], Transfer form completed. bp 13:56 Condition: stable 13:56 Instructed on the need for transfer. 14:00 Patient left the ED. bp Signatures: Dispatcher [employer] EDMS Nuzhat Jolly, TAKE OFF MAN-C TAKE OFF MAN-Csnw Sheridan Garcia Irene, RN RN iw Peltier, Brian, RN RN Sindi Oneill Erin, RN RN eh3
--- NOTE | 2022-06-26 11:27 | P.HP ---
Certification for Inpatient Patient admitted to: Observation With expected LOS: <2 Midnights Patient will require the following post-hospital care: None Practitioner: I am a practitioner with admitting privileges, knowledge of patient current condition, hospital course, and medical plan of care. Services: Services provided to patient in accordance with Admission requirements found in Title 42 Section 412.3 of the Code of Federal Regulations Patient History Date of Service: 06/26/22 Primary Care Provider: Dr. Dan Reason for admission: Hydonephrosis and hydroureter with calculus obstruction in distal ureter History of Present Illness: Mr. Torres is a 62yo male that had a needle biopsy of the prostate 2 weeks ago. He presented to [facility] ED today for sudden onset lower abdominal pain and right flank pain. Mr. Torres has had a kidney stone remotely and said the pain felt similar. On assessment in the ED, he was found to have a WBC of 13.5K/uL and his creatinine was elevated at 1.97mg/dl, bun of 33mg/dl, GFR 32. I have no prior creatinine for comparison. Pt gives a hx of collapse at home 2 years ago for unknown cause. Dx Rha bdomyolysis with ARF. Dialysis x 8 episodes. States renal function recovered. On imaging (without contrast), pt has moderate to severe hydroureteronephrosis resulting from a 5mm calculus at the distal ureter. Mr. Torres was told last week that his prostate biopsy was positive for cancer. He has an appointment with Dr. Ezequiel Maxwell at [facility] on . 06/29/22 for prostate cancer tx plan. Mr. Torres's PCP is Dr. Dan and he has seen Dr. Denney recently for UTI 05/13/22 with E. coli susceptible antibiotics NOT given. Mr. Torres is allergic to PCN. He is scheduled for a CT of his abd/pelvis on 07/08/[address] Denney. In the emergency room, Mr. Torres has been receiving IVF and has had blood cultures. Lactate < 2. Rocephin 1gm IVPB given. Pain decreased with fentanyl 25mg ivpb x 1 and then morphine 4mg x 1, zofran 4mg helped with nausea. HOME MEDS - Losartan ALLERGYS - PCN (rash) Home medications list reviewed: Yes - Past Medical/Surgical History Has patient received pneumonia vaccine in the past: No Diabetic: Yes -: Essential hypertension -: Diet controlled DM -: Rhabdo/ARF remotely -: Appendectomy (34 years ago) -: Umbilical hernia -: Knee surgery - Social History Smoking Status: Never smoker Alcohol use: No CD- Drugs: No Caffeine use: Yes Place of Residence: Home (Pt lives at home alone.) Physical Examination - Studies Laboratory Data (last 24 hrs) 06/26/22 09:05: Sodium 136, Potassium 3.8, BUN 33 H, Creatinine 1.97 H, Glucose 224 H, Total Bilirubin 1.0, AST 18, ALT 34, Alkaline Phosphatase 47, Lipase 289 06/26/22 09:05: WBC 13.50 H, Hgb 15.2, Hct 45.5, Plt Count 200 Assessment and Plan - Advance Directives Does patient have a Living Will: No Does patient have a Durable POA for Healthcare: No
[2022-06-26 11:28] LABS: SARS-CoV-2 Antigen Rapid Res Negative (Negative)
[2022-06-26] MEDS ORDERED: CIPROFLOXACIN 400mg IV 400 MG/200 ML BAG IV ONE (12:38)
[2022-06-26] MEDS ORDERED: PROMETHAZINE INJ 25 MG/ML AMP ONE (13:56)
[2022-06-26] MEDS ORDERED: MORPHINE 4 MG/ML SYR ONE (13:56)
[2022-06-26 14:06] VITALS: TEMP 98.1
[2022-06-26 14:16] VITALS: BP 148/79; O2SAT 99
--- NOTE | 2022-06-28 11:34 | EKG ---
Test Date: 2022-06-26 Test Time: 12:11:09 Cement Despatch Operator: PAT MEASUREMENT RESULTS: Intervals: Rate: 89 MA: 196 QRSD: 90 QT: 382 QTc: 464 [place]: P: 66 MA: 196 QRS: 13 T: 49 INTERPRETIVE STATEMENTS: Sinus rhythm with occasional premature ventricular complexes Otherwise normal ECG No previous ECG available for comparison Electronically Signed On 06-28-22 11:32:41 CDT by Pietro Ramos
== END 2022-06-26 14:00 | disposition short-term general hospital (02) ==
LOC: ER 08:16
DX: N13.2 Hydronephrosis with renal and ureteral calculous obstruction (principal); N13.4 Hydroureter; C61 Malignant neoplasm of prostate; E11.9 Type 2 diabetes mellitus without complications; I10 Essential (primary) hypertension; Z20.822 Contact with and (suspected) exposure to COVID-19; Z88.0 Allergy status to penicillin; Z87.442 Personal history of urinary calculi
CPT/HCPCS: 96365; 96367; 96361; 93005; 87040 ×2; 85025; 36415; 83605; 82248; 83690; 80053; 74176; 96375; 96372; 99285; 96366; 87811; J2550; J3010; J2270; J7030; J2405; J0744; 81003; 81015

== ENCOUNTER 2022-07-15 11:04 | Emergency (ER) | payer OTHER ==
--- OUTSIDE RECORDS SUMMARY | 2022-07-15 11:07 | XMS REPORT | Clinical Summary ---
:1960 Author Organization [facility] MD [facility] Address [address] [place] [address] Care Team Providers Name Role Phone Nicole Mcfarland MD Primary Care Provider Daniela Dan DO Unavailable Win Burnett MD Primary Care Provider Allergies Active Allergy Reactions Severity Noted Date Comments Penicillins Itching, Rash Low 07/05/2019 Medications Medication Sig Dispensed Refills Start Date End Date Status losartan (COZAAR) TAKE 1 TABLET 0 05/24/2022 Active 25 mg tablet HOLD IF FOR BLOOD PRESSURE LESS 120 ORALLY TWICE A DAY 90 DAYS tamsulosin Take by mouth. 0 06/27/2022 Act ligia (FLOMAX) 0.4 mg 24 hr capsule oxybutynin TAKE 1 TABLET BY 0 06/27/2022 A ctive (DITROPAN-XL) 10 MOUTH EVERY DAY mg 24 hr tablet Xiidra 5 % INSTILL ONE DROP 0 06/30/2022 A ctive ophthalmic INTO BOTH EYES solution TWICE A DAY lisinopril Take 1 tablet by 1 05/07/2019 07/12/2022 Discontinued (PRINIVIL,ZESTRIL mouth daily. ) 2.5 mg tablet clobetasol Apply topically 45 g 1 07/05/2019 07/12/2022 D iscontinued (TEMOVATE) 0.05% to affected creamIndications: area(s) twice Vesicular eczema daily. to hands, of hands and/or avoid face, feet armpit, groin Active Problems Problem Noted Date Adenocarcinoma of prostate 07/12/2022 Encounters Date Type Specialty Care Team Description 07/14/2022 Ancillary Procedure Radiology Win Burnett Cancer MD 07/14/2022 Ancillary Procedure Radiology Win Burnett Cancer MD 07/14/2022 Ancillary Procedure Radiology Win Burnett Cancer MD 07/14/2022 Telemedicine Radiation Oncology Win Burnett, Adenocar cinoma of prostate (Prima ry Dx) 07/12/2022 NPR Patient Access Win Burnett Services MD after 07/15/2021 Surgical History Surgery Date Site/Laterality Comments APPENDECTOMY 10/24/1987 - 10/23/1988 COLONOSCOPY 10/24/2018 - 10/23/2019 HERNIA REPAIR 10/24/2012 - 10/23/2013 SHOULDER SURGERY 10/24/2016 - 10/23/2017 Medical History Medical History Date Comments Hypertension 2016 2.5 mg Lisinopril Polyp of colon 2008 Diabetes mellitus 2016 diet controlled, no medication Renal stone 06/26/2022 5mm & 10mm stones Kidney failure 02/2020 Rhabdomyolsis Renal dialysis 03/2020 8 - 10 treatments Malignant neoplasm of prostate 06/07/2022 Prostate biopsy, dual image, [facility] Family History Medical History Relation Name Comments -Other cancer Brother Pradeep Throat -Colon cancer Father Ramon -Thoracic or Lung Father Ramon Colon cancer Father Ramon Lung cancer Father Ramon -Uterine cancer Mother Shanell Uterine cancer Mother Shanell -Breast cancer Sister Destiny Breast cancer Sister Destiny Cervical cancer Sister Destiny Relation Name Status Comments Brother Pradeep Father Ramon Mother Shanell Sister Destiny Social History Tobacco Use Types Packs/Day Years Used Date Never Smoker 0 0 Smokeless Tobacco: Never Used Alcohol Use Standard Drinks/Week Comments Never 0 (1 standard drink = 0.6 oz pure alcoho l) Sex Assigned at Date Recorded Not on file Job Start Date Occupation Industry Not on file Not on file Not on file Obstetrics History Last Filed Vital Signs Not on file Plan of Treatment Date Type Specialty Care Team Description 07/22/2022 Telemedicine Radiation Oncology Win Burnett MD [address], [place] [address] (Wo rk) Health Maintenance Due Date Last Done Comments COVID-19 Vaccination (3 - Booster for 06/24/2021 01/22/2021 , 01/01/2021 Pfizer series) Procedures Procedure Name Priority Date/Time Associated Comments Diagnosis OSI CT ABDOMEN AND Routine 07/07/2022 11:28 Cancer Resul ts for this PELVIS AM CDT procedure are i n the results section. OSI INTERVENTIONAL Routine 06/26/2022 11:28 Cancer Resul ts for this AM CDT procedure are i n the results section. OSI MRI PELVIS Routine 03/24/2022 11:28 Cancer Results f or this AM CDT procedure are i n the results section. after 07/15/[address] Abdomen and Pelvis (07/07/2022 11:28 AM CDT) Specimen (Source) Anatomical Location Collection Method / Collectio n Time Received Time / Laterality Volume Narrative Systemgenerated, Documentation - 022 11:28 AM CDT Study acquired at another institution. For comparison only. No MD Castellano originated interpretation requested or a vailable. Win Burnett MD IMG OUTSIDE IMAGE ORDERABLES OSI Interventional (06/26/2022 11:28 AM CDT) Specimen (Source) Anatomical Location Collection Method / Collectio n Time Received Time / Laterality Volume Narrative Systemgenerated, Documentation - 11:28 AM CDT Study acquired at another institution. For comparison only. No MD Castellano originated interpretation requested or a vailable. Win Burnett MD IMG OUTSIDE IMAGE ORDERABLES OSI MRI Pelvis (03/24/2022 11:28 AM CDT) Specimen (Source) Anatomical Location Collection Method / Collectio n Time Received Time / Laterality Volume Narrative Systemgenerated, Documentation - 022 11:28 AM CDT Study acquired at another institution. For comparison only. No MD Castellano originated interpretation requested or a vailable. Win Burnett MD IMG OUTSIDE IMAGE ORDERABLES after 07/15/2021 Insurance Payer Benefit Plan / Subscriber ID Effective Dates Phone Addre ss Type Group [employer] MANAGED [employer] O [id number] 2000-Present [id number] [place] [address] Care Teams Continuity Writer Relationship Specialty Start Date End Date Nicole Mcfarland MD PCP - General Dermatology 05/24/19 07/05/[address] [place] [address] [id number] Daniela Dan, DO PCP - External Follow Up [facility] 07/05/19 [address] [id number] Win Burnett MD PCP - General Radiation Oncology 07/06/[address] [place] [id number]
--- OUTSIDE RECORDS SUMMARY | 2022-07-15 11:15 | XMS REPORT | Continuity of Care Document ---
:1960 Author Organization [facility] t Address [address] [place] [address] Care Team Providers Name Role Phone DANIELA BATISTA Primary Care Physician Unavailable SYSTEM, PROVIDER NOT IN Attending Clinician Unavailable Daniela Batista Attending Clinician Unavailable MONICA LUIS Attending Clinician Unavailable Moi Diane MD Attending Clinician MOI DIANE Attending Clinician Unavailable Monica Luis MD Attending Clinician MONICA LUIS Attending Clinician Unavailable Jose Antonio Keyes MD Attending Clinician Basil Kitchen MD Attending Clinician Nav Larkin MD Attending Clinician JOSE ANTONIO KEEYS Attending Clinician Unavailable NAV LARKIN Attending Clinician Unavailable Rock Dupree MD Attending Clinician Jennifer Muse MD Attending Clinician Nikki Johns Attending Clinician MARTHA ADLER Attending Clinician Unavailable Rudi Padilla MD Attending Clinician 3, [facility] Tip Mr Attending Clinician Unavailable RUDI PADILLA Attending Clinician Unavailable SWATHI MENDES Attending Clinician Unavailable Swathi Mendes Attending Clinician NAV EDWARD Attending Clinician Unavailable BASIL KITCHEN Admitting Clinician Unavailable GATO LEMUS Admitting Clinician Unavailable Gato Lemus Admitting Clinician NAV EDWARD Admitting Clinician Unavailable Payers Payer Name Policy Type Policy Number Effective Date Expiration Date S treva AETNA HMO POS [id number] 2021 00:00:00 QPOS OPEN ACCESS [id number] 2022 00:00:00 HMO/POS/EPO/PPO - AETNA Problems Condition Condition Condition Status Onset Resolution Last Treating Co mments Source Name Details Category Date Date Treatment Clinician Date 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[facility] 07-12 ity of prostate prostate 00:00: [place] [id number] [facility] Rhabdomyol Rhabdomyol Disease Active [facility] ysis ysis 06-29 College 00:00: of 00 Medicin e Pyelonephr Pyelonephr Disease Active [facility] [place] [id number] [facility] PRICILA (acute PRICILA (acute Disease Active [facility] kidney kidney 06-27 [facility] injury) injury) 00:[facility]: [place] [address] Center Acute Acute Disease Active [facility] unilateral unilateral 06-26 [facility] kes obstructiv obstructiv 00:00: Me dical e uropathy e uropathy 00 Ce nter STROKE STROKE Diagnosis Active 2020-03-21 Me moria Active 03-21 15:32:00 l 03/21/2020 00:00: Esa cook [address] ACUTE ACUTE Diagnosis Active 2020-03-31 Mem oria RENAL RENAL 03-21 21:54:00 l FAILURE FAILURE 00:00: [place] DUE TO DUE TO 00 RHABDOMYOL RHABDOMYOL YSI YSI Active 0 [facility] MARY KAY MARY KAY Diagnosis Active 2020-03-24 Memoria BILLING BILLING 03-21 15:01:00 l Active 00:00: [place] 03/21/2020 [facility] Hypertensi Hypertensi Disease Active [facility] on [facility] Diabetes Diabetes Disease Active [facility] mellitus mellitus [facility] ACUTE ACUTE Diagnosis Active 2020-03-31 Mem oria KIDNEY KIDNEY 21:54:00 l FAILURE, FAILURE, Esa n UNSPECIFIE UNSPECIFIE D D Active [facility] Allergies, Adverse Reactions, Alerts Allergy Allergy Status Severity Reaction(s) Onset Inactive Treating Comm ents Source Name Type Date Date Clinician Penicill Propensi Active [facility] ins ty to 05-25 College adverse 00:00: of reaction 00 Medicin s to e drug Penicill Drug Active Anaphylaxis, [facility] Allergy Itching, 07-05 [facility] Other (See 00:00: Medica l Comments), 00 Center Rash PENICILL Allergy Active High Anaphylaxis [facility] INS -12 [facility] 00:[facility]: Medical 00 [place] PENICILL Drug Active Low Itching 2019-0 MD INS Class 9-12 Anderso 00:00: n 00 PENICILL Drug Active Low Itching 2019-0 MD INS Class 9-12 Anderso 00:00: n 00 PENICILL Drug Active Low Itching 2019-0 MD INS Class 9-12 Anderso 00:00: n 00 PENICILL Drug Active Low Itching 2019-0 MD INS Class 9-12 Anderso 00:00: n 00 PENICILL Drug Active Low Itching 2019-0 MD INS Class 9-12 Anderso 00:00: n 00 PENICILL Drug Active Low Itching 2019-0 MD INS Class 9-12 Anderso 00:00: n 00 PENICILL Drug Active Low Itching 2019-0 MD INS Class 9-12 Anderso 00:00: n 00 PENICILL Drug Active Low Itching 2019-0 MD INS Class 9-12 Anderso 00:00: n 00 PENICILL Drug Active Low Itching 2019-0 MD INS Class 9-12 Anderso 00:00: n 00 PENICILL Drug Active Low Itching 2019-0 MD INS Class 9-12 Anderso 00:00: n 00 PENICILL Drug Active Low Itching 2019-0 MD INS Class 9-12 Anderso 00:00: n 00 Penicill Propensi Active Rash 2019-0 Univer s ins ty to 9-12 ity of adverse 00:00: [place] reaction 00 MD [facility] PENICILL Drug Active Low Itching 2019-0 MD INS Class 9-12 Anderso 00:00: n 00 PENICILL Drug Active Low Itching 2019-0 MD INS Class 9-12 Anderso 00:00: n 00 PENICILL Drug Active Low Itching 2019-0 MD INS Class 9-12 Anderso 00:00: n 00 PENICILL Drug Active Low Itching 2019-0 MD INS Class 9-12 Anderso 00:00: n 00 PENICILL Drug Active Low Itching 2019-0 MD INS Class 9-12 Anderso 00:00: n 00 PENICILL Drug Active Low Itching 2019-0 MD INS Class 9-12 Anderso 00:00: n 00 Amoxicil Adverse Active Info Not Commo n misty Reaction Available Spiri t - [facility] penicill penicill Active Memori a ins ins l [place] Family History Family Member Diagnosis Comments Start Date Stop Date Source Natural father Cancer [facility] Natural father -Colon cancer [facility] Natural father -Thoracic or Lung [facility] Natural father Colon cancer [facility] Natural father Lung cancer [facility] Natural brother -Other cancer [facility] Natural mother -Uterine cancer [facility] Natural mother Uterine cancer [facility] s[facility] Natural sister -Breast cancer [facility]iver sity [facility] Natural sister Breast cancer Univers ity [facility] Natural sister Cervical cancer Unive rsity [facility] Social History Social Habit Start Date Stop Date Quantity Comments Source Alcohol intake 2022-06-29 2022-06-29 Ex-drinker [facility] 00:00:00 00:00:00 (finding) [facility] Tobacco use and 2022-06-26 2022-06-[address] Liana kes exposure 00:00:00 00:00:00 Medical Center Exposure to 2022-06-15 2022-06-25 Not sure [facility] SARS-CoV-2 00:00:00 10:53:00 of Medicine (event) Sex Assigned At [address] [facility] Liana kes 00:00:00 00:00:00 Medical Center Smoking Status Start Date Stop Date Source Never smoked tobacco [facility] Social History [facility] Medications Ordered Filled Start Stop Current Ordering Indication Dosage Frequency Signature Comments Components Source Medication Medication Date Date Medication? Clinician (SIG) Name Name Maylin 5 % Yes INSTILL Univ ers ophthalmic 06-30 ONE DROP ity o f solution 00:00[place] 00 E[place] TWICE [facility] oxybutynin Yes 10mg Take 10 mg [facility] (DITROPAN 06-29 by mouth Colleg e XL) 10 MG 13:14: daily. of CR tablet 51 Medicin e Tamsulosin Yes Take by [facility] HCl 06-29 mouth. College (FLOMAX) 13:14: of 0.4 MG CAPS 51 Medicin e phenazopyri Yes 200mg Take 200 [facility] aylor dine 06-29 mg by [place] (PYRIDIUM) 13:14: mouth 3 of 200 MG 51 times Medicin tablet daily as e needed for Pain. losartan Yes 25mg Q.5D Take [address] (COZAAR) 25 06-28 by mouth 2 Liana kes MG tablet 14:22: (two) Medical 02 times Center daily. cholecalcif Yes Take by [facility] St lela, 06-28 mouth. [facility] vitamin D3, 14:22: Medica l (VITAMIN D3 02 Center ORAL) tamsulosin Yes Take by [facility] ers (FLOMAX) 06-27 mouth. ity of 0.4 mg 24 00:00: [place] hr capsule 00 MD Nelson [facility] oxybutynin Yes TAKE 1 Unive rs (DITROPAN-X - TABLET BY ity of L) 10 mg 24 00:00: MOUTH [place] hr tablet 00 EVERY DAY MD Omar cook [facility] oxybutynin 0 2021- Yes 10mg QD Take [address] (DITROPAN-X 9-04 12-03 tablet (10 L ukes L) 10 MG 24 00:00: 23:59 mg total) Medical hr tablet 00 :00 by mouth Center daily for 90 days. tamsulosin 2021-2021- Yes .4mg QD Take [address] (FLOMAX) 06-27 capsule [facility] 0.4 mg Cap 00:00: 23:59 (0.4 mg Med ical 24 hr 00 :00 total) by Center capsule mouth daily for 90 days. ciprofloxac 2021- No 500mg Q.5D Take [address] in HCl 06-27 tablet [facility] (CIPRO) 500 00:00: 23:59 (500 mg Me dical MG tablet 00 :00 total) by Cente r mouth 2 (two) times daily for 7 days. ibuprofen 2021- No 600mg Take [address] [facility] [facility] (ADVIL,MOTR 06-27 tablet [facility] IN) 600 MG 00:00: 23:59 (600 mg Med ical tablet 00 :00 total) by Center mouth every 6 (six) hours as needed for Pain for up to 7 days. phenazopyri 2021- No 190mg Take [address] dine 06-27 tablets [facility] (PYRIDIUM) 00:00: 23:59 (190 mg Med ical 95 MG 00 :00 total) by Center tablet mouth 3 (three) times daily with meals for 3 days. ciprofloxac 2021-2021- No 500mg Q.5D Take [address] in HCl 06-27 tablet [facility] (CIPRO) 500 00:00: 00:00 (500 mg Me dical MG tablet 00 :00 total) by Cente r mouth 2 (two) times daily for 7 days. oxybutynin 2021-2021- No 10mg QD Take [address] (DITROPAN-X 06-27 tablet (10 L ukes L) 10 MG 24 00:00: 00:00 mg total) Medical hr tablet 00 :00 by mouth Center daily for 90 days. tamsulosin 2021-0 2021- No .4mg QD Take [address] (FLOMAX) 06-27 capsule [facility] 0.4 mg Cap 00:00: 00:00 (0.4 mg Med ical 24 hr 00 :00 total) by Center capsule mouth daily for 90 days. ibuprofen 600mg Take [address] [facility] (ADVIL,MOTR 06-27 tablet [facility] IN) 600 MG 00:00: 00:00 (600 mg Med ical tablet 00 :00 total) by Center mouth every 6 (six) hours as needed for Pain for up to 7 days. phenazopyri No 190mg Take [address] dine 06-27 tablets [facility] (PYRIDIUM) 00:00: 00:00 (190 mg Med ical 95 MG 00 :00 total) by Center tablet mouth 3 (three) times daily with meals for 3 days. gentamicin [id number] 160mg [facility] (GARAMYCIN) 06-07 College 40 mg/mL 19:45: 20:16 of injection 00 :00 Medicin 160 mg e gentamicin [id number] 160mg 160 mg, [facility] (GARAMYCIN) 06-07 Intr[facility] ollege 40 mg/mL 19:45: 20:16 lar, ONCE, of injection 00 :00 1 dose, On Medi [place] 160 mg Mon e 06/07/22 at 1445 ciprofloxac Yes TAKE 1 [facility] in (CIPRO) 8-04 TABLET BY Art ege 500 MG 00:00: MOUTH of tablet 00 TWICE A Medicin DAY FOR 5 e DAYS. START 1 DAY PRIOR TO BIOPSY IN [place] ciprofloxac Yes TAKE 1 [facility] in (CIPRO) 8-04 TABLET BY Art ege 500 MG 00:00: MOUTH of tablet 00 TWICE A Medicin DAY FOR 5 e DAYS. START 1 DAY PRIOR TO BIOPSY IN [place] losartan Yes TAKE 1 [facility] (COZAAR) 25 8- TABLET Colleg e MG tablet 00:00: HOLD IF of 00 FOR BLOOD Medicin PRESSURE e LESS 120 ORALLY TWICE A DAY 90 DAYS losartan Yes TAKE 1 [facility] (COZAAR) 25 8-01 TABLET Colleg e MG tablet 00:00: HOLD IF of 00 FOR BLOOD Medicin PRESSURE e LESS 120 ORALLY TWICE A DAY 90 DAYS losartan Yes TAKE 1 Univers (COZAAR) 25 8-01 TABLET ity of mg tablet 00:00: HOLD IF [place] 00 FOR BLOOD MD PRESSURE Anderso LESS 120 n ORALLY Cancer TWICE A Center DAY 90 DAYS Amlodipine Amlodipine 2020-0 Yes Na Batista 1 tablet Common Besylate Besylate 7-16 Spirit 00:00: - [facility] 00 [facility] Furosemide 2020-0 No 80 mg, 2 Mem oria 40 MG Oral 6-11 tab, l Tablet 14:00: Route: PO, Crissy nn [Lasix] 00 Drug form: TAB, Q--Sa , Dosing Weight 135.6, kg, Start date: 04/03/20 9:00:00 CDT, Duration: 30 day, Stop date: 05/01/20 9:00:00 CDT, 0 Furosemide 2020-0 No 80 mg, 2 Mem oria 40 MG Oral 6-11 tab, l Tablet 14:00: Route: PO, Crissy nn [Lasix] 00 Drug form: TAB, Q-Sa , Dosing Weight 135.6, kg, Start date: 04/03/20 9:00:00 CDT, Duration: 30 day, Stop date: 05/01/20 9:00:00 CDT, 0 Acetaminoph 2019-0 Yes 100.4 F, M emoria en 325 MG 6-10 0 l Oral Tablet 16:03: Refill(s) H ermann 00 amLODIPine 2020-0 Yes 5 mg = 1 Mem oria 5 mg oral 6-10 tab, PO, l tablet 16:03: Daily, 0 [place] 00 Refill(s) bisacodyl 2020-0 Yes 10 mg = 1 Mem oria 10 mg 6-10 supp, NH, l rectal 16:03: Daily, PRN Crissy nn suppository 00 Constipati on, 0 Refill(s) Docusate 2020-0 Yes 1 tab, PO, Mem oria Sodium 50 6-10 Daily, 0 l MG / 16:03: Refill(s) [place] sennosides, 00 NURSING HOME 8.6 MG Oral Tablet Furosemide 2020-0 Yes 80 mg = 2 Me moria 40 MG Oral 6-10 tab, PO, l Tablet 16:03: Q-Tu-Th-Sa Crissy nn [Lasix] 00 , 0 Refill(s) heparin 2020-0 Yes 7,500 unit Eder beau 6-10 = 1.5 mL, l 16:03: SUB-Q, [place] 00 Q8H, 0 Refill(s) Regular 2020-0 Yes 1 unit, Memoria Insulin, 6-10 SUB-Q, l Human 100 16:03: Sliding Crissy nn UNT/ML 00 Scale, PRN Injectable Blood Solution Glucose Results, 0 Refill(s) Nystatin 2020-0 Yes 1 appl, Memori a 100 UNT/MG 6-10 TOP, PRN, l Topical 16:03: PRN For [place] Powder 00 Fungal Prophylaxi s, 0 Refill(s) ocular 2020-0 Yes Each Memoria lubricant 6-10 Affected l 16:03: Eye, QID, [place] 00 PRN Dry Eyes, 0 Refill(s) Acetaminoph 2020-0 Yes 100.4 F, M emoria en 325 MG 6-10 0 l Oral Tablet 16:03: Refill(s) H ermann amLODIPine 2019-0 Yes 5 mg = 1 Mem oria 5 mg oral 6-10 tab, PO, l tablet 16:03: Daily, 0 [place] 00 Refill(s) bisacodyl 0 Yes 10 mg = 1 Mem oria 10 mg 6-10 supp, NH, l rectal 16:03: Daily, PRN Crissy nn suppository 00 Constipati on, 0 Refill(s) Docusate 2020-0 Yes 1 tab, PO, Mem oria Sodium 50 6-10 Daily, 0 l MG / 16:03: Refill(s) [place] sennosides, 00 NURSING HOME 8.6 MG Oral Tablet Furosemide 2020-0 Yes [...] TOP, PRN, l Topical 16:03: PRN For [place] Powder 00 Fungal Prophylaxi s, 0 Refill(s) ocular 2020-0 Yes Each Memoria lubricant 6-10 Affected l 16:03: Eye, QID, [place] 00 PRN Dry Eyes, 0 Refill(s) Fentanyl [...] 04-01 Route: l / Lidocaine 16:32: INTRADERM, [place] Hydrochlori 00 Dosing de 10 MG/ML Weight Injectable 135.6, kg, Solution ONCE, Start date: 04/01/20 11:32:00 CDT, Stop date: 04/01/20 11:32:00 CDT Epinephrine 2020-0 No 20 mL, Eder beau 0.01 MG/ML 04-01 Route: l / Lidocaine 16:32: INTRADERM, [place] Hydrochlori 00 Dosing de 10 MG/ML Weight Injectable 135.6, kg, Solution ONCE, Start date: 04/01/20 11:32:00 CDT, Stop date: 04/01/20 11:32:00 CDT Fentanyl 2020-0 No 75 Memoria 6-09 microgram, l 16:30: Route: IV, [place] 00 ONCE, Dosing Weight 135.6, kg, Start date: 04/01/20 11:30:00 CDT, Stop date: 04/01/20 11:30:00 CDT Fentanyl 2020-0 No 75 Memoria 6-09 microgram, l 16:30: Route: IV, [place] 00 ONCE, Dosing Weight 135.6, kg, Start date: 04/01/20 11:30:00 CDT, Stop date: 04/01/20 11:30:00 CDT Artificial 2019-0 No Notes: Memor ia Tears 6-08 (Same as: l 04:48: Thera-tear [place] 00 s) Artificial 2019-0 No Notes: Memor ia Tears 6-08 (Same as: l 04:48: Thera-tear [place] 00 s) Docusate 2019-0 No Notes: Memoria Sodium 50 6-04 (Same as l MG / 14:00: Senokot-S) [place] sennosides, 00 Equiv. to NURSING HOME 8.6 MG Yulissa-[place] Oral Tablet e. Docusate 2019-0 No Notes: Memoria Sodium 50 6-04 (Same as l MG / 14:00: Senokot-S) [place] sennosides, 00 Equiv. to NURSING HOME 8.6 MG Yulissa-[place] Oral Tablet e. Dulcolax 2019-0 No Notes: Memoria Laxative 6-04 (Same As: l 06:04: Dulcolax, [place] 00 Bisco-Lax) Maalox 2019-0 No Notes: Memoria Advanced 6-04 (aluminum l Regular 06:04: hydroxide- Herm yasmin Strength 00 magnesium SUSP hyd-simeth icone 200-200-20 mg/5ml 30 ml ud CARLOS) Tylenol 0 No Notes: Do Memor ia 6-04 not exceed l 06:04: 4 gm/day. [place] 00 (Same as: Tylenol) Zofran 2019-0 No Notes: Memoria 6-04 (Same as: l 06:04: Zofran) [place] 00 MEDICATION WASTE Product Size: 4 mg Product Wasted: ___ mg Dulcolax 2019-0 No Notes: Memoria Laxative 6-04 (Same As: l 06:04: Dulcolax, [place] 00 Bisco-Lax) Maalox 2019-0 No Notes: Memoria Advanced 6-04 (aluminum l Regular 06:04: hydroxide- Herm yasmin Strength 00 magnesium SUSP hyd-simeth icone 200-200-20 mg/5ml 30 ml ud CARLOS) Tylenol 2019-0 No Notes: Do Memor ia 6-04 not exceed l 06:04: 4 gm/day. [place] 00 (Same as: Tylenol) Zofran 2019-0 No Notes: Memoria 03-27 (Same as: l 06:04: Zofran) MEDICATION WASTE Product Size: 4 mg Product Wasted: ___ mg Furosemide 2019-0 No Notes: Memor ia 6- (Same as: l 19:00: Lasix) Furosemide 2019-0 No Notes: Memor ia 6- (Same as: l 19:00: Lasix) Lasix 2019-0 No Notes: Memoria 03-25 (Same as: l 17:02: Lasix) [place] 00 MEDICATION WASTE Product Size: 40 mg Product Wasted: _0__ mg Lasix 2019-0 No Notes: Memoria 03-25 (Same as: l 17:02: Lasix) MEDICATION WASTE Product Size: 40 mg Product Wasted: _0__ mg Azithromyci 2019-0 No Notes: Eder beau n 6- Take 1 l 16:10: hour [place] 00 before or 2 hours after meals. (Same As: Zithromax) Azithromyci 2019-0 No Notes: Eder beau n 6-02 Take 1 l 16:10: hour [place] 00 before or 2 hours after meals. (Same As: Zithromax) Calcium 2019-0 No Notes: Memoria Gluconate 6- WASTE: F/P l 12:00: - Sink; E - Municipal Trash Bin Calcium 2020-0 No Notes: Memoria Gluconate 6- WASTE: F/P l 12:00: - Sink; E - Municipal Trash Bin Calcium 2020-0 No Notes: Memoria Gluconate 6- WASTE: F/P l 21:55: - Sink; E - Municipal Trash Bin Calcium 2020-0 No Notes: Memoria Gluconate 6- WASTE: F/P l 21:55: - Sink; E - Municipal Trash Bin Lasix 2020-0 No Notes: Memori a 6- MEDICATION l 20:44: WASTE Product Size: 40 mg Product Wasted: ___ mg Lasix 2019-0 No Notes: Memori a 6- MEDICATION l 20:44: WASTE Product Size: 40 mg Product Wasted: ___ mg Amlodipine 2019- No Notes: Memor ia 6- (Same as: l 18:21: Norvasc) Amlodipine No Notes: Memor ia 6- (Same as: l 18:21: Norvasc) Ceftriaxone No Notes: Eder beau - (Same As: l 14:00: Rocephin). Use with 100 mL NS and infuse over 30 min MEDICATION WASTE Product Size: 1000 mg Product Wasted: ___ mg Ceftriaxone No Notes: Eder beau - (Same As: l 14:00: Rocephin). Use with 100 mL NS and infuse over 30 min MEDICATION WASTE Product Size: 1000 mg Product Wasted: ___ mg Calcium 2019- No Notes: Memoria Gluconate - WASTE: F/P l 13:38: - Sink; E - Municipal Trash Bin Calcium 2019-0 No Notes: Memoria Gluconate 6- WASTE: F/P l 13:38: - Sink; E - Municipal Trash Bin Ativan No Notes: Memoria 6- (Same as: l 01:36: Ativan) Ativan No Notes: Memoria 6- (Same as: l 01:36: Ativan) Isolyte S No Notes: Memori a PH 7.4 03-23 (Same as: l 1,000 mL 19:53: Isolyte S Herm yasmin 00 PH7.4, Normosol-R PH 7.4, Plasma-Lyt e A ) Isolyte S 2019-0 No Notes: Memori a PH 7.4 03-23 (Same as: l 1,000 mL 19:53: Isolyte S Herm yasmin 00 PH7.4, Normosol-R PH 7.4, Plasma-Lyt e A ) Vancomycin No 2001 mg: Me moria 03-23 infuse l 17:00: over 2.5 [place] 00 hours For adult patients only: Round to nearest 250 mg per Medical Staff approval MEDICATION WASTE Product Size: 1000 mg Product Wasted: ___ mg Vancomycin 2020-0 No 2001 mg: Me moria 03-23 infuse l 17:00: over 2.5 [place] 00 hours For adult patients only: Round to nearest 250 mg per Medical Staff approval MEDICATION WASTE Product Size: 1000 mg Product Wasted: ___ mg cefepime 2020-0 No Notes: Memoria 03-23 (Same as: l 16:00: Maxipime) [place] 00 MEDICATION WASTE Product Size: 2000 mg Product Wasted: ___ mg cefepime 2020-0 No Notes: Memoria 03-23 (Same as: l 16:00: Maxipime) MEDICATION WASTE Product Size: 2000 mg Product Wasted: ___ mg Calcium 2020-0 No 1,000 mL, Memor ia Chloride 03-23 1,000 l 0.0014 15:59: ml/hr, [place] MEQ/ML / 00 Infuse Potassium Over: 1 Chloride hr, Route: 0.004 IV, 1,000, MEQ/ML / Drug form: Sodium INJ, ONCE, Chloride Priority: 0.103 STAT, MEQ/ML / Dosing Sodium Weight Lactate 128.3 kg, 0.028 Start MEQ/ML date: Injectable 03/23/20 Solution 10:59:00 CDT, Stop date: 03/23/20 10:59:00 CDT, 0 Calcium 2020-0 No 1,000 mL, Memor ia Chloride 03-23 1,000 l 0.0014 15:59: ml/hr, Roberto Carlos [...] Chloride 5-31 1000 l 0.0014 01:00: ml/hr, [place] MEQ/ML / 00 Infuse Potassium Over: 1 Chloride hr, Route: 0.004 IV, 1,000, MEQ/ML / Drug form: Sodium INJ, ONCE, Chloride Dosing 0.103 Weight MEQ/ML / 128.3 kg, Sodium Start Lactate date: 0.028 03/22/20 MEQ/ML 20:00:00 Injectable CDT, Stop Solution date: 03/22/20 20:00:00 CDT, 0 Ampicillin 0 No Notes: Memor ia 03-23 (Same as: l : ) MEDICATION WASTE Product Size: 2000 mg Product Wasted: ___ mg Calcium No 1,000 mL, Memor ia Chloride 03-23 1000 l 0.0014 01:00: ml/hr, [place] MEQ/ML / 00 Infuse Potassium Over: 1 Chloride hr, Route: 0.004 IV, 1,000, MEQ/ML / Drug form: Sodium INJ, ONCE, Chloride Dosing 0.103 Weight MEQ/ML / 128.3 kg, Sodium Start Lactate date: 0.028 20 MEQ/ML 20:00:00 Injectable CDT, Stop Solution date: 03/22/20 20:00:00 CDT, 0 Ampicillin 0 No Notes: Memor ia 03-23 (Same as: l ) MEDICATION WASTE Product Size: 2000 mg Product Wasted: ___ mg Isolyte S No Notes: Memori a PH 7.4 5-30 (Same as: l 1,000 mL 23:32: Isolyte S Herm yasmin PH7.4, Normosol-R PH 7.4, Plasma-Lyt e A ) Isolyte S No Notes: Memori a PH 7.4 5-30 (Same as: l 1,000 mL 23:32: Isolyte S Herm yasmin 00 PH7.4, Normosol-R PH 7.4, Plasma-Lyt e A ) losartan No 25 mg = 1 M emoria mg oral 5-30 tab, PO, l tablet 22:01: Daily, 0 Refill(s) losartan 25 2020-0 No 25 mg = 1 M emoria mg oral 5-30 tab, PO, l tablet 22:01: Daily, 0 [place] 00 Refill(s) Calcium 2020-0 No Notes: Memoria Gluconate 5-30 WASTE: F/P l 19:09: - Sink; E Roberto Carlos - Municipal Trash Bin Calcium 2020-0 No Notes: Memoria Gluconate 5-30 WASTE: F/P l 19:09: - Sink; E [place] 00 - Municipal Trash Bin Calcium 2020-0 No 1 gm, Memoria Gluconate 5-30 Route: l 18:54: IVPB, PRN, [place] Dosing Weight 128.3, kg, PRN Abnormal Lab Result, Start date: 03/22/20 13:54:00 CDT, Duration: 30 day, Stop date: 04/21/20 13:53:00 CDT, FOR ICU USE ONLY Calcium 2020-0 No 500 mg, Memoria Carbonate 5-30 Route: PO, l 500 MG 18:54: PRN, [place] able 00 Dosing Tablet Weight 128.3, kg, PRN Abnormal Lab Result, FOR ICU USE ONLY, Start date: 03/22/20 13:54:00 CDT, Duration: 30 day, Stop date: 04/21/20 13:53:00 CDT Potassium 2020-0 No 20 mEq, Memor ia Chloride -30 Route: l 18:54: IVPB, PRN, [place] Dosing Weight 128.3, kg, PRN Abnormal Lab [...] Route: l 18:54: IVPB, PRN, [place] Dosing Weight 128.3, kg, PRN Abnormal Lab Result, Start date: 03/22/20 13:54:00 CDT, Duration: 30 day, Stop date: 04/21/20 13:53:00 CDT, FOR ICU USE ONLY potassium 2020-0 No 2 pkt, Memori a phosphate-s 5-30 Route: PO, l odium 18:54: Dosing [place] phosphate 00 Weight 250 mg-280 128.3, kg, mg-160 mg PRN, PRN oral powder Abnormal for Lab reconstitut Result, ion FOR ICU USE ONLY, Start date: 03/22/20 13:54:00 CDT, Duration: 30 day, Stop date: 04/21/20 13:53:00 CDT Magnesium 2020-0 No 2 gm, Memoria Sulfate 30 Route: l 18:54: IVPB, PRN, [place] 00 Dosing Weight 128.3, kg, PRN Abnormal Lab Result, Start date: 03/22/20 13:54:00 CDT, Duration: 30 day, Stop date: 04/21/20 13:53:00 CDT, FOR ICU USE ONLY Magnesium 2020-0 No 800 mg, Memor ia Oxide 30 Route: PO, l 18:54: PRN, [place] 00 Dosing Weight 128.3, kg, PRN Abnormal Lab Result, FOR ICU USE ONLY, Start date: 03/22/20 13:54:00 CDT, Duration: 30 day, Stop date: 04/21/20 13:53:00 CDT Calcium 2020-0 No 1 gm, Memoria Gluconate 30 Route: l 18:54: IVPB, PRN, [place] 00 Dosing Weight 128.3, kg, PRN Abnormal Lab Result, Start date: 03/22/20 13:54:00 CDT, Duration: 30 day, Stop date: 04/21/20 13:53:00 CDT, FOR ICU USE ONLY Calcium 2020-0 No 500 mg, Memoria Carbonate 530 Route: PO, l 500 MG 18:54: PRN, [place] Chewable 00 Dosing Tablet Weight 128.3, kg, PRN Abnormal Lab Result, FOR ICU USE ONLY, Start date: 03/22/20 13:54:00 CDT, Duration: 30 day, Stop date: 04/21/20 13:53:00 CDT Potassium 2020-0 No 20 mEq, Memor ia Chloride 5-30 Route: l 18:54: IVPB, PRN, Roberto [...] phosphate 30 Route: l 18:54: IVPB, PRN, [place] Dosing Weight 128.3, kg, PRN Abnormal Lab Result, Start date: 03/22/20 13:54:00 CDT, Duration: 30 day, Stop date: 04/21/20 13:53:00 CDT, FOR ICU USE ONLY potassium 2020-0 No 2 pkt, Memori a phosphate-s 530 Route: PO, l odium 18:54: Dosing [place] phosphate 00 Weight 250 mg-280 128.3, kg, mg-160 mg PRN, PRN oral powder Abnormal for Lab reconstitut Result, ion FOR ICU USE ONLY, Start date: 03/22/20 13:54:00 CDT, Duration: 30 day, Stop date: 04/21/20 13:53:00 CDT Magnesium 2020-0 No 2 gm, Memoria Sulfate 5-30 Route: l 18:54: IVPB, PRN, [place] 00 Dosing Weight 128.3, kg, PRN Abnormal [...] moria 5-30 infuse l 16:00: over 2.5 [place] 00 hours For adult patients only: Round to nearest 250 mg per Medical Staff approval MEDICATION WASTE Product Size: 1000 mg Product Wasted: ___ mg Vancomycin 2020-0 No 2001 mg: Me moria 5-30 infuse l 16:00: over 2.5 [place] 00 hours For adult patients only: Round to nearest 250 mg per Medical Staff approval MEDICATION WASTE Product Size: 1000 mg Product Wasted: ___ mg Saline 2020-0 No Notes: Memoria Flush 0.9% 5-30 (Same as: l 14:00: BD [place] 00 Posiflush) Saline 2020-0 No Notes: Memoria Flush 0.9% 5-30 (Same as: l 14:00: BD Posiflush) heparin 2020-0 No 5,000 Memoria 5-30 unit, l 13:00: Route: [place] 00 SUB-Q, Q8H, Dosing Weight 128.3, kg, Start date: 03/22/20 8:00:00 CDT, Duration: 30 day, Stop date: 04/21/20 0:00:00 CDT heparin 2020-0 No 5,000 Memoria 5-30 unit, l 13:00: Route: [place] 00 SUB-Q, Q8H, Dosing Weight 128.3, kg, Start date: 03/22/20 8:00:00 CDT, Duration: 30 day, Stop date: 04/21/20 0:00:00 CDT Ampicillin 2020-0 No Notes: Memor ia 5-30 (Same as: l 11:00: [place]) MEDICATION WASTE Product Size: 2000 mg Product Wasted: ___ mg Ampicillin 2020-0 No Notes: Memor ia 5-30 (Same as: l 11:00: [place]) MEDICATION WASTE Product Size: 2000 mg Product Wasted: ___ mg Calcium 2020-0 No Notes: Memoria Gluconate 5-30 WASTE: F/P l 07:11: - Sink; E [place] 00 - Municipal Trash Bin Calcium 2020-0 No Notes: Memoria Gluconate 03-22 WASTE: F/P l 07:11: - Sink; E [place] - Municipal Trash Bin Isolyte S 2019-0 No Notes: Memori a PH 7.4 5-30 (Same as: l 1,000 mL 07:07: Isolyte S Herm yasmin 00 PH7.4, Normosol-R PH 7.4, Plasma-Lyt e A ) Isolyte S 2019-0 No Notes: Memori a PH 7.4 5-30 (Same as: l 1,000 mL 07:07: Isolyte S Herm yasmin 00 PH7.4, Normosol-R PH 7.4, Plasma-Lyt e A ) Acyclovir 2019-0 No Notes: Memori a -30 Same as: l 07:00: Zovirax For adult patients only: Round to nearest 50 mg per Medical Staff approval MEDICATION WASTE Product Size: 500 mg Product Wasted: ___ mg Acyclovir 2019-0 No Notes: Memori a 03-22 Same as: l 07:00: Zovirax For adult patients only: Round to nearest 50 mg per Medical Staff approval MEDICATION WASTE Product Size: 500 mg Product Wasted: ___ mg Dextrose 2019- No 12.5 gm, Memor ia 50% Syringe 03-22 25 mL, l (D50W) 05:31: Route: IVP, Drug Form: INJ, Dosing Weight 128.3, kg, PRN, PRN Blood Glucose Results, Start date: 03/22/20 0:31:00 CDT, Duration: 30 day, Stop date: 04/21/20 0:30:00 CDT, 0 Glucagon 2019-0 No 1 mg, Memoria 03-22 Route: IM, l 05:31: Drug form: [place] 00 PDR/INJ, PRN, Dosing Weight 128.3, kg, PRN Blood Glucose Results, Start date: 03/22/20 0:31:00 CDT, Duration: 30 day, Stop date: 04/21/20 0:30:00 CDT, 0 Insulin 2019-0 No Notes: Memoria regular -30 (Same as: l 05:31: Humulin R) [place] 00 Roll in palms of hands gently; Do not shake vigorously . WASTE: F/P - Black; E - Municipal Trash Bin Stable for 31 days at room temperatur e Expires in days from ____Date lisinopril 2020-0 No 20 mg = 1 Me moria 20 mg oral 5-30 tab, PO, l tablet 05:31: Daily, 0 [place] 00 Refill(s) Dextrose 2020-0 No 12.5 gm, Memor ia 50% Syringe 30 25 mL, l (D50W) 05:31: Route: [place] 00 IVP, Drug Form: INJ, Dosing Weight 128.3, kg, PRN, PRN Blood Glucose Results, Start date: 03/22/20 0:31:00 CDT, Duration: 30 day, Stop date: 04/21/20 0:30:00 CDT, 0 Glucagon 2020-0 No 1 mg, Memoria 30 Route: IM, l 05:31: Drug form: [place] 00 PDR/INJ, PRN, Dosing Weight 128.3, kg, PRN Blood Glucose Results, Start date: 03/22/20 0:31:00 CDT, Duration: 30 day, Stop date: 04/21/20 0:30:00 CDT, 0 Insulin 2019-0 No Notes: Memoria regular 30 (Same as: l 05:31: Humulin R) Roll in palms of hands gently; Do not shake vigorously . WASTE: F/P - Black; E - Municipal Trash Bin Stable for 31 days at room temperatur e Expires in days from ____Date lisinopril 2020-0 No 20 mg = 1 Me moria 20 mg oral 5-30 tab, PO, l tablet 05:31: Daily, 0 [place] 00 Refill(s) Isolyte S 2020-0 No Notes: Memori a PH 7.4 5-30 (Same as: l 1,000 mL 05:08: Isolyte S Herm yasmin 00 PH7.4, Normosol-R PH 7.4, Plasma-Lyt e A ) Isolyte S 2020-0 No Notes: Memori a PH 7.4 5-30 (Same as: l 1,000 mL 05:08: Isolyte S Herm yasmin 00 PH7.4, Normosol-R PH 7.4, Plasma-Lyt e A ) Nystatin 2019- No Notes: Memoria 100 UNT/MG 5-30 (Same l Topical 04:45: as:Mycosta Herm yasmin Powder 00 tin, Nilstat) For external use only. Saline No Notes: Memoria Flush 0.9% 5-30 Same as: l 04:45: BD [place] 00 Posiflush Sterile Nystatin No Notes: Memoria 100 UNT/MG 5-30 (Same l Topical 04:45: as:Mycosta Herm yasmin Powder 00 tin, Nilstat) For external use only. 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 Ampicillin 0 No Notes: Memor ia 5-30 (Same as: l 04:00: [place]) [place] 00 MEDICATION WASTE Product Size: 2000 mg Product Wasted: ___ mg cefepime 2019-0 No Notes: Memoria 5-30 (Same as: l 04:00: Maxipime) [place] 00 MEDICATION WASTE Product Size: 2000 mg Product Wasted: ___ mg Vancomycin 2020-0 No 1,000 mg, Me moria 5-30 Route: l 04:00: IVPB, Drug [place] 00 form: INJ, [id number], Dosing Weight 118.182, kg, Start date: 03/21/20 23:00:00 CDT, Duration: 7 day, Stop date: 03/28/20 11:00:00 CDT, 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 Ampicillin 2020-0 No Notes: Memor ia 5-30 (Same as: l 04:00: [place]) MEDICATION WASTE Product Size: 2000 mg Product Wasted: ___ mg Ampicillin 2020-0 No 2 gm, Memori a 5-30 Route: l 01:45: IVPB, [place] ONCE, Dosing Weight 118.182, kg, Priority: STAT, Start date: 03/21/20 20:45:00 CDT, Stop date: 03/21/20 20:45:00 CDT Ampicillin 2020-0 No 2 gm, Memori a 5-30 Route: l 01:45: IVPB, [place] ONCE, Dosing Weight 118.182, kg, Priority: STAT, Start date: 03/21/20 20:45:00 CDT, Stop date: 03/21/20 20:45:00 CDT Ofirmev 2020-0 No or = 50 Memori a 5-30 kg, Start l 00:14: date: 03/21/20 19:14:00 CDT Ofirmev 2020-0 No or = 50 Memori a 5-30 kg, Start l 00:14: date: 03/21/20 19:14:00 CDT Isolyte S 2020-0 No 1,000 mL, Mem oria PH-7.4 03-21 Route: IV, l (Bolus) IV 21:35: ONCE, Esa n Priority: STAT, Dosing Weight 118.182 kg, Start date: 03/21/20 16:35:00 CDT, Stop date: 03/21/20 16:35:00 CDT Isolyte S 2020-0 No 1,000 mL, Mem oria PH-7.4 03-21 Route: IV, l (Bolus) IV 21:35: ONCE, Esa n 00 Priority: STAT, Dosing Weight 118.182 kg, Start date: 03/21/20 16:35:00 CDT, Stop date: 03/21/20 16:35:00 CDT Aspirin 300 No Notes: Eder beau MG Rectal 5-29 Refrigerat l Suppository 18:12: e. Esa n Aspirin 300 No Notes: Eder beau MG Rectal 5-29 Refrigerat l Suppository 18:12: e. Esa n Isolyte S No Notes: Memori a PH-7.4 5- (Same as: l (Bolus) IV 17:23: Isolyte S He rmann 00 PH7.4, Normosol-R PH 7.4, Plasma-Lyt e A ) Isolyte S No Notes: Memori a PH 7.4 -29 (Same as: l 1,000 mL 17:23: Isolyte S Herm yasmin 00 PH7.4, Normosol-R PH 7.4, Plasma-Lyt e A ) Isolyte S No Notes: Memori a PH-7.4 5- (Same as: l (Bolus) IV 17:23: Isolyte S He rmann 00 PH7.4, Normosol-R PH 7.4, Plasma-Lyt e A ) Isolyte S No Notes: Memori a PH 7.4 - (Same as: l 1,000 mL 17:23: Isolyte S Herm yasmin 00 PH7.4, Normosol-R PH 7.4, Plasma-Lyt e [...] PH 7.4, Plasma-Lyt e A ) Iohexol No 150 mL, Memoria 03-21 Route: l 15:47: IVP, Drug Form: SOLN, Dosing Weight 118.182, kg, ONCALL, STAT, Start date: 03/21/20 10:47:00 CDT, Duration: 1 doses or times, Dose = 2.2ml/kg, Max dose = 150ml -- "To be infused by Radiology Staff ONLY" Iohexol 2020-0 No 150 mL, Memoria 5-29 Route: l 15:47: IVP, Drug 00 Form: SOLN, Dosing Weight 118.182, kg, ONCALL, STAT, Start date: 03/21/20 10:47:00 CDT, Duration: 1 doses or times, Dose = 2.2ml/kg, Max dose = 150ml -- "To be infused by Radiology Staff ONLY" Ofirmev 2020-0 No Notes: Memoria -29 Infuse l 15:22: over 15 [place] 00 minutes Do not exceed 4gm/day of acetaminop hen MEDICATION WASTE Product Size: 1000 mg Product Wasted: ___ mg Ofirmev 2020-0 No Notes: Memoria 5-29 Infuse l 15:22: over 15 [place] 00 minutes Do not exceed 4gm/day of acetaminop hen MEDICATION WASTE Product Size: 1000 mg Product Wasted: ___ mg Iohexol 2020-0 No Notes: Memoria -29 (same l 15:19: as:Omnipaq [place] 00 ue 350). WASTE: F/P - Black; E - Municipal Trash Bin Iohexol 2020-0 No Notes: Memoria 5-29 (same l 15:19: as:Omnipaq [place] 00 ue 350). WASTE: F/P - Black; E - Municipal Trash Bin Vancomycin 2020-0 No 2000 mg: Me moria 5-29 infuse l 15:10: over 2.5 [place] 00 hours Vancomycin 2020-0 No 2000 mg: Me moria 5-29 infuse l 15:10: over 2.5 [place] 00 hours cefepime 2020-0 No Notes: Memoria 5-29 (Same as: l 15:09: Maxipime) [place] 00 MEDICATION WASTE Product Size: 2000 mg Product Wasted: ___ mg cefepime 2020-0 No Notes: Memoria 5-29 (Same as: l 15:09: Maxipime) [place] 00 MEDICATION WASTE Product Size: 2000 mg Product Wasted: ___ mg Iohexol 2020-0 No Notes: Memoria 5-29 (same l 15:08: as:Omnipaq [place] ue 350). WASTE: F/P - Black; E - Municipal Trash Bin Iohexol No Notes: Memoria 5-29 (same l 15:08: as:Omnipaq [place] 00 ue 350). WASTE: F/P - Black; E - Municipal Trash Bin Saline No Notes: Memoria Flush 0.9% 5-29 Same as: l 15:02: BD [place] Posiflush Sterile Saline No Notes: Memoria Flush 0.9% 5-29 Same as: l 15:02: BD [place] Posiflush Sterile Saline No Notes: Memoria Flush 0.9% 5-29 (Same as: l 15:00: BD [place] Posiflush) Saline No Notes: Memoria Flush 0.9% 5-29 (Same as: l 15:00: BD [place] Posiflush) Losartan Losartan Yes Na Batista 1 tablet Common Potassium Potassium 07-10 Spiri t 00:00: - [facility] 00 [facility] clobetasol Yes Vesicular Apply U nivers (TEMOVATE) 07-05 eczema of topically ity of 0.05% cream 00:00: hands to [place] 00 and/or feet affected MD area(s) Anderso twice n daily. to Cancer hands, Center avoid face, armpit, groin clobetasol 2021- No Vesicular Apply Univers (TEMOVATE) 07-05 09-19 eczema of topically ity of 0.05% cream 00:00: 00:00 [place] and/or feet affected MD area(s) Anderso twice n daily. to Cancer hands, Center avoid face, armpit, groin lisinopril Yes 1{tbl} Take 1 Uni vers (PRINIVIL,Z 7-15 tablet by ity of ESTRIL) 2.5 00:00: mouth [place] mg tablet 00 daily. MD Omar cook [facility] Center lisinopril 2021- No 1{tbl} Take 1 Un que (PRINIVIL,Z 7-15 09-19 tablet by it y of ESTRIL) 2.5 00:00: 00:00 [place] mg tablet 00 :00 daily. MD [facility] Yes Na Batista 1 Common ne ne applicatio [facility] Acetonide Acetonide n to - [facility] affected [facility] Immunizations Ordered Immunization Filled Immunization Date Status Commen ts Source Name Name Kandice Woodson 2019-09-28 Completed [facility] 00:00:00 [facility] Afluria single dose Afluria single dose 2019-07-10 Completed [facility] 00:00:00 [facility] TDAP > 7 TDAP > 7 2018-03-29 Completed [facility] Years-Adacel Years-Adacel 00:00:00 [facility] Pneumovax Pneumovax 2018-03-29 Completed [facility] 00:00:00 [facility] Vital Signs Vital Name Observation Time Observation Value Comments Source Systolic blood 2022-06-29 18:12:00 157 mm[Hg] [facility] Diastolic blood 2022-06-29 18:12:00 79 mm[Hg] [facility] Heart rate 2022-06-29 18:12:00 78 /min [facility] Body temperature 2022-06-29 18:12:00 36.61 Erin [facility] Respiratory rate 2022-06-29 18:12:00 18 /min [facility] Body height 2022-06-29 18:12:00 188 cm [facility] Body weight 2022-06-29 18:12:00 131.543 kg [facility] BMI 2022-06-29 18:12:00 37.23 kg/m2 [facility] Systolic blood 2022-06-07 20:03:00 160 mm[Hg] [facility] Diastolic blood 2022-06-07 20:03:00 98 mm[Hg] [facility] Medicine Heart rate 2022-06-07 20:03:00 96 /min [facility] Body height 2022-06-07 20:03:00 188 cm [facility] Body weight 2022-06-07 20:03:00 131.543 kg [facility] BMI 2022-06-07 20:03:00 37.23 kg/m2 [facility] Systolic blood 2022-06-27 11:38:00 152 mm[Hg] [facility] Diastolic blood 2022-06-27 11:38:00 81 mm[Hg] [facility] Heart rate 2022-06-27 11:38:00 87 /min [facility] Body temperature 2022-06-27 11:38:00 36 Erin [facility] Respiratory rate 2022-06-27 11:38:00 18 /min [facility] Oxygen saturation in 2022-06-27 11:38:00 97 /min [facility] Arterial blood by Medical Ce nter Pulse oximetry Temperature Oral (F) 2020-04-02 16:45:00 98.0 F [facility] [place] Heart Rate 2020-04-02 16:45:00 [facility] [place] Respitory Rate 2020-04-02 16:45:00 Memori al [place] Systolic (mm Hg) 2020-04-02 16:45:00 Eder rial [place] Diastolic (mm Hg) 2020-04-02 16:45:00 Mem orial [place] Temperature Oral (F) 2020-04-02 12:45:00 97.1 F [facility] [place] Temperature Oral (F) 2020-04-02 12:38:00 97.9 F [facility] [place] Respitory Rate 2020-04-02 12:38:00 Memori al [place] Systolic (mm Hg) 2020-04-02 12:38:00 Eder rial [place] Diastolic (mm Hg) 2020-04-02 12:38:00 Mem orial [place] Respitory Rate 2020-04-02 09:59:00 Memori al [place] Systolic (mm Hg) 2020-04-02 09:59:00 Eder rial [place] Diastolic (mm Hg) 2020-04-02 09:59:00 Mem orial [place] Heart Rate 2020-04-01 13:28:00 [facility] [place] Heart Rate 2020-04-01 09:29:00 [facility] [place] Height 2020-03-26 17:29:00 193.04 cm [facility] [place] Weight 2020-03-26 17:29:00 [facility] [place] BMI Calculated 2020-03-26 17:29:00 Memori al [place] Height 2020-03-22 04:52:00 187.96 cm [facility] [place] Weight 2020-03-22 04:52:00 [facility] [place] BMI Calculated 2020-03-22 04:52:00 Memori al [place] Height 2020-03-21 15:31:00 190.5 cm [facility] [place] BMI Calculated 2020-03-21 15:31:00 Memori al [place] Weight 2020-03-21 15:31:00 [facility] [place] Procedures Procedure Date / Time Performing Clinician Source Performed OSI CT ABDOMEN AND PELVIS 2022-07-07 16:28:00 [facility]/PELVIS WITH IV 2022-07-07 14:36:00 Monica Luis [facility] CONTRAST Center AMB REF TO RADIATION 2022-06-29 14:02:44 [facility] [employer] ONCOLOGY [facility] Medicin e POCT-GLUCOSE METER 2022-06-27 11:41:00 Nav Larkin [facility] POCT-GLUCOSE METER 2022-06-27 06:34:00 LupilloBasil [facility] VITAMIN D, 25-HYDROXY 2022-06-27 03:29:00 LupilloBasil [facility] HEMOGLOBIN A1C 2022-06-27 03:29:00 LupilloBasil [facility] CBC W/PLT COUNT & AUTO 2022-06-27 03:29:00 LupilloBasilif C [facility] DIFFERENTIAL Center BASIC METABOLIC PANEL (7) 2022-06-27 03:29:00 LupilloBasili f [facility] CBC W/PLT COUNT & AUTO 2022-06-27 03:29:00 LupilloBasil C [facility] CREATININE, RANDOM URINE 2022-06-27 03:22:00 LupilloBasil [facility] UREA NITROGEN, RANDOM 2022-06-27 03:22:00 Lupillo, [facility] URINE Center SODIUM, RANDOM URINE 2022-06-27 03:22:00 Lupillo, [facility] URINALYSIS WITH 2022-06-27 03:22:00 Lupillo [facility] MICROSCOPIC IF INDICATED Center URINALYSIS MICROSCOPIC 2022-06-27 03:22:00 [facility] PO[facility]-GLUCOSE METER 2022-06-27 00:15:00 Lupillo, [facility] POCT-GLUCOSE METER 2022-06-26 19:22:00 Lupillo, [facility] FL FLUORO NON-SPECIFIC UP 2022-06-26 19:00:00 Joon [facility] TO 1 HOUR Center FUNGUS CULTURE + SMEAR 2022-06-26 18:44:00 Joon [facility] SURGICALLY OBTAINED 2022-06-26 18:44:00 Joon [facility] CULTURE + GRAM STAIN Center ANAEROBIC CULTURE 2022-06-26 18:44:00 Joon [facility] CYSTOSCOPY, WITH URETERAL 2022-06-26 18:07:00 Joon [facility] STENT INSERTION [place] CYSTOSCOPY, WITH 2022-06-26 18:07:00 Joon [facility] RETROGRADE PYELOGRAM Center CBC W/PLT COUNT & AUTO 2022-06-26 16:38:00 Lupillo irma [facility] DIFFERENTIAL Center COMPREHENSIVE METABOLIC 2022-06-26 16:38:00 Lupillo [facility] PANEL Center PROTHROMBIN TIME/INR 2022-06-26 16:38:00 Lupillo [facility] CBC W/PLT COUNT & AUTO 2022-06-26 16:38:00 Lupillo, irma Barr [facility] DIFFERENTIAL Center OSI INTERVENTIONAL 2022-06-26 16:28:00 Moi Diane [facility] er Center EKG-SCANNED 2022-06-26 00:00:00 Provider, Anjum [facility] Medical Scanning Center US TRANSRECTAL W/NANETTE 2022-06-07 17:33:29 [facility] BIOPSY Medicine MR PELVIS WITH & WITHOUT 2022-03-24 18:06:00 Rudi Padilla [facility] IV CONTRAST Center OSI MRI PELVIS 2022-03-24 16:28:00 Lex Moi Haswell o f [facility] er Center Plan of Care Planned Activity Planned Date Details Comments Source Future Scheduled 2028-03-29 DTAP/TDAP/TD VACCINES ([address] [facility] Test 00:00:00 - Td or Tdap) [code = Medica l Center DTAP/TDAP/TD VACCINES (2 - Td or Tdap)] Future Scheduled 2028-03-29 DTAP/TDAP/TD VACCINES ([address] [facility] Test 00:00:00 - Td or Tdap) [code = Medica l Center DTAP/TDAP/TD VACCINES (2 - Td or Tdap)] Future Scheduled 2022-07-15 COVID-19 Vaccination (3 [facility] Test 08:21:36 - Booster for Pfizer [facility] series) [code = COVID-19 [facility] Center Vaccination (3 - Booster for Pfizer series)] Future Scheduled 2022-06-29 Screening for malignant [facility] Test 13:12:58 neoplasm of colon Medicine (procedure) [code = 445246342] Future Scheduled 2022-06-29 TETANUS SHOT (ADULT) [facility] Test 13:12:58 [code = TETANUS SHOT Medicin e (ADULT)] Future Scheduled 2022-06-29 BMI FOLLOW UP PLAN [code [facility] of Test 13:12:58 = BMI FOLLOW UP PLAN] Medici ne Future Scheduled 2022-06-29 Hepatitis C screening Ba [facility] Test 13:12:58 (procedure) [code = Medicine 134753605] Future Scheduled 2022-06-29 Human immunodeficiency B [facility] Test 13:12:58 virus screening Medicine (procedure) [code = 179684003] Future Scheduled 2022-06-29 ZOSTER VACCINE (1 of 2) [facility] Test 13:12:58 [code = ZOSTER VACCINE Medic ine (1 of 2)] Future Scheduled 2022-06-29 COVID-19 Vaccine (3 - Ba [facility] of Test 13:12:58 Booster for Pfizer Medicine series) [code = COVID-19 Vaccine (3 - Booster for Pfizer series)] Future Scheduled 2022-06-29 FLU VACCINE > 6 MONTHS B [facility] Test 13:12:58 [code = FLU VACCINE > 6 Medi cine MONTHS] Future Scheduled 2022-06-29 MEDICARE IPPE (WELCOME B [facility] Test 13:12:58 TO MEDICARE) [code = Medicin e MEDICARE IPPE (WELCOME TO MEDICARE)] Future Scheduled 2022-06-[address] [facility] Test 00:00:00 measurement (procedure) [facility] [code = 96104117] Future Scheduled 2022-06-24 INFLUENZA VACCINE (#1) [facility] 00:[facility]:00 [code = INFLUENZA Medical Ce nter VACCINE (#1)] Future Scheduled 2022-06-24 INFLUENZA VACCINE (#1) [facility] Test 00:00:00 [code = INFLUENZA Medical Ce nter VACCINE (#1)] Future Scheduled 2022-06-08 Screening for malignant [facility] of Test 02:13:50 neoplasm of colon Medicine (procedure) [code = 294126419] Future Scheduled 2022-06-08 BMI FOLLOW UP PLAN [code [facility] of Test 02:13:50 = BMI FOLLOW UP PLAN] Medici ne Future Scheduled 2022-06-08 Hepatitis C screening [facility] of Test 02:13:50 (procedure) [code = Medicine 121914119] Future Scheduled 2022-06-08 Human immunodeficiency B [facility] Test 02:13:50 virus screening Medicine (procedure) [code = 566561852] Future Scheduled 2022-06-08 ZOSTER VACCINE (1 of 2) [facility] Test 02:13:50 [code = ZOSTER VACCINE Medic ine (1 of 2)] Future Scheduled 2022-06-08 COVID-19 Vaccine (3 - Ba [facility] of Test 02:13:50 Booster for Pfizer Medicine series) [code = COVID-19 Vaccine (3 - Booster for Pfizer series)] Future Scheduled 2022-06-08 FLU VACCINE > 6 MONTHS B [facility] Test 02:13:50 [code = FLU VACCINE > 6 Medi cine MONTHS] Future Scheduled 2022-06-08 TETANUS SHOT (ADULT) [facility] Test 02:13:50 [code = TETANUS SHOT Medicin e (ADULT)] Future Scheduled 2022-06-07 US TRANSRECTAL W/NANETTE [facility] Test 14:30:15 BIOPSY [code = 93140] Medici ne Future Scheduled 2022-04-28 COVID-19 Vaccination Uni versity of Test 06:25:43 (#1) [code = COVID-19 [facility] Vaccination (#1)] Cancer Emelina ter Future Scheduled 2021-10-[address] [facility] Test 00:00:00 (12+) [code = DEPRESSION Med ical Center SCREENING (12+)] Future Scheduled 2021-10-[address] [facility] Test 00:00:00 (12+) [code = DEPRESSION Med ical Center SCREENING (12+)] Future Scheduled 2021-06-24 COVID-19 VACCINE (3 - [facility] Test 00:00:00 Booster for Pfizer Medical C enter series) [code = COVID-19 VACCINE (3 - Booster for Pfizer series)] Future Scheduled 2021-06-24 COVID-19 VACCINE (3 - [facility] Test 00:00:00 Booster for Pfizer Medical C enter series) [code = COVID-19 VACCINE (3 - Booster for Pfizer series)] Future Scheduled 2019-03-[address] [facility] Test 00:00:00 0-64 YRS (2 - PCV) [code Med ical Center = PNEUMOCOCCAL VACCINE 0-64 YRS (2 - PCV)] Future Scheduled 2008 SHINGLES VACCINES ([address] [facility] Test 00:00:00 2) [code = SHINGLES Medical Center VACCINES (1 of 2)] Future Scheduled 2008 SHINGLES VACCINES ([address] [facility] Test 00:00:00 2) [code = SHINGLES Medical Center VACCINES (1 of 2)] Future Scheduled 1993 Lipid panel (procedure) [facility] Test 00:00:00 [code = 12833853] Medical Ce nter Future Scheduled 1993 Lipid panel (procedure) [facility] Test 00:00:00 [code = 71520324] Medical Ce nter Future Scheduled 1976 HEPATITIS C SCREENING [facility] 00:00:00 [code = HEPATITIS C Medical Center SCREENING] Future Scheduled 1976 HEPATITIS C [facility]CRE[facility]ING [facility] 00:00:00 [code = HEPATITIS C Medical Center SCREENING] Future Scheduled 1968 DIABETIC EYE EXAM [code [facility] Test 00:00:00 = DIABETIC EYE EXAM] Medical Center Future Scheduled [address] [facility] Test 00:[facility]:00 examination Medical Center (regime/therapy) [code = 010732706] Future Scheduled 1968 Urine screening for [facility] Test 00:00:00 protein (procedure) Medical Center [code = 510031469] Future Scheduled 1958 CT Colonography (combo) [facility] Test 00:00:00 [code = CT Colonography [facility] Center (combo)] Future Scheduled 1958 Screening for malignant [facility] Test 00:00:00 neoplasm of colon Medical Ce nter (procedure) [code = 216296863] Future Scheduled 1958 Screening for malignant [facility] Test 00:00:00 neoplasm of colon Medical Ce nter (procedure) [code = 830841321] Future Scheduled 1958 Screening for malignant [facility] Test 00:00:00 neoplasm of colon Medical Ce nter (procedure) [code = 377395749] Future Scheduled 1958 Screening for malignant [facility] Test 00:00:00 neoplasm of colon Medical Ce nter (procedure) [code = 778450018] Future Scheduled 1958 Sigmoidoscopy [code = CH I [facility] ([facility] 00:[facility]00 [code = CT Colonography Medi [facility] (combo)] Future Scheduled 1960 Screening for malignant [facility] 00:00:00 neoplasm of colon Medical Ce nter (procedure) [code = 221751518] Future Scheduled 1960 Screening for malignant [facility] 00:00:00 neoplasm of colon Medical Ce nter (procedure) [code = 859363745] Future Scheduled 1960 Screening for malignant [facility] 00:00:00 neoplasm of colon Medical Ce nter (procedure) [code = 677681781] Future Scheduled 1958 Screening for malignant [facility] 00:00:00 neoplasm of colon Medical Ce nter (procedure) [code = 134883799] Future Scheduled 1960 Sigmoidoscopy [code = [facility]] Medical Cente r Encounters Start End Encounter Admission Attending Care Care Encounter Source Date/Time Date/Time Type Type Clinicians Facility Department ID 2022-07-07 Outpatient SYSTEM, [facility] [id number] 08:43:08 PROVIDER Charlesrodger cook 2022-06-18 Outpatient Batista, Na STLMLC STLMLC [id number] Common 09:10:00 [facility] 2022-03-31 Outpatient Batista, Na STLMLC STLMLC [id number] Common 10:00:00 [facility] 2022-02-24 Outpatient Batista, Na STLMLC STLMLC [id number] Common 20:38:01 [facility] 2022-01-19 Outpatient Batista, Na STLMLC STLMLC [id number] Common 08:25:00 [facility] 2022-01-18 Outpatient Batista, Na STLMLC STLMLC [id number] Common 11:00:01 [facility] 2021-11-18 Outpatient Batista, Na STLMLC STLMLC [id number] Common 12:15:13 [id number] [facility] 2021-11-18 Outpatient Batista, Na STLMLC STLMLC [id number] Common 12:14:04 [id number] [facility] 2021-11-18 Outpatient Batista, Na STLMLC STLMLC [id number] Common 11:46:51 [id number] [facility] 2021-11-18 Outpatient Batista, Na STLMLC STLMLC [id number] 2 Common 11:46:26 [id number] [facility] 2021-11-18 Outpatient Batista, Na STLMLC STLC [id number] 2 Common 11:17:12 [id number] [facility] 2022-08-09 2022-08-09 Outpatient ABDIAS HERNANDEZ SLE [id number] [facility] 00:00:00 00:00:00 [facility] 2022-08-09 2022-08-09 Outpatient ISIDRO LUIS SLE [facility] [id number] [facility] 00:00:00 00:00:00 [facility] 2022-07-20 2022-07-20 Outpatient ISIDRO SLE SLE [id number] [facility] 00:00:00 00:00:00 2022-07-14 2022-07-14 Ancillary Lex, 1.2.840.1 [id number] Univers 20:10:00 20:15:00 Procedure Moi 98131.1.1 it y of 3.412.2.7 [place] .3.599218 .8 [facility] 2022-07-14 2022-07-14 Ancillary Lex, 1.2.840.1 [id number] Univers 20:05:00 20:10:00 Procedure Moi 96035.1.1 it y of 3.412.2.7 [place] .3.834807 .8 [facility] 2022-07-14 2022-07-14 Ancillary Lex, 1.2.840.1 [id number] Univers 20:00:00 20:05:00 Procedure Moi 38978.1.1 it y of 3.412.2.7 [place] .3.075414 .8 [facility] 2022-07-14 2022-07-14 Outpatient ISIDRO DIANE MDA MDA [id number] 11:26:45 11:26:45 MOI cook 2022-07-14 2022-07-14 Outpatient ISIDRO DIANE MDA MDA [id number] 11:26:42 11:26:42 MOI cook 2022-07-14 2022-07-14 Outpatient ISIDRO DIANE MDA MDA [id number] 11:26:39 11:26:39 MOI cook 2022-07-14 2022-07-14 Telemedici Diane, 1.2.840.1 [id number] Univers 09:00:00 09:47:54 ne Moi 19243.1.1 ity of 3.412.2.7 [place] .3.892385 MD Avery8 [facility] 2022-07-14 2022-07-14 Outpatient ISIDRO DIANE [facility] MDA [id number] 08:32:52 09:47:54 MOI cook 2022-07-12 2022-07-12 Outpatient ISIDRO DIANE MDA MDA [id number] 15:55:43 16:01:08 MOI ocok 2022-07-12 2022-07-12 GREG Diane 1.2.840.1 [id number] Univers 09:00:00 16:01:08 Moi 43399.1.1 ity of 3.412.2.7 [place] .3.282543 MD Avery8 [facility] 2022-07-07 2022-07-07 [facility] [id number] 13:21:11 23:59:00 Encounter [facility] 2022-07-07 2022-07-07 Outpatient YAYA HERNANDEZ [id number] [facility] 13:21:11 23:59:00 [facility] 2022-06-29 2022-06-29 Office FAN LUIS 1.2.840.114 [id number] [facility] 12:29:31 15:47:21 Visit C[facility]WFORD AMBULATOR 350.1.13.21 College Y 0.2.7.2.686 of [id number] Medi chester 300 e 2022-06-29 2022-06-29 Outside [facility] [id number] 00:00:00 00:00:00 Orders [facility] 2022-06-26 2022-06-27 [facility] SaskiavannaJose Antonio [facility] [id number] 15:05:00 14:22:[address] [facility] 2022-06-26 2022-06-27 Inpatient ER YAYA LARKIN Urology [id number] [facility] 15:05:00 14:22:00 NAV 2022-06-26 2022-06-[address] [facility] [id number] 18:00:00 19:38:00 [facility] 2022-06-26 2022-06-[address] [facility] [id number] 18:07:00 19:14:00 Event Edmond[facility] 2022-06-26 2022-06-[address] [facility] [id number] 00:00:00 00:00:00 ion [facility] 2022-06-23 2022-06-23 ambulatory STLMLC STLMLC [id number] Common 00:00:00 00:00:00 [facility] 2022-06-22 2022-06-22 ambulatory STLMLC STLMLC [id number] Common 00:00:00 00:00:00 [facility] 2022-06-07 2022-06-07 Office TELMADOMENICACAITY MARTHA [facility] 1.2.840.114 [id number] [facility] 14:29:05 14:29:05 Visit AMBULATOR 350.1.13.21 College Y 0.2.7.2.686 of [id number] Medi chester 300 e 2022-05-21 2022-05-21 ambulatory STLMLC STLMLC [id number] Common 00:00:00 00:00:00 [facility] 2022-05-13 2022-05-13 ambulatory STLMLC STLMLC [id number] Common 00:00:00 00:00:00 [facility] 2022-03-24 2022-03-24 [facility] Rudi Padilla [facility] [id number] 16:33:34 23:59:00 Encounter 3, [facility] Tip [facility] 2022-03-24 2022-03-24 [facility] Rudi Padilla [facility] [id number] 16:33:34 23:59:00 Encounter 3, [facility] Tip [facility] 2022-03-24 2022-03-24 Outpatient [facility] [id number] SLE 16:33:34 23:59:00 RUDI 2022-03-09 2022-03-09 ambulatory STLMLC STLMLC [id number] Common 00:00:00 00:00:00 [facility] 2022-03-08 2022-03-08 ambulatory STLMLC STLMLC [id number] Common 00:00:00 00:00:00 [facility] 2022-03-04 2022-03-[address] [facility] [id number] 00:00:00 00:00:00 Orders [facility] 2022-03-04 2022-03-04 ambulatory STLMLC STLMLC [id number] Common 00:00:00 00:00:00 [facility] 2022-03-04 2022-03-[address] [facility] [id number] 00:00:00 00:00:00 Orders [facility] 2022-01-19 2022-01-19 ambulatory STLMLC STLMLC [id number] Common 00:00:00 00:00:00 [facility] 2021-10-08 2021-10-08 ambulatory STLMLC STLMLC [id number] Common 00:00:00 00:00:00 [facility] 2021-07-27 2021-07-27 Outpatient STLMLC STLMLC [id number] Common 00:00:00 00:00:00 [facility] 2021-07-13 2021-07-13 Outpatient STLMLC STLMLC [id number] Common 00:00:00 00:00:00 [facility] 2021-04-10 2021-04-10 Outpatient STLMLC STLMLC [id number] Common 00:00:00 00:00:00 [facility] 2021-04-072021-04-07 Outpatient STLMLC STLMLC [id number] Common 00:00:00 00:00:00 [facility] 2020-10-10 2020-10-10 Outpatient STLMLC STLMLC [id number] Common 00:00:00 00:00:00 [facility] 2020-07-11 2020-07-11 Outpatient STLMLC STLMLC [id number] Common 00:00:00 00:00:00 [facility] 2020-05-08 2020-05-08 [facility] [id number] Common 08:20:00 08:20:[address] [facility] 2020-04-29 2020-04-29 Out[facility] [id number] Common 14:37:00 14:37:[address] [facility] 2020-03-21 2020-04-02 Inpatient [facility]Fl[facility] [id number] Memoria 15:02:00 19:30:[address] 2020-03-21 2020-04-02 [facility]patient [facility] [id number] Memoria 15:02:00 19:30:[address] 2020-03-21 2020-04-[address] [facility] [id number] [facility] 20:43:00 14:30:00 [facility] 2020-03-21 2020-04-02 Outpatient Cinthya [facility] [id number] 10:02:00 14:30:00 Swathi 2020-03-23 2020-03-23 Out[facility] [id number] Common 16:37:00 16:37:[address] [facility] 2020-03-21 2020-03-[address] [facility] LETTY [id number] [facility] 15:38:00 23:59:00 NAV 2019-09-28 2019-09-28 Outpatient [facility] [id number] Common 08:00:00 08:00:[address] [facility] 2019-07-10 2019-07-10 Outpatient [facility] [id number] Common 11:20:00 11:20:[address] [facility] 2019-03-29 2019-03-29 Outpatient [facility] [id number] Common 08:00:00 08:00:[address] [facility] 2019-01-15 2019-01-15 [facility]patient [facility] [id number] Common 14:53:00 14:53:[address] [facility] 2018-09-28 2018-09-28 Outpatient [facility] [id number] Common 08:30:00 08:30:[address] [facility] 2018-03-29 2018-03-29 Outpatient [facility]razana Elenat [id number] Common 15:00:00 15:00:[address] [facility] Results Test Description Test Time Test Comments Results Result [facility] e Comments CT, ABDOMEN 2022-07-09 Unlisted Reason 11:01:00 for Exam - Click Yes and Enter Reason [facility]->Yes MEDICAL CENTERName: Unlisted Reason OMKAR SALINAS for : 1960 Sex: Exam->elevated M prostat specific antigen Is this for *FINAL REPORT enterography?->N o Will this CT of the abdomen procedure and pelvis, with require oral contrast Clinical contrast?->No History: Unlisted Reason for Examelevated prostate specific antigen Technique: CT of the abdomen and pelvis is performed with intravenous contrast administration. This exam was performed according to our departmental dose optimization program which includes automated exposure control, adjustment of the mA and/or kV according to patient's size and/or use of iterative reconstructive technique. Comparison Film: None Discussion: Visualized lower thorax is unremarkable. Liver is mildly fatty. No mass lesion is identified. No biliary ductal dilatation, gallbladder is unremarkable. Spleen, pancreas and adrenal glands are normal. There is a right-sided ureteral stent, no hydroureter. Fullness in the right renal pelvis probably represents parapelvic cysts. There are several nonobstructive stones within the right kidney, the largest measures approximately 8 mm. In the lower pole of the left kidney, there is also a 6 mm nonobstructive stone. No suspicious renal mass is identified. There is mild degree of edema along the right ureter. No bowel obstruction, or abnormal bowel wall thickening. In the pelvis, punctate focus of air is probably related to instrumentation. Prostate and seminal vesicles appear unremarkable. No ascites, free air or lymphadenopathy. Bony structures demonstrate degenerative changes. Impression: There is a right-sided ureteral stent. Fullness in the right renal pelvis probably represent parapelvic cysts. Multiple nonobstructive stones in the right kidney, measuring up to 8 mm. 6 mm nonobstructive stone in the left kidney. Mild hepatic steatosis. Signed: Yasmin Veloz Verified Date/Time: 07/09/2022 11:01:10 Reading Location: [facility] [id number] [facility] Consult Reading Room Anaerobic culture 2022-07-02 11:16:54 Test Item Value Reference Range Interpretation Comme nts Result (test code = 6463-4) No anaerobes isolated [facility] [id number] 11:16:54 Test Item Value Reference Range Interpretation Comments CULTURE (BEAKER) (test No anaerobes isolated code = 1095) Surgically obtained culture + gram [id number] 13:23:39 Test Item Value Reference Range Interpretation Comments Result (test code = 6463-4) No growth Gram Stain Result (test No organisms seen code = 1123) [facility] + GRAM [id number] 13:23:39 Test Item Value Reference Range Interpretation Comments CULTURE (BEAKER) (test code No growth = 1095) GRAM STAIN RESULT (BEAKER) <1+ WBCs (test code = 1123) GRAM STAIN RESULT (BEAKER) No organisms seen (test code = 58209) POC-Glucose [id number] 11:53:51 Test Item Value Reference Range Interpretation Comments POC-Glucose Meter (test 137 mg/dL 70-110 H : TE STED AT [facility] code = 1538) 67[address] [facility], 770 30: Chemical Compounder/Techni claire ID = [id number] for Jeanie [facility] Interpretation (test Abnormal code = 91587-0) [facility] [id number] 11:53:51 Test Item Value Reference Range Interpretation Comments POC-GLUCOSE METER 137 mg/dL 70-110 H : [facility] 6720 (BEAKER) (test code = [facility], 1538) 33270: Chemical Compounder/Techni claire ID = [id number] for Jeanie Campo HEMOGLOBIN [id number] 08:49:30 Test Item Value Reference Range Interpretation Comments HEMOGLOBIN A1C 7.1 % See_Comment H [Automated m essage] ELECTROPHORESIS ([facility]) The system which (test code = 3811) generated this result transmitted ref erence range: <=5.6%. The reference range was not used to int erpret this result as normal/abnormal . "The A1c is measured using a NGSP-certified method. HbA1c value equal to or greater than 6.5% as thediagnosis cutoff for diabetes. An HbA1c value of 5.7- 6.4% indicates increased risk for diabetes (prediabetes)."Chemical Compounder ID - ADMPOCT- GLUCOSE [id number] 06:47:07 Test Item Value Reference Range Interpretation Comments POC-GLUCOSE METER 157 mg/dL 70-110 H : TESTED A T [facility] 6720 (BEAKER) (test code = [facility], 1538) 60122: Chemical Compounder/Techni claire ID = [id number] for CHIDI DILL BASIC METABOLIC [id number] 06:07:32 Test Item Value Reference Range Interpretation Comments SODIUM (BEAKER) 137 meq/L 136-145 (test code = 381) POTASSIUM 3.9 meq/L 3.5-5.1 (BEAKER) (test code = 379) CHLORIDE (BEAKER) 107 meq/L 98-107 (test code = 382) CO2 (BEAKER) 20 meq/L 22-29 L (test code = 355) BLOOD UREA 27 mg/dL 7-21 H NITROGEN (BEAKER) (test code = 354) CREATININE 1.73 mg/dL 0.57-1.25 H (BEAKER) (test code = 358) GLUCOSE RANDOM 156 mg/dL 70-105 H (BEAKER) (test code = 652) CALCIUM (BEAKER) 8.4 mg/dL 8.4-10.2 (test code = 697) EGFR (BEAKER) 44 Interpretatio n of eGFR (test code = mL/min/1.73 values Stage De scription 1092) sq m Result G1 Alejandra l or high >=90 G2 Mildly decreased 60-89 G3a Mildl y to moderately 45-5 9 G3b Moderately to s everely 30-44 G4 Severl y decreased 15-29 G5 Kidney failure <15Reported eGF R is based on the CKD-EPI 2020 equation that d oes not use a race coefficientEsti mated GFR is not as accur ate as Creatinine Sania fernandez in predicting glom erular filtration rate . Estimated GFR is not appl icable for dialysis patien ts Chemical Compounder ID - CHINA FriedmanVITAMIN D, [id number] 05:55:47 Test Item Value Reference Range Interpretation Comments VITAMIN D 25-OH (BEAKER) (test 30.5 ng/mL 6.6-49.9 code = 2764) Effective 08/03/2017: Reference Range ChangeNew: 6.6-49.9 ng/mL Previous: 13.0- 47.8 ng/mLRecommendedVitamin D Target Range: 30.0-40.0 ng/mLOperator ID - ANÍBAL LUrinalysis with Microscopic If [id number] 05:46:23 Test Item Value Reference Range Interpretation Comments Color, UA (test code = [place] 5778-6) Clarity, UA (test code = Hazy 5767-9) Specific [place], UA (test 1.015 1.001-1.035 code = 5811-5) pH, UA (test code = 6.0 5.0-8.0 5803-2) Protein, UA (test code = 200 mg/dL Negative A 18089-5) Glucose, UA (test code = Negative Negative 365) Ketones, UA (test code = Negative Negative 2514-8) Bilirubin, UA (test code = Negative Negative 27719-3) Blood, UA (test code = Large Negative A 65321-3) Nitrite, UA (test code = Negative Negative 5802-4) Leukocytes, UA (test code Moderate Negative A = 5799-2) Urobilinogen, UA (test 0.2 mg/dL 0.2-1.0 code = 97476-8) Specimen Source (test code = 2795) MITCH (test code = MITCH) Chemical Compounder ID - [auto]Chemical Compounder ID - tech Lab Interpretation (test Abnormal code = 71056-6) [facility] Hospital[facility]inalysis Microscopic [id number] 05:46:23 Test Item Value Reference Range Interpretation Comments RBC, UA (test code 983 See_Comment [Automat ed = 51995-7) message] The sy stem which generated this result transmitted reference range : /HPF. The refer ence range was not u sed to interpret th is result as normal/abnormal . WBC, UA (test code 57 See_Comment [Automat ed = 5821-4) message] The sy stem which generated this result transmitted reference range : /HPF. The refer ence range was not u sed to interpret th is result as normal/abnormal . Bacteria, UA (test Many code = 14301-7) Mucus (test code = Rare 8247-9) Crystals, Urine None Seen (test code = 77965-5) Amorphous Crystals Few (test code = 37874-0) MITCH (test code = Chemical Compounder ID - MITCH) tech [facility] WITH MICROSCOPIC IF [id number] 05:46:23 Test Item Value Reference Range Interpretation Comments COLOR (BEAKER) (test code = 470) [place] CLARITY (BEAKER) (test code = 469) Hazy SPECIFIC GRAVITY UA (BEAKER) (test 1.015 1.001-1.035 code = 468) PH UA (BEAKER) (test code = 467) 6.0 5.0-8.0 PROTEIN UA (BEAKER) (test code = 200 mg/dL Negative A 464) GLUCOSE UA (BEAKER) (test code = Negative Negative 365) KETONES UA (BEAKER) (test code = Negative Negative 371) BILIRUBIN UA (BEAKER) (test code = Negative Negative 462) BLOOD UA (BEAKER) (test code = 461) Large Negative A NITRITE UA (BEAKER) (test code = Negative Negative 465) LEUKOCYTE ESTERASE UA (BEAKER) Moderate Negative A (test code = 466) UROBILINOGEN UA (BEAKER) (test code 0.2 mg/dL 0.2-1.0 = 463) SOURCE(BEAKER) (test code = 2795) Chemical Compounder ID - [auto]Chemical Compounder ID - techURINALYSIS [id number] 05:46:23 Test Item Value Reference Range Interpretation Comments RBC UA (BEAKER) (test code = 519) 983 /HPF WBC UA (BEAKER) (test code = 520) 57 /HPF BACTERIA (BEAKER) (test code = 517) Many MUCUS (BEAKER) (test code = 1574) Rare CRYSTALS, URINE (BEAKER) (test code None Seen = 1521) AMORPHOUS CRYSTALS (BEAKER) (test Few code = 1584) Chemical Compounder ID - techCBC W/PLT COUNT & AUTO [id number] 05:00:06 Test Item Value Reference Range Interpretation Comments WHITE BLOOD CELL COUNT (BEAKER) 9.2 K/ L 3.5-10.5 (test code = 775) RED BLOOD CELL COUNT (BEAKER) 4.55 M/ L 4.63-6.08 L (test code = 761) HEMOGLOBIN (BEAKER) (test code = 13.9 GM/DL 13.7-17.5 410) HEMATOCRIT (BEAKER) (test code = 41.8 % 40.1-51.0 411) MEAN CORPUSCULAR VOLUME (BEAKER) 91.9 fL 79.0-92.2 (test code = 753) MEAN CORPUSCULAR HEMOGLOBIN 30.5 pg 25.7-32.2 (BEAKER) (test code = 751) MEAN CORPUSCULAR HEMOGLOBIN CONC 33.3 GM/DL 32.3-36.5 (BEAKER) (test code = 752) RED CELL DISTRIBUTION WIDTH 14.3 % 11.6-14.4 (BEAKER) (test code = 412) PLATELET COUNT (BEAKER) (test 181 K/CU MM 150-450 code = 756) MEAN PLATELET VOLUME (BEAKER) 11.2 fL 9.4-12.4 (test code = 754) NUCLEATED RED BLOOD CELLS 0 /100 WBC 0-0 (BEAKER) (test code = 413) NEUTROPHILS RELATIVE PERCENT 73 % (BEAKER) (test code = 429) LYMPHOCYTES RELATIVE PERCENT 13 % (BEAKER) (test code = 430) MONOCYTES RELATIVE PERCENT 12 % (BEAKER) (test code = 431) EOSINOPHILS RELATIVE PERCENT 1 % (BEAKER) (test code = 432) BASOPHILS RELATIVE PERCENT 1 % (BEAKER) (test code = 437) NEUTROPHILS ABSOLUTE COUNT 6.71 K/ L 1.78-5.38 H (BEAKER) (test code = 670) LYMPHOCYTES ABSOLUTE COUNT 1.21 K/ L 1.32-3.57 L (BEAKER) (test code = 414) MONOCYTES ABSOLUTE COUNT (BEAKER) 1.09 K/ L 0.30-0.82 H (test code = 415) EOSINOPHILS ABSOLUTE COUNT 0.12 K/ L 0.04-0.54 (BEAKER) (test code = 416) BASOPHILS ABSOLUTE COUNT (BEAKER) 0.06 K/ L 0.01-0.08 (test code = 417) IMMATURE GRANULOCYTES-RELATIVE 0 % 0-1 PERCENT (BEAKER) (test code = 2801) Sodium, random [id number] 04:20:50 Test Item Value Reference Range Interpretation Comments Sodium Urine (test 47 meq/L code = 2955-3) MITCH (test code = Reference Range: No MITCH) NormalsOperator ID - [facility] N[facility], random [id number] 04:20:50 Test Item Value Reference Range Interpretation Comments Urea Nitrogen, Ur 581 mg/dL (test code = 3095-7) MITCH (test code = Reference Range: No MITCH) NormalsOperator ID - [facility] RANDOM [id number] 04:20:50 Test Item Value Reference Range Interpretation Comments SODIUM URINE (BEAKER) (test code = 47 meq/L 243) Reference Range: No NormalsOperator ID - PIAYA LUREA NITROGEN, RANDOM URINE 2022-06-27 04:20:50 Test Item Value Reference Range Interpretation Comments UREA NITROGEN URINE (BEAKER) (test 581 mg/dL code = 538) Reference Range: No NormalsOperator ID - PIAYA LCreatinine, random urine 2022-06-27 04:20:49 Test Item Value Reference Range Interpretation Comments Creatinine, Ur 101.2 mg/dL (test code = 2161-8) MITCH (test code = Reference Range: No MITCH) NormalsOperator ID - PIAYA L [facility]AT[facility], RANDOM [id number] 04:20:49 Test Item Value Reference Range Interpretation Comments CREATININE URINE (BEAKER) (test 101.2 mg/dL code = 375) Reference Range: No NormalsOperator ID - PIAYA LPOCT-GLUCOSE [id number] 00:32:22 Test Item Value Reference Range Interpretation Comments POC-GLUCOSE METER 148 mg/dL 70-110 H : TESTED A T [facility] 6720 (BEAKER) (test code = [facility], 1538) 39613: Chemical Compounder/Techni claire ID = [id number] for SANJEEV ANDREA POCT-GLUCOSE [id number] 19:34:15 Test Item Value Reference Range Interpretation Comments POC-GLUCOSE METER 150 mg/dL 70-110 H : TESTED A T [facility] 6720 (BEAKER) (test code = [facility], 1538) 39495: Chemical Compounder/Techni claire ID = [id number] for Dillan Fragoso [place], FLUORO, NON-SPECIFIC, UP TO 1 [id number] 19:00:00Reason for exam:->[facility]rolith[facility] : 1960 Sex: MAn imaging unit was utilized for this procedure. No radiologist interpretation was requested. Refer to the EMR for findings. Refer to PACS for any patient radiation dose information.CBC W/PLT COUNT & AUTO [id number] 17:37:31 Test Item Value Reference Range Interpretation Comments WHITE BLOOD CELL COUNT (BEAKER) 10.8 K/ L 3.5-10.5 H (test code = 775) RED BLOOD CELL COUNT (BEAKER) 5.03 M/ L 4.63-6.08 (test code = 761) HEMOGLOBIN (BEAKER) (test code = 15.5 GM/DL 13.7-17.5 410) HEMATOCRIT (BEAKER) (test code = 45.8 % 40.1-51.0 411) MEAN CORPUSCULAR VOLUME (BEAKER) 91.1 fL 79.0-92.2 (test code = 753) MEAN CORPUSCULAR HEMOGLOBIN 30.8 pg 25.7-32.2 (BEAKER) (test code = 751) MEAN CORPUSCULAR HEMOGLOBIN CONC 33.8 GM/DL 32.3-36.5 (BEAKER) (test code = 752) RED CELL DISTRIBUTION WIDTH 14.0 % 11.6-14.4 (BEAKER) (test code = 412) PLATELET COUNT (BEAKER) (test 184 K/CU MM 150-450 code = 756) MEAN PLATELET VOLUME (BEAKER) 10.6 fL 9.4-12.4 (test code = 754) NUCLEATED RED BLOOD CELLS 0 /100 WBC 0-0 (BEAKER) (test code = 413) NEUTROPHILS RELATIVE PERCENT 80 % (BEAKER) (test code = 429) LYMPHOCYTES RELATIVE PERCENT 9 % (BEAKER) (test code = 430) MONOCYTES RELATIVE PERCENT 10 % (BEAKER) (test code = 431) EOSINOPHILS RELATIVE PERCENT 1 % (BEAKER) (test code = 432) BASOPHILS RELATIVE PERCENT 1 % (BEAKER) (test code = 437) NEUTROPHILS ABSOLUTE COUNT 8.61 K/ L 1.78-5.38 H (BEAKER) (test code = 670) LYMPHOCYTES ABSOLUTE COUNT 0.93 K/ L 1.32-3.57 L (BEAKER) (test code = 414) MONOCYTES ABSOLUTE COUNT (BEAKER) 1.09 K/ L 0.30-0.82 H (test code = 415) EOSINOPHILS ABSOLUTE COUNT 0.08 K/ L 0.04-0.54 (BEAKER) (test code = 416) BASOPHILS ABSOLUTE COUNT (BEAKER) 0.06 K/ L 0.01-0.08 (test code = 417) IMMATURE GRANULOCYTES-RELATIVE 1 % 0-1 PERCENT (BEAKER) (test code = 2801) COMPREHENSIVE METABOLIC [id number] 17:29:34 Test Item Value Reference Range Interpretation Comments TOTAL PROTEIN 7.6 gm/dL 6.0-8.3 (BEAKER) (test code = 770) ALBUMIN (BEAKER) 4.3 g/dL 3.5-5.0 (test code = 1145) ALKALINE 44 U/L 40-150 PHOSPHATASE (BEAKER) (test code = 346) BILIRUBIN TOTAL 0.8 mg/dL 0.2-1.2 (BEAKER) (test code = 377) SODIUM (BEAKER) 137 meq/L 136-145 (test code = 381) POTASSIUM (BEAKER) 4.1 meq/L 3.5-5.1 (test code = 379) CHLORIDE (BEAKER) 103 meq/L 98-107 (test code = 382) CO2 (BEAKER) (test 24 meq/L 22-29 code = 355) BLOOD UREA 29 mg/dL 7-21 H NITROGEN (BEAKER) (test code = 354) CREATININE 2.00 mg/dL 0.57-1.25 H (BEAKER) (test code = 358) GLUCOSE RANDOM 174 mg/dL 70-105 H (BEAKER) (test code = 652) CALCIUM (BEAKER) 9.1 mg/dL 8.4-10.2 (test code = 697) AST (SGOT) 18 U/L 5-34 (BEAKER) (test code = 353) ALT (SGPT) 23 U/L 6-55 (BEAKER) (test code = 347) EGFR (BEAKER) 37 Interpretatio n of eGFR (test code = 1092) mL/min/1.[address] age Description sq m Result G1 Alejandra l or high >=90 G2 Mildly decreased 60-89 G3a Mildl y to moderately 45-5 9 G3b Moderately to s everely 30-44 G4 Severl y decreased 15-29 G5 Kidney failure <15Reported eGF R is based on the CKD-EPI 2020 equation that d oes not use a race coefficientEsti mated GFR is not as accur ate as Creatinine Sania fernandez in predicting glom erular filtration rate . Estimated GFR is not appl icable for dialysis patien ts Chemical Compounder ID - ROSALBA MPROTHROMBIN TIME/[id number] 17:24:55 Test Item Value Reference Range Interpretation Comments PROTIME (TAVON) 14.1 seconds 11.9-14.2 (test code = 759) INR (BEAKER) (test 1.16 See_Comment [Automat ed message] code = 370) The system [employer] generated this result transmitted ref erence range: <=5.90. The reference range was not used to int erpret this result as normal/abnormal . RECOMMENDED COUMADIN/WARFARIN INR THERAPY RANGESSTANDARD DOSE: 2.0 - 3.0 Includes: PROPHYLAXIS for venous thrombosis, systemic embolization; TREATMENT for venous thrombosis and/or pulmonary embolus.HIGH RISK: Target INR is 2.5-3.5 for patients with mechanical heart valves.MR, PELVIS, WITHOUT / WITH IV CONTRAST 2022-04-01 15:06:00Unlisted Reason for Exam - Click Yes and Enter Reason Below- >YesUnlisted Reason for Exam->prostate nodule, elevated psaAnesthesia:- >NoneDoes the patient have an implanted electronic device?->No [facility] : 1960 Sex: MFINAL REPORT MRI OF THE PROSTATE WITH AND WITHOUT CONTRAST CLINICAL HISTORY: Unlisted Reason for Examprostate nodule, elevated psaPSA: not provided COMPARISON: None. TECHNIQUE: MRI of thepelvis was performed without and with intravenous contrast. [...] is heterogeneous with a few BPH nodules, PI-RADS1. The background peripheral zone is heterogeneous with [...] moderately hypointense signal with ill-defined margins, 4/5 suspicionDiffusion- weighted imaging: focal markedly hyperintense high B-value DWI and markedly hypointense ADC, 4/5 suspicionDynamic contrast-enhanced perfusion: positiveSuspicion for extracapsular extension: 1 (1 = very low suspicion, 2 = unlikely, 3 = intermediate suspicion, 4 = likely, 5 =definite)Suspicion for neurovascular bundle involvement: 1 (1 = none, 2 = possible, 3 = highly likely )Suspicion for seminal vesicle invasion: 1 (1 = very low suspicion, 2 = unlikely, 3 = intermediate suspicion, 4 = likely, 5 = definite)Overall PI- RADSv2.1 Score: 4/5 (1=very low suspicion, 5=very highly suspicious). There is no lymphadenopathy. No focal bone lesions are present. IMPRESSION: 1. A 0.8 cm PI-RADS 4 lesion in the left peripheral zone. 2. Capsular margin: intact . 3. Sequelae of prostatitis. Overall PI-RADS Category: 4/5 Signed: Franc Isaacs Verified Date/Time: 04/01/2022 15:06:36 [facility] [id number] 06:56:00 Test Item Value Reference Range Interpretation Comments Phosphorus (test code = Phosphorus) 5.9 2.5-4.5 [place] 282240-06-09 06:56:00 Test Item Value Reference Range Interpretation Comments Magnesium Lvl (test code = Magnesium 2.7 1.8-2.4 Lvl) [facility]2020-06-09 06:56:00 Test Item Value Reference Range Interpretation Comments Glucose Lvl (test code = Glucose Lvl) 124 70-99 [place] 282240-06-09 06:56:00 Test Item Value Reference Range Interpretation Comments BUN (test code = BUN) 72 7-22 [place] 282240-06-09 06:56:00 Test Item Value Reference Range Interpretation Comments Creatinine Lvl (test code = Creatinine 5.12 0.50-1.40 Lvl) [place] 282240-06-09 06:56:00 Test Item Value Reference Range Interpretation Comments Sodium Lvl (test code = Sodium Lvl) 136 135-145 [place] 282240-06-09 06:56:00 Test Item Value Reference Range Interpretation Comments Potassium Lvl (test code = Potassium 4.6 3.5-5.1 Lvl) [facility]2020-06-09 06:56:00 Test Item Value Reference Range Interpretation Comments Chloride Lvl (test code = Chloride Lvl) 100 95-109 [place] 282240-06-09 06:56:00 Test Item Value Reference Range Interpretation Comments CO2 (test code = CO2) 23 24-32 [place] 282240-06-09 06:56:00 Test Item Value Reference Range Interpretation Comments AGAP (test code = AGAP) 17.6 10.0-20.0 [place] 282240-06-09 06:56:00 Test Item Value Reference Range Interpretation Comments Calcium Lvl (test code = Calcium Lvl) 8.6 8.5-10.5 [place] 282240-06-09 06:56:00 Test Item Value Reference Range Interpretation Comments B/C Ratio (test code = B/C Ratio) 14 1 6-25 [place] 282240-06-09 06:56:00 Test Item Value Reference Range Interpretation Comments Total Protein (test code = Total 7.0 6.4-8.4 Protein) [facility]2020-06-09 06:56:00 Test Item Value Reference Range Interpretation Comments Albumin Lvl (test code = Albumin Lvl) 2.6 3.5-5.0 [place] 282240-06-09 06:56:00 Test Item Value Reference Range Interpretation Comments Globulin (test code = Globulin) 4.4 2.7-4.2 [place] 282240-06-09 06:56:00 Test Item Value Reference Range Interpretation Comments A/G Ratio (test code = A/G Ratio) 0.6 1 0.7-1.6 [place] [address]-06-09 06:56:00 Test Item Value Reference Range Interpretation Comments ALT (test code = ALT) 122 See_Comment [Auto mated message] The system which ge nerated this result transmit lawson reference range : <=65. The reference range was not used to interpr et this result as alejandra l/abnormal. [place] 282240-06-09 06:56:00 Test Item Value Reference Range Interpretation Comments AST (test code = AST) 65 See_Comment [Auto mated message] The system which ge nerated this result transmit lawson reference range : <=37. The reference range was not used to interpr et this result as alejandra l/abnormal. [facility] [id number] 06:56:00 Test Item Value Reference Range Interpretation Comments Alk Phos (test code = Alk Phos) 43 39-136 [facility] [id number] 06:56:00 Test Item Value Reference Range Interpretation Comments Bili Total (test code = Bili Total) 0.4 0.2-1.3 [facility] [id number] 06:56:00 Test Item Value Reference Range Interpretation Comments eGFR (test code = eGFR) 11 [place] 439150-06-09 06:56:00 Test Item Value Reference Range Interpretation Comments WBC (test code = WBC) 9.8 3.7-10.4 [place] 439150-06-09 06:56:00 Test Item Value Reference Range Interpretation Comments RBC (test code = RBC) 3.67 4.70-6.10 [facility]fRCMSXQVJXY9079-13-01 06:56:00 Test Item Value Reference Range Interpretation Comments Hgb (test code = Hgb) 11.5 14.0-18.0 [facility] HospitalQbowekdFSMSWXSFAA9331-06-33 06:56:00 Test Item Value Reference Range Interpretation Comments Hct (test code = Hct) 33.8 42.0-54.0 [facility] HospitalVtxcqlhDAPWAUXMNG4932-58-83 06:56:00 Test Item Value Reference Range Interpretation Comments MCV (test code = MCV) 92.1 80.0-94.0 [facility] HospitalGckaykkAUTNFIUJCZ0673-87-51 06:56:00 Test Item Value Reference Range Interpretation Comments MCH (test code = MCH) 31.3 pg 27.0-31.0 [facility] HospitalZvqxgyuNGLXOAUNFT3921-76-28 06:56:00 Test Item Value Reference Range Interpretation Comments MCHC (test code = MCHC) 33.9 32.0-36.0 [facility] HospitalAtumtgeQMVVUQWUUH4804-05-48 06:56:00 Test Item Value Reference Range Interpretation Comments RDW (test code = RDW) 14.7 11.5-14.5 [facility] HospitalHtestpfPGSZTBFFQH8018-29-01 06:56:00 Test Item Value Reference Range Interpretation Comments Platelet (test code = Platelet) 216 133-450 [facility] HospitalRkaxxywBCLLVEMSQH6099-79-59 06:56:00 Test Item Value Reference Range Interpretation Comments MPV (test code = MPV) 9.7 7.4-10.4 [facility] HospitalTbhzttuPGOXDRJUOO0858-97-96 06:56:00 Test Item Value Reference Range Interpretation Comments Segs (test code = Segs) 77.3 45.0-75.0 [facility] HospitalItxapdlIKSYENYMOM6632-34-75 06:56:00 Test Item Value Reference Range Interpretation Comments Lymphocytes (test code = Lymphocytes) 9.5 20.0-40.0 [place] 439150-06-09 06:56:00 Test Item Value Reference Range Interpretation Comments Monocytes (test code = Monocytes) 11.0 2.0-12.0 [facility] HospitalZopuasgSXWCEDYEJY8268-37-21 06:56:00 Test Item Value Reference Range Interpretation Comments Eosinophils (test code = 1.3 See_Comment [A utomated message] The Eosinophils) system which ge nerated this result tra nsmitted reference range : <=4.0. The reference r pau was not used to int erpret this result as normal/abnormal . [facility] HospitalJdhpfrmIVHBMGBIPD4484-98-93 06:56:00 Test Item Value Reference Range Interpretation Comments Basophils (test code = 0.9 See_Comment [Aut omated message] The Basophils) system which ge nerated this result tra nsmitted reference range : <=1.0. The reference r pau was not used to int erpret this result as normal/abnormal . [facility] HospitalVdomjiqVTUGPVVZHB5159-28-51 06:56:00 Test Item Value Reference Range Interpretation Comments Neutrophils # (test code = Neutrophils 7.6 1.5-8.1 #) [facility] HospitalZtjfmmiSWNTDCNXIS5046-58-56 06:56:00 Test Item Value Reference Range Interpretation Comments Lymphocytes # (test code = Lymphocytes 0.9 1.0-5.5 #) [facility] HospitalNbqxsukXEPLPPKORA3157-40-21 06:56:00 Test Item Value Reference Range Interpretation Comments Monocytes # (test code 1.1 See_Comment [Aut omated message] The = Monocytes #) system which generated this result tra nsmitted reference range : <=0.8. The reference r pau was not used to int erpret this result as normal/abnormal . [facility]AdyulytDCBLCSULXD2269-65-68 06:56:00 Test Item Value Reference Range Interpretation Comments Eosinophils # (test code 0.1 See_Comment [A utomated message] The = Eosinophils #) system whic h generated this result tra nsmitted reference range : <=0.5. The reference r pau was not used to int erpret this result as normal/abnormal . [facility] NortheastSayyjhqLAQSJHAZKK3688-14-48 06:56:00 Test Item Value Reference Range Interpretation Comments Basophils # (test code 0.1 See_Comment [Aut omated message] The = Basophils #) system which generated this result tra nsmitted reference range : <=0.2. The reference r pau was not used to int erpret this result as normal/abnormal . [facility] [id number] 06:56:00 Test Item Value Reference Range Interpretation Comments Albumin Lvl (test code = Albumin Lvl) 2.6 3.5-5.0 [facility] [id number] 06:56:00 Test Item Value Reference Range Interpretation Comments Globulin (test code = Globulin) 4.4 2.7-4.2 [facility] [id number] 06:56:00 Test Item Value Reference Range Interpretation Comments A/G Ratio (test code = A/G Ratio) 0.6 1 0.7-1.6 [facility] [employer] A/S [id number] 06:56:00 Test Item Value Reference Range Interpretation Comments ALT (test code = ALT) 122 See_Comment [Auto mated message] The system which ge nerated this result transmit lawson reference range : <=65. The reference range was not used to interpr et this result as alejandra l/abnormal. [facility] [employer]/S [id number] 06:56:00 Test Item Value Reference Range Interpretation Comments AST (test code = AST) 65 See_Comment [Auto mated message] The system which ge nerated this result transmit lawson reference range : <=37. The reference range was not used to interpr et this result as alejandra l/abnormal. [facility] [employer] [id number] 06:56:00 Test Item Value Reference Range Interpretation Comments Alk Phos (test code = Alk Phos) 43 39-136 [facility] [employer]/S [id number] 06:56:00 Test Item Value Reference Range Interpretation Comments Bili Total (test code = Bili Total) 0.4 0.2-1.3 [facility] [employer]/S [id number] 06:56:00 Test Item Value Reference Range Interpretation Comments eGFR (test code = eGFR) 11 [facility]HiquzbpTLYGWKREPP1938-11-23 06:56:00 Test Item Value Reference Range Interpretation Comments WBC (test code = WBC) 9.8 3.7-10.4 [facility] HospitalUcpgcvlDDMUDUIEQC6440-59-72 06:56:00 Test Item Value Reference Range Interpretation Comments RBC (test code = RBC) 3.67 4.70-6.10 [facility] KdrmjfdXCESXHRBNS8940-33-40 06:56:00 Test Item Value Reference Range Interpretation Comments Hgb (test code = Hgb) 11.5 14.0-18.0 [facility] HospitalQxwbvfeOQPHMBVKIH6115-11-34 06:56:00 Test Item Value Reference Range Interpretation Comments Hct (test code = Hct) 33.8 42.0-54.0 [facility] HospitalAjugwgcIWKVKLQKCF8664-17-94 06:56:00 Test Item Value Reference Range Interpretation Comments MCV (test code = MCV) 92.1 80.0-94.0 [place] [address]-06-09 06:56:00 Test Item Value Reference Range Interpretation Comments MCH (test code = MCH) 31.3 pg 27.0-31.0 [facility] HospitalBtkasecVNWDBHNMOB8985-62-27 06:56:00 Test Item Value Reference Range Interpretation Comments MCHC (test code = MCHC) 33.9 32.0-36.0 [facility] HospitalJqymubzBDFNZDSBGP9462-66-85 06:56:00 Test Item Value Reference Range Interpretation Comments RDW (test code = RDW) 14.7 11.5-14.5 [place] 439150-06-09 06:56:00 Test Item Value Reference Range Interpretation Comments Platelet (test code = Platelet) 216 133-450 [facility] HospitalVddjpibFVKEDEIUBV4161-06-41 06:56:00 Test Item Value Reference Range Interpretation Comments MPV (test code = MPV) 9.7 7.4-10.4 [place] 439150-06-09 06:56:00 Test Item Value Reference Range Interpretation Comments Segs (test code = Segs) 77.3 45.0-75.0 [place] 439150-06-09 06:56:00 Test Item Value Reference Range Interpretation Comments Lymphocytes (test code = Lymphocytes) 9.5 20.0-40.0 [place] 439150-06-09 06:56:00 Test Item Value Reference Range Interpretation Comments Monocytes (test code = Monocytes) 11.0 2.0-12.0 [place] 439150-06-09 06:56:00 Test Item Value Reference Range Interpretation Comments Eosinophils (test code = 1.3 See_Comment [A utomated message] The Eosinophils) system which ge nerated this result tra nsmitted reference range : <=4.0. The reference r pau was not used to int erpret this result as normal/abnormal . [place] 439150-06-09 06:56:00 Test Item Value Reference Range Interpretation Comments Basophils (test code = 0.9 See_Comment [Aut omated message] The Basophils) system which ge nerated this result tra nsmitted reference range : <=1.0. The reference r pau was not used to int erpret this result as normal/abnormal . [place] 439150-06-09 06:56:00 Test Item Value Reference Range Interpretation Comments Neutrophils # (test code = Neutrophils 7.6 1.5-8.1 #) [facility] HospitalOajddhmOQOKJZTTZX8798-65-51 06:56:00 Test Item Value Reference Range Interpretation Comments Lymphocytes # (test code = Lymphocytes 0.9 1.0-5.5 #) [facility] HospitalKeafseeLKPMNOSOGY2251-96-08 06:56:00 Test Item Value Reference Range Interpretation Comments Monocytes # (test code 1.1 See_Comment [Aut omated message] The = Monocytes #) system which generated this result tra nsmitted reference range : <=0.8. The reference r pau was not used to int erpret this result as normal/abnormal . [place] 439150-06-09 06:56:00 Test Item Value Reference Range Interpretation Comments Eosinophils # (test code 0.1 See_Comment [A utomated message] The = Eosinophils #) system whic h generated this result tra nsmitted reference range : <=0.5. The reference r pau was not used to int erpret this result as normal/abnormal . [facility] HospitalLrfzgahWFEAEUCSGM7537-99-06 06:56:00 Test Item Value Reference Range Interpretation Comments Basophils # (test code 0.1 See_Comment [Aut omated message] The = Basophils #) system which generated this result tra nsmitted reference range : <=0.2. The reference r pau was not used to int erpret this result as normal/abnormal . [facility]2020-06-09 06:56:00 Test Item Value Reference Range Interpretation Comments Phosphorus (test code = Phosphorus) 5.9 2.5-4.5 [place] 282240-06-09 06:56:00 Test Item Value Reference Range Interpretation Comments Magnesium Lvl (test code = Magnesium 2.7 1.8-2.4 Lvl) [place] 282240-06-09 06:56:00 Test Item Value Reference Range Interpretation Comments Glucose Lvl (test code = Glucose Lvl) 124 70-99 [place] 282240-06-09 06:56:00 Test Item Value Reference Range Interpretation Comments BUN (test code = BUN) 72 7-22 [place] [address]-06-09 06:56:00 Test Item Value Reference Range Interpretation Comments Creatinine Lvl (test code = Creatinine 5.12 0.50-1.40 Lvl) [facility]2020-06-09 06:56:00 Test Item Value Reference Range Interpretation Comments Sodium Lvl (test code = Sodium Lvl) 136 135-145 [facility]2020-06-09 06:56:00 Test Item Value Reference Range Interpretation Comments Potassium Lvl (test code = Potassium 4.6 3.5-5.1 Lvl) [facility]2020-06-09 06:56:00 Test Item Value Reference Range Interpretation Comments Chloride Lvl (test code = Chloride Lvl) 100 95-109 [facility]2020-06-09 06:56:00 Test Item Value Reference Range Interpretation Comments CO2 (test code = CO2) 23 24-32 [facility]2020-06-09 06:56:00 Test Item Value Reference Range Interpretation Comments AGAP (test code = AGAP) 17.6 10.0-20.0 [facility]2020-06-09 06:56:00 Test Item Value Reference Range Interpretation Comments Calcium Lvl (test code = Calcium Lvl) 8.6 8.5-10.5 [facility]2020-06-09 06:56:00 Test Item Value Reference Range Interpretation Comments B/C Ratio (test code = B/C Ratio) 14 1 6-25 [facility]2020-06-09 06:56:00 Test Item Value Reference Range Interpretation Comments Total Protein (test code = Total 7.0 6.4-8.4 Protein) [facility] [id number] 21:56:00 Test Item Value Reference Range Interpretation Comments Culture: Urine (test code = No Growth Culture: Urine) [facility] [id number] 21:56:00 Test Item Value Reference Range Interpretation Comments Culture: Urine (test code = No Growth Culture: Urine) [facility] AND [id number] 21:09:00 Test Item Value Reference Range Interpretation Comments UA Color (test code = Yellow *NA*(03/31/20 4:09 UA Color) PM) [facility] AND [id number] 21:09:00 Test Item Value Reference Range Interpretation Comments UA Turbidity (test code Marked *ABN*(03/31/20 = UA Turbidity) 4:09 PM) [facility] AND [id number] 21:09:00 Test Item Value Reference Range Interpretation Comments UA Spec Grav (test code = UA Spec 1.009 1 Grav) [facility] AND [id number] 21:09:00 Test Item Value Reference Range Interpretation Comments UA pH (test code = UA pH) 5.0 1 5.0-8.0 [facility] AND [id number] 21:09:00 Test Item Value Reference Range Interpretation Comments UA Protein (test code = UA Protein) 30 mg/dL [facility] AND [id number] 21:09:00 Test Item Value Reference Range Interpretation Comments UA Glucose (test code = UA Negative mg/dL Glucose) [facility] AND [id number] 21:09:00 Test Item Value Reference Range Interpretation Comments UA Ketones (test code = UA Negative mg/dL Ketones) [facility] AND [id number] 21:09:00 Test Item Value Reference Range Interpretation Comments UA Bili (test code = Negative *NA*(03/31/20 UA Bili) 4:09 PM) [facility] AND [id number] 21:09:00 Test Item Value Reference Range Interpretation Comments UA Blood (test code = Moderate *ABN*(03/31/20 UA Blood) 4:09 PM) [facility] AND [id number] 21:09:00 Test Item Value Reference Range Interpretation Comments UA Urobilinogen (test code = UA no gt 0.1-1.0 Urobilinogen) [facility] AND [id number] 21:09:00 Test Item Value Reference Range Interpretation Comments UA Nitrite (test code Negative (03/31/20 4:09 = UA Nitrite) PM) [facility] AND [id number] 21:09:00 Test Item Value Reference Range Interpretation Comments UA Leuk Est (test code Trace *ABN*(03/31/20 4:09 = UA Leuk Est) PM) [facility] AND [id number] 21:09:00 Test Item Value Reference Range Interpretation Comments UA WBC (test code = 29 See_Comment [Automa lawson message] The UA WBC) system which ge nerated this result transmit lawson reference range : <=5. The reference range was not used to interpr et this result as alejandra l/abnormal. [facility] [id number] 21:09:00 Test Item Value Reference Range Interpretation Comments UA RBC (test code = 10 See_Comment [Automa lawson message] The UA RBC) system which ge nerated this result transmit lawson reference range : <=2. The reference range was not used to interpr et this result as alejandra l/abnormal. [facility] [id number] 21:09:00 Test Item Value Reference Range Interpretation Comments UA Bacteria (test code = UA Occasional /HPF Bacteria) [facility] [id number] 21:09:00 Test Item Value Reference Range Interpretation Comments UA Mucus (test code = UA Mucus) Few /LPF [facility] [id number] 21:09:00 Test Item Value Reference Range Interpretation Comments UA Amorph Kya (test code = UA Few /HPF Amorph Kya) [facility] [id number] 21:09:00 Test Item Value Reference Range Interpretation Comments UA Gran Cast (test code = UA Gran 6-10 /LPF Cast) [facility] [id number] 21:09:00 Test Item Value Reference Range Interpretation Comments UA Sq Epi (test code = UA Sq Epi) None [facility]en [facility] [id number] 21:09:00 Test Item Value Reference Range Interpretation Comments UA Color (test code = Yellow *NA*(03/31/20 4:09 UA Color) PM) [facility] [id number] 21:09:00 Test Item Value Reference Range Interpretation Comments UA Turbidity (test code Marked *ABN*(03/31/20 = UA Turbidity) 4:09 PM) [facility] [id number] 21:09:00 Test Item Value Reference Range Interpretation Comments UA Spec Grav (test code = UA Spec 1.009 1 Grav) [facility] [id number] 21:09:00 Test Item Value Reference Range Interpretation Comments UA pH (test code = UA pH) 5.0 1 5.0-8.0 [facility] [id number] 21:09:00 Test Item Value Reference Range Interpretation Comments UA Protein (test code = UA Protein) 30 mg/dL [facility] AND [id number] 21:09:00 Test Item Value Reference Range Interpretation Comments UA Glucose (test code = UA Negative mg/dL Glucose) [facility] AND [id number] 21:09:00 Test Item Value Reference Range Interpretation Comments UA Ketones (test code = UA Negative mg/dL Ketones) [facility] AND [id number] 21:09:00 Test Item Value Reference Range Interpretation Comments UA Bili (test code = Negative *NA*(03/31/20 UA Bili) 4:09 PM) [facility] AND [id number] 21:09:00 Test Item Value Reference Range Interpretation Comments UA Blood (test code = Moderate *ABN*(03/31/20 UA Blood) 4:09 PM) [facility] AND [id number] 21:09:00 Test Item Value Reference Range Interpretation Comments UA Urobilinogen (test code = UA no gt 0.1-1.0 Urobilinogen) [facility] AND [id number] 21:09:00 Test Item Value Reference Range Interpretation Comments UA Nitrite (test code Negative (03/31/20 4:09 = UA Nitrite) PM) [facility] AND [id number] 21:09:00 Test Item Value Reference Range Interpretation Comments UA Leuk Est (test code Trace *ABN*(03/31/20 4:09 = UA Leuk Est) PM) [facility] AND [id number] 21:09:00 Test Item Value Reference Range Interpretation Comments UA WBC (test code = 29 See_Comment [Automa lawson message] The UA WBC) system which ge nerated this result transmit lawson reference range : <=5. The reference range was not used to interpr et this result as alejandra l/abnormal. [facility] AND [id number] 21:09:00 Test Item Value Reference Range Interpretation Comments UA RBC (test code = 10 See_Comment [Automa lawson message] The UA RBC) system which ge nerated this result transmit lawson reference range : <=2. The reference range was not used to interpr et this result as alejandra l/abnormal. [facility] AND [id number] 21:09:00 Test Item Value Reference Range Interpretation Comments UA Bacteria (test code = UA Occasional /HPF Bacteria) [facility] AND [id number] 21:09:00 Test Item Value Reference Range Interpretation Comments UA Mucus (test code = UA Mucus) Few /LPF [facility] [id number] 21:09:00 Test Item Value Reference Range Interpretation Comments UA Amorph Kya (test code = UA Few /HPF Amorph Kya) [facility] AND [id number] 21:09:00 Test Item Value Reference Range Interpretation Comments UA Gran Cast (test code = UA Gran 6-10 /LPF Cast) [facility] AND [id number] 21:09:00 Test Item Value Reference Range Interpretation Comments UA Sq Epi (test code = UA Sq Epi) None Seen [facility]2020-06-08 09:44:00 Test Item Value Reference Range Interpretation Comments Glucose Lvl (test code = Glucose Lvl) 173 70-99 [facility]2020-06-08 09:44:00 Test Item Value Reference Range Interpretation Comments BUN (test code = BUN) 92 7-22 [facility]2020-06-08 09:44:00 Test Item Value Reference Range Interpretation Comments Creatinine Lvl (test code = Creatinine 6.26 0.50-1.40 Lvl) [facility]2020-06-08 09:44:00 Test Item Value Reference Range Interpretation Comments Sodium Lvl (test code = Sodium Lvl) 133 135-145 [facility]2020-06-08 09:44:00 Test Item Value Reference Range Interpretation Comments Potassium Lvl (test code = Potassium 4.5 3.5-5.1 Lvl) [facility]2020-06-08 09:44:00 Test Item Value Reference Range Interpretation Comments Chloride Lvl (test code = Chloride Lvl) 98 95-109 [facility]2020-06-08 09:44:00 Test Item Value Reference Range Interpretation Comments CO2 (test code = CO2) 22 24-32 [facility]2020-06-08 09:44:00 Test Item Value Reference Range Interpretation Comments Calcium Lvl (test code = Calcium Lvl) 8.3 8.5-10.5 [place] 282240-06-08 09:44:00 Test Item Value Reference Range Interpretation Comments Total Protein (test code = Total 6.7 6.4-8.4 Protein) [facility] [employer] [id number] 09:44:00 Test Item Value Reference Range Interpretation Comments Albumin Lvl (test code = Albumin Lvl) 2.4 3.5-5.0 [facility] [employer] [id number] 09:44:00 Test Item Value Reference Range Interpretation Comments ALT (test code = ALT) 110 See_Comment [Auto mated message] The system which ge nerated this result transmit lawson reference range : <=65. The reference range was not used to interpr et this result as alejandra l/abnormal. [facility] [employer] [id number] 09:44:00 Test Item Value Reference Range Interpretation Comments AST (test code = AST) 63 See_Comment [Auto mated message] The system which ge nerated this result transmit lawson reference range : <=37. The reference range was not used to interpr et this result as alejandra l/abnormal. [facility] [employer] [id number] 09:44:00 Test Item Value Reference Range Interpretation Comments Alk Phos (test code = Alk Phos) 41 39-136 [facility] [employer] [id number] 09:44:00 Test Item Value Reference Range Interpretation Comments Bili Total (test code = Bili Total) 0.3 0.2-1.3 [facility] [employer] [id number] 09:44:00 Test Item Value Reference Range Interpretation Comments AGAP (test code = AGAP) 17.5 10.0-20.0 [facility] [employer] [id number] 09:44:00 Test Item Value Reference Range Interpretation Comments B/C Ratio (test code = B/C Ratio) 15 1 6-25 [facility] [employer] [id number] 09:44:00 Test Item Value Reference Range Interpretation Comments Globulin (test code = Globulin) 4.3 2.7-4.2 [facility] [employer] [id number] 09:44:00 Test Item Value Reference Range Interpretation Comments A/G Ratio (test code = A/G Ratio) 0.6 1 0.7-1.6 [facility] [employer] [id number] 09:44:00 Test Item Value Reference Range Interpretation Comments eGFR (test code = eGFR) 9 [facility] [id number] 09:44:00 Test Item Value Reference Range Interpretation Comments Phosphorus (test code = Phosphorus) 5.8 2.5-4.5 [facility] [id number] 09:44:00 Test Item Value Reference Range Interpretation Comments Magnesium Lvl (test code = Magnesium 2.9 1.8-2.4 Lvl) [facility] H[id number] 09:44:00 Test Item Value Reference Range Interpretation Comments Segs (test code = Segs) 78.4 45.0-75.0 [place] [address]-06-08 09:44:00 Test Item Value Reference Range Interpretation Comments Lymphocytes (test code = Lymphocytes) 8.7 20.0-40.0 [place] [address]-06-08 09:44:00 Test Item Value Reference Range Interpretation Comments Monocytes (test code = Monocytes) 11.3 2.0-12.0 [place] [address]-06-08 09:44:00 Test Item Value Reference Range Interpretation Comments Eosinophils (test code = 1.2 See_Comment [A utomated message] The Eosinophils) system which ge nerated this result tra nsmitted reference range : <=4.0. The reference r pau was not used to int erpret this result as normal/abnormal . [place] [address]-06-08 09:44:00 Test Item Value Reference Range Interpretation Comments Basophils (test code = 0.4 See_Comment [Aut omated message] The Basophils) system which ge nerated this result tra nsmitted reference range : <=1.0. The reference r pau was not used to int erpret this result as normal/abnormal . [place] 439150-06-08 09:44:00 Test Item Value Reference Range Interpretation Comments Neutrophils # (test code = Neutrophils 9.6 1.5-8.1 #) [place] 439150-06-08 09:44:00 Test Item Value Reference Range Interpretation Comments Lymphocytes # (test code = Lymphocytes 1.1 1.0-5.5 #) [place] 439150-06-08 09:44:00 Test Item Value Reference Range Interpretation Comments Monocytes # (test code 1.4 See_Comment [Aut omated message] The = Monocytes #) system which generated this result tra nsmitted reference range : <=0.8. The reference r pau was not used to int erpret this result as normal/abnormal . [facility] [id number] 09:44:00 Test Item Value Reference Range Interpretation Comments Eosinophils # (test code 0.1 See_Comment [A utomated message] The = Eosinophils #) system whic h generated this result tra nsmitted reference range : <=0.5. The reference r pau was not used to int erpret this result as normal/abnormal . [facility] HospitalNvvvkjwSZPROCZXPV0193-00-40 09:44:00 Test Item Value Reference Range Interpretation Comments WBC (test code = WBC) 12.2 3.7-10.4 [facility] HospitalUdifcatPUFNLQBCYK6056-47-05 09:44:00 Test Item Value Reference Range Interpretation Comments RBC (test code = RBC) 3.68 4.70-6.10 [facility] HospitalZvvkshuMCTSABMDWP1345-49-60 09:44:00 Test Item Value Reference Range Interpretation Comments Hgb (test code = Hgb) 11.5 14.0-18.0 [facility] HospitalQchcnzsREOYMZETMV7436-37-63 09:44:00 Test Item Value Reference Range Interpretation Comments Hct (test code = Hct) 33.3 42.0-54.0 [facility] HospitalDdtumzrVILHRHGZMP5736-23-41 09:44:00 Test Item Value Reference Range Interpretation Comments MCV (test code = MCV) 90.4 80.0-94.0 [facility] HospitalHzazlzkLAEZYOQSUM4689-27-26 09:44:00 Test Item Value Reference Range Interpretation Comments MCH (test code = MCH) 31.3 pg 27.0-31.0 [facility] HospitalUavfmaqYTKAFMVDXJ2829-75-54 09:44:00 Test Item Value Reference Range Interpretation Comments MCHC (test code = MCHC) 34.6 32.0-36.0 [facility] HospitalNrssrlnPFOPVWJQSN2890-90-38 09:44:00 Test Item Value Reference Range Interpretation Comments RDW (test code = RDW) 14.1 11.5-14.5 [facility] HospitalJyddpqeBXXKOGHZSL4472-43-95 09:44:00 Test Item Value Reference Range Interpretation Comments Platelet (test code = Platelet) 217 133-450 [facility] HospitalJkwadfrRANNGXGVLT1592-48-56 09:44:00 Test Item Value Reference Range Interpretation Comments MPV (test code = MPV) 8.6 7.4-10.4 [place] 282240-06-08 09:44:00 Test Item Value Reference Range Interpretation Comments Glucose Lvl (test code = Glucose Lvl) 173 70-99 [place] 282240-06-08 09:44:00 Test Item Value Reference Range Interpretation Comments BUN (test code = BUN) 92 7-22 [place] 282240-06-08 09:44:00 Test Item Value Reference Range Interpretation Comments Creatinine Lvl (test code = Creatinine 6.26 0.50-1.40 Lvl) [place] [address]-06-08 09:44:00 Test Item Value Reference Range Interpretation Comments Sodium Lvl (test code = Sodium Lvl) 133 135-145 [place] [address]-06-08 09:44:00 Test Item Value Reference Range Interpretation Comments Potassium Lvl (test code = Potassium 4.5 3.5-5.1 Lvl) [place] 282240-06-08 09:44:00 Test Item Value Reference Range Interpretation Comments Chloride Lvl (test code = Chloride Lvl) 98 95-109 [place] 282240-06-08 09:44:00 Test Item Value Reference Range Interpretation Comments CO2 (test code = CO2) 22 24-32 [place] [address]-06-08 09:44:00 Test Item Value Reference Range Interpretation Comments Calcium Lvl (test code = Calcium Lvl) 8.3 8.5-10.5 [place] 282240-06-08 09:44:00 Test Item Value Reference Range Interpretation Comments Total Protein (test code = Total 6.7 6.4-8.4 Protein) [place] 282240-06-08 09:44:00 Test Item Value Reference Range Interpretation Comments Albumin Lvl (test code = Albumin Lvl) 2.4 3.5-5.0 [place] 282240-06-08 09:44:00 Test Item Value Reference Range Interpretation Comments ALT (test code = ALT) 110 See_Comment [Auto mated message] The system which ge nerated this result transmit lawson reference range : <=65. The reference range was not used to interpr et this result as alejandra l/abnormal. [facility] [id number] 09:44:00 Test Item Value Reference Range Interpretation Comments AST (test code = AST) 63 See_Comment [Auto mated message] The system which ge nerated this result transmit lawson reference range : <=37. The reference range was not used to interpr et this result as alejandra l/abnormal. [facility] [id number] 09:44:00 Test Item Value Reference Range Interpretation Comments Alk Phos (test code = Alk Phos) 41 39-136 [facility] [id number] 09:44:00 Test Item Value Reference Range Interpretation Comments Bili Total (test code = Bili Total) 0.3 0.2-1.3 [facility] [id number] 09:44:00 Test Item Value Reference Range Interpretation Comments AGAP (test code = AGAP) 17.5 10.0-20.0 [facility] [id number] 09:44:00 Test Item Value Reference Range Interpretation Comments B/C Ratio (test code = B/C Ratio) 15 1 6-25 [facility] [id number] 09:44:00 Test Item Value Reference Range Interpretation Comments Globulin (test code = Globulin) 4.3 2.7-4.2 [facility] [id number] 09:44:00 Test Item Value Reference Range Interpretation Comments A/G Ratio (test code = A/G Ratio) 0.6 1 0.7-1.6 [facility] [id number] 09:44:00 Test Item Value Reference Range Interpretation Comments eGFR (test code = eGFR) 9 [facility] [id number] 09:44:00 Test Item Value Reference Range Interpretation Comments Phosphorus (test code = Phosphorus) 5.8 2.5-4.5 [facility] [id number] 09:44:00 Test Item Value Reference Range Interpretation Comments Magnesium Lvl (test code = Magnesium 2.9 1.8-2.4 Lvl) [id number] 09:44:00 Test Item Value Reference Range Interpretation Comments Segs (test code = Segs) 78.4 45.0-75.0 [facility] HospitalBtnehoiIRUSJZQOJQ4079-08-03 09:44:00 Test Item Value Reference Range Interpretation Comments Lymphocytes (test code = Lymphocytes) 8.7 20.0-40.0 [facility] HospitalBhjmojzHVIWGXHJKE7159-32-63 09:44:00 Test Item Value Reference Range Interpretation Comments Monocytes (test code = Monocytes) 11.3 2.0-12.0 [facility] HospitalJnafujqBRERFPTELO1786-26-18 09:44:00 Test Item Value Reference Range Interpretation Comments Eosinophils (test code = 1.2 See_Comment [A utomated message] The Eosinophils) system which ge nerated this result tra nsmitted reference range : <=4.0. The reference r pau was not used to int erpret this result as normal/abnormal . [facility] HospitalRwcjnhsMPFNGNACQV1257-00-50 09:44:00 Test Item Value Reference Range Interpretation Comments Basophils (test code = 0.4 See_Comment [Aut omated message] The Basophils) system which ge nerated this result tra nsmitted reference range : <=1.0. The reference r pau was not used to int erpret this result as normal/abnormal . [facility] HospitalCytitrcYKSDPPULSG2704-94-63 09:44:00 Test Item Value Reference Range Interpretation Comments Neutrophils # (test code = Neutrophils 9.6 1.5-8.1 #) [facility] HospitalXzqpqrpJMTQVJLEQK3107-16-66 09:44:00 Test Item Value Reference Range Interpretation Comments Lymphocytes # (test code = Lymphocytes 1.1 1.0-5.5 #) [facility] HospitalMnkvqhtQZVNQLZTOL4726-17-71 09:44:00 Test Item Value Reference Range Interpretation Comments Monocytes # (test code 1.4 See_Comment [Aut omated message] The = Monocytes #) system which generated this result tra nsmitted reference range : <=0.8. The reference r pau was not used to int erpret this result as normal/abnormal . [facility] HospitalVqeqzcaCBCVTHMTUV2372-55-32 09:44:00 Test Item Value Reference Range Interpretation Comments Eosinophils # (test code 0.1 See_Comment [A utomated message] The = Eosinophils #) system whic h generated this result tra nsmitted reference range : <=0.5. The reference r pau was not used to int erpret this result as normal/abnormal . [facility] HospitalMvnvvfoYZBMBNRBUU1010-66-14 09:44:00 Test Item Value Reference Range Interpretation Comments WBC (test code = WBC) 12.2 3.7-10.4 [facility] HospitalGkqwjkmJAKVGEATKR0191-98-83 09:44:00 Test Item Value Reference Range Interpretation Comments RBC (test code = RBC) 3.68 4.70-6.10 [facility] HospitalTwooxnqOXJTURGCZT7240-95-74 09:44:00 Test Item Value Reference Range Interpretation Comments Hgb (test code = Hgb) 11.5 14.0-18.0 [facility] HospitalYrmihznSTMGUDPOTO5757-30-40 09:44:00 Test Item Value Reference Range Interpretation Comments Hct (test code = Hct) 33.3 42.0-54.0 [facility] HospitalYdvtgboAVXCMTVPQI0026-04-40 09:44:00 Test Item Value Reference Range Interpretation Comments MCV (test code = MCV) 90.4 80.0-94.0 [facility] HospitalRmbjzroBGYOBCNWLA8743-27-15 09:44:00 Test Item Value Reference Range Interpretation Comments MCH (test code = MCH) 31.3 pg 27.0-31.0 [facility] HospitalGgupcudTCWTNXVCAR0436-85-99 09:44:00 Test Item Value Reference Range Interpretation Comments MCHC (test code = MCHC) 34.6 32.0-36.0 [facility] HospitalDdxagkvQSOUBUSQHO5793-73-81 09:44:00 Test Item Value Reference Range Interpretation Comments RDW (test code = RDW) 14.1 11.5-14.5 [facility] HospitalKfswqkqKIKUBTFSDZ3627-01-36 09:44:00 Test Item Value Reference Range Interpretation Comments Platelet (test code = Platelet) 217 133-450 [facility] HospitalQecarnqCOHTCJTZTT2399-42-31 09:44:00 Test Item Value Reference Range Interpretation Comments MPV (test code = MPV) 8.6 7.4-10.4 [facility] [id number] 08:02:00 Test Item Value Reference Range Interpretation Comments Phosphorus (test code = Phosphorus) 4.6 2.5-4.5 [facility] [id number] 08:02:00 Test Item Value Reference Range Interpretation Comments Magnesium Lvl (test code = Magnesium 2.7 1.8-2.4 Lvl) [facility] [id number] 08:02:00 Test Item Value Reference Range Interpretation Comments Glucose Lvl (test code = Glucose Lvl) 161 70-99 [place] 282240-06-07 08:02:00 Test Item Value Reference Range Interpretation Comments BUN (test code = BUN) 68 7-22 [place] 282240-06-07 08:02:00 Test Item Value Reference Range Interpretation Comments Creatinine Lvl (test code = Creatinine 5.36 0.50-1.40 Lvl) [place] 282240-06-07 08:02:00 Test Item Value Reference Range Interpretation Comments Sodium Lvl (test code = Sodium Lvl) 136 135-145 [place] [address]-06-07 08:02:00 Test Item Value Reference Range Interpretation Comments Potassium Lvl (test code = Potassium 4.3 3.5-5.1 Lvl) [place] 282240-06-07 08:02:00 Test Item Value Reference Range Interpretation Comments Chloride Lvl (test code = Chloride Lvl) 102 95-109 [place] 282240-06-07 08:02:00 Test Item Value Reference Range Interpretation Comments CO2 (test code = CO2) 25 24-32 [place] 282240-06-07 08:02:00 Test Item Value Reference Range Interpretation Comments Calcium Lvl (test code = Calcium Lvl) 8.3 8.5-10.5 [place] 282240-06-07 08:02:00 Test Item Value Reference Range Interpretation Comments Total Protein (test code = Total 6.4 6.4-8.4 Protein) [place] 282240-06-07 08:02:00 Test Item Value Reference Range Interpretation Comments Albumin Lvl (test code = Albumin Lvl) 2.3 3.5-5.0 [place] 282240-06-07 08:02:00 Test Item Value Reference Range Interpretation Comments ALT (test code = ALT) 116 See_Comment [Auto mated message] The system which ge nerated this result transmit lawson reference range : <=65. The reference range was not used to interpr et this result as alejandra l/abnormal. [place] 282240-06-07 08:02:00 Test Item Value Reference Range Interpretation Comments AST (test code = AST) 68 See_Comment [Auto mated message] The system which ge nerated this result transmit lawson reference range : <=37. The reference range was not used to interpr et this result as alejandra l/abnormal. [facility] [id number] 08:02:00 Test Item Value Reference Range Interpretation Comments Alk Phos (test code = Alk Phos) 37 39-136 [place] [address]-06-07 08:02:00 Test Item Value Reference Range Interpretation Comments Bili Total (test code = Bili Total) 0.3 0.2-1.3 [place] [address]-06-07 08:02:00 Test Item Value Reference Range Interpretation Comments AGAP (test code = AGAP) 13.3 10.0-20.0 [facility] [id number] 08:02:00 Test Item Value Reference Range Interpretation Comments B/C Ratio (test code = B/C Ratio) 13 1 6-25 [facility] [id number] 08:02:00 Test Item Value Reference Range Interpretation Comments Globulin (test code = Globulin) 4.1 2.7-4.2 [facility] [id number] 08:02:00 Test Item Value Reference Range Interpretation Comments A/G Ratio (test code = A/G Ratio) 0.6 1 0.7-1.6 [facility] [id number] 08:02:00 Test Item Value Reference Range Interpretation Comments eGFR (test code = eGFR) 11 [place] 439150-06-07 08:02:00 Test Item Value Reference Range Interpretation Comments WBC (test code = WBC) 11.6 3.7-10.4 [place] [address]-06-07 08:02:00 Test Item Value Reference Range Interpretation Comments RBC (test code = RBC) 3.72 4.70-6.10 [place] [address]-06-07 08:02:00 Test Item Value Reference Range Interpretation Comments Hgb (test code = Hgb) 11.7 14.0-18.0 [place] [address]-06-07 08:02:00 Test Item Value Reference Range Interpretation Comments Hct (test code = Hct) 34.1 42.0-54.0 [place] [address]-06-07 08:02:00 Test Item Value Reference Range Interpretation Comments MCV (test code = MCV) 91.6 80.0-94.0 [facility] HospitalDrwczzzTDOIDCXQAN0468-62-77 08:02:00 Test Item Value Reference Range Interpretation Comments MCH (test code = MCH) 31.5 pg 27.0-31.0 [facility] HospitalGwsvyqmLDPJIBSGFK7556-62-22 08:02:00 Test Item Value Reference Range Interpretation Comments MCHC (test code = MCHC) 34.4 32.0-36.0 [facility] HospitalGznwxqzWDIKLCZOEG7282-65-62 08:02:00 Test Item Value Reference Range Interpretation Comments RDW (test code = RDW) 14.0 11.5-14.5 [facility] HospitalAlytojbSGYINLCGZX2035-45-56 08:02:00 Test Item Value Reference Range Interpretation Comments Platelet (test code = Platelet) 215 133-450 [facility] HospitalDmetudiLSCYPKZJUC5218-64-90 08:02:00 Test Item Value Reference Range Interpretation Comments MPV (test code = MPV) 9.6 7.4-10.4 [facility] HospitalJykcrspQCGYTEYTMK4803-20-39 08:02:00 Test Item Value Reference Range Interpretation Comments RBC Morph (test code = Normal (03/30/20 3:02 AM) RBC Morph) [facility] HospitalGmwzesxSRSLYSCKFQ2048-50-30 08:02:00 Test Item Value Reference Range Interpretation Comments Plt Morph (test code = Normal (03/30/20 3:02 AM) Plt Morph) [facility] [facility]TEKQF5413-29-13 08:02:00 Test Item Value Reference Range Interpretation Comments Segs (test code = Segs) 78.0 45.0-75.0 [facility] HospitalGgempwiTDCVLCELEA7121-81-35 08:02:00 Test Item Value Reference Range Interpretation Comments Lymphocytes (test code = Lymphocytes) 9.0 20.0-40.0 [facility] HospitalVpipvgaPDKZCWTTYH9501-84-57 08:02:00 Test Item Value Reference Range Interpretation Comments Monocytes (test code = Monocytes) 11.0 2.0-12.0 [place] [address]-06-07 08:02:00 Test Item Value Reference Range Interpretation Comments Eosinophils (test code = 2.0 See_Comment [A utomated message] The Eosinophils) system which ge nerated this result tra nsmitted reference range : <=4.0. The reference r pau was not used to int erpret this result as normal/abnormal . [place] [address]-06-07 08:02:00 Test Item Value Reference Range Interpretation Comments Basophils (test code = 0.0 See_Comment [Aut omated message] The Basophils) system which ge nerated this result tra nsmitted reference range : <=1.0. The reference r pau was not used to int erpret this result as normal/abnormal . [place]150-06-07 08:02:00 Test Item Value Reference Range Interpretation Comments Neutrophils # (test code = Neutrophils 9.1 1.5-8.1 #) [facility] HospitalIuakwmbJPTYZPDPOF1640-97-63 08:02:00 Test Item Value Reference Range Interpretation Comments Lymphocytes # (test code = Lymphocytes 0.9 1.0-5.5 #) [place] 439150-06-07 08:02:00 Test Item Value Reference Range Interpretation Comments Monocytes # (test code 1.3 See_Comment [Aut omated message] The = Monocytes #) system which generated this result tra nsmitted reference range : <=0.8. The reference r pau was not used to int erpret this result as normal/abnormal . [facility] HospitalWhzguqdSFBCKXMQRI6957-38-45 08:02:00 Test Item Value Reference Range Interpretation Comments Eosinophils # (test code 0.2 See_Comment [A utomated message] The = Eosinophils #) system whic h generated this result tra nsmitted reference range : <=0.5. The reference r pau was not used to int erpret this result as normal/abnormal . [facility] GZHCG5365-[facility]-08 08:02:00 Test Item Value Reference Range Interpretation Comments Phosphorus (test code = Phosphorus) 4.6 2.5-4.5 [place] [address]-06-07 08:02:00 Test Item Value Reference Range Interpretation Comments Magnesium Lvl (test code = Magnesium 2.7 1.8-2.4 Lvl) [place] 282240-06-07 08:02:00 Test Item Value Reference Range Interpretation Comments Glucose Lvl (test code = Glucose Lvl) 161 70-99 [place] [address]-06-07 08:02:00 Test Item Value Reference Range Interpretation Comments BUN (test code = BUN) 68 7-22 [facility] EHEEY8829-76-40 08:02:00 Test Item Value Reference Range Interpretation Comments Creatinine Lvl (test code = Creatinine 5.36 0.50-1.40 Lvl) [place] 282240-06-07 08:02:00 Test Item Value Reference Range Interpretation Comments Sodium Lvl (test code = Sodium Lvl) 136 135-145 [place] 282240-06-07 08:02:00 Test Item Value Reference Range Interpretation Comments Potassium Lvl (test code = Potassium 4.3 3.5-5.1 Lvl) [place] 282240-06-07 08:02:00 Test Item Value Reference Range Interpretation Comments Chloride Lvl (test code = Chloride Lvl) 102 95-109 [place] 282240-06-07 08:02:00 Test Item Value Reference Range Interpretation Comments CO2 (test code = CO2) 25 24-32 [place] 282240-06-07 08:02:00 Test Item Value Reference Range Interpretation Comments Calcium Lvl (test code = Calcium Lvl) 8.3 8.5-10.5 [place] 282240-06-07 08:02:00 Test Item Value Reference Range Interpretation Comments Total Protein (test code = Total 6.4 6.4-8.4 Protein) [place] 282240-06-07 08:02:00 Test Item Value Reference Range Interpretation Comments Albumin Lvl (test code = Albumin Lvl) 2.3 3.5-5.0 [place] 282240-06-07 08:02:00 Test Item Value Reference Range Interpretation Comments ALT (test code = ALT) 116 See_Comment [Auto mated message] The system which ge nerated this result transmit lawson reference range : <=65. The reference range was not used to interpr et this result as alejandra l/abnormal. [place] 282240-06-07 08:02:00 Test Item Value Reference Range Interpretation Comments AST (test code = AST) 68 See_Comment [Auto mated message] The system which ge nerated this result transmit lawson reference range : <=37. The reference range was not used to interpr et this result as alejandra l/abnormal. [place] [address]-06-07 08:02:00 Test Item Value Reference Range Interpretation Comments Alk Phos (test code = Alk Phos) 37 39-136 [facility]2020-06-07 08:02:00 Test Item Value Reference Range Interpretation Comments Bili Total (test code = Bili Total) 0.3 0.2-1.3 [facility]2020-06-07 08:02:00 Test Item Value Reference Range Interpretation Comments AGAP (test code = AGAP) 13.3 10.0-20.0 [facility]2020-06-07 08:02:00 Test Item Value Reference Range Interpretation Comments B/C Ratio (test code = B/C Ratio) 13 1 6-25 [place] 282240-06-07 08:02:00 Test Item Value Reference Range Interpretation Comments Globulin (test code = Globulin) 4.1 2.7-4.2 [place] 282240-06-07 08:02:00 Test Item Value Reference Range Interpretation Comments A/G Ratio (test code = A/G Ratio) 0.6 1 0.7-1.6 [place] [address]-06-07 08:02:00 Test Item Value Reference Range Interpretation Comments eGFR (test code = eGFR) 11 [facility] HospitalDvfavejYRIBNUHOKO7374-39-16 08:02:00 Test Item Value Reference Range Interpretation Comments WBC (test code = WBC) 11.6 3.7-10.4 [place] 439150-06-07 08:02:00 Test Item Value Reference Range Interpretation Comments RBC (test code = RBC) 3.72 4.70-6.10 [place] 439150-06-07 08:02:00 Test Item Value Reference Range Interpretation Comments Hgb (test code = Hgb) 11.7 14.0-18.0 [place] [address]-06-07 08:02:00 Test Item Value Reference Range Interpretation Comments Hct (test code = Hct) 34.1 42.0-54.0 [place] 439150-06-07 08:02:00 Test Item Value Reference Range Interpretation Comments MCV (test code = MCV) 91.6 80.0-94.0 [place] 439150-06-07 08:02:00 Test Item Value Reference Range Interpretation Comments MCH (test code = MCH) 31.5 pg 27.0-31.0 [place] [address]-06-07 08:02:00 Test Item Value Reference Range Interpretation Comments MCHC (test code = MCHC) 34.4 32.0-36.0 [place] 439150-06-07 08:02:00 Test Item Value Reference Range Interpretation Comments RDW (test code = RDW) 14.0 11.5-14.5 [place] 439150-06-07 08:02:00 Test Item Value Reference Range Interpretation Comments Platelet (test code = Platelet) 215 133-450 [facility] HospitalElffptkEACOLLRKAF6696-09-34 08:02:00 Test Item Value Reference Range Interpretation Comments MPV (test code = MPV) 9.6 7.4-10.4 [place] 439150-06-07 08:02:00 Test Item Value Reference Range Interpretation Comments RBC Morph (test code = Normal (03/30/20 3:02 AM) RBC Morph) [facility] HospitalFrlizxtMFHUBAZIIW6039-38-61 08:02:00 Test Item Value Reference Range Interpretation Comments Plt Morph (test code = Normal (03/30/20 3:02 AM) Plt Morph) [facility] HospitalGhrsuwqIBNTBIXZMW2981-78-74 08:02:00 Test Item Value Reference Range Interpretation Comments Segs (test code = Segs) 78.0 45.0-75.0 [facility] HospitalGskdrwfPZJUQOYQAH7731-84-82 08:02:00 Test Item Value Reference Range Interpretation Comments Lymphocytes (test code = Lymphocytes) 9.0 20.0-40.0 [place] 439150-06-07 08:02:00 Test Item Value Reference Range Interpretation Comments Monocytes (test code = Monocytes) 11.0 2.0-12.0 [place] [address]-06-07 08:02:00 Test Item Value Reference Range Interpretation Comments Eosinophils (test code = 2.0 See_Comment [A utomated message] The Eosinophils) system which ge nerated this result tra nsmitted reference range : <=4.0. The reference r pau was not used to int erpret this result as normal/abnormal . [place] [address]-06-07 08:02:00 Test Item Value Reference Range Interpretation Comments Basophils (test code = 0.0 See_Comment [Aut omated message] The Basophils) system which ge nerated this result tra nsmitted reference range : <=1.0. The reference r pau was not used to int erpret this result as normal/abnormal . [facility]GG[facility]TV[facility]GP9965[facility]-98 08:02:00 Test Item Value Reference Range Interpretation Comments Neutrophils # (test code = Neutrophils 9.1 1.5-8.1 #) [facility] HospitalAfajbtuNDQYFTIXGH0014-59-91 08:02:00 Test Item Value Reference Range Interpretation Comments Lymphocytes # (test code = Lymphocytes 0.9 1.0-5.5 #) [facility] HospitalGfyhobtGLSXPYWIZQ0748-54-58 08:02:00 Test Item Value Reference Range Interpretation Comments Monocytes # (test code 1.3 See_Comment [Aut omated message] The = Monocytes #) system which generated this result tra nsmitted reference range : <=0.8. The reference r pau was not used to int erpret this result as normal/abnormal . [facility] HospitalPirayslTFONFKPTDR3144-79-14 08:02:00 Test Item Value Reference Range Interpretation Comments Eosinophils # (test code 0.2 See_Comment [A utomated message] The = Eosinophils #) system whic h generated this result tra nsmitted reference range : <=0.5. The reference r pau was not used to int erpret this result as normal/abnormal . [facility] VZXMOWI9845-00-27 05:45:00 Test Item Value Reference Range Interpretation Comments Total CK (test code = Total CK) 834 12-191 [facility] HospitalMrfmbufIBQZDTVKKB3918-52-40 05:45:00 Test Item Value Reference Range Interpretation Comments Basophils # (test code 0.1 See_Comment [Aut omated message] The = Basophils #) system which generated this result tra nsmitted reference range : <=0.2. The reference r pau was not used to int erpret this result as normal/abnormal . [facility] IEJLJRW6309-04-19 05:45:00 Test Item Value Reference Range Interpretation Comments Total CK (test code = Total CK) 834 12-191 [facility] HospitalGzxhuweQLYOEJKUVB3401-29-12 05:45:00 Test Item Value Reference Range Interpretation Comments Basophils # (test code 0.1 See_Comment [Aut omated message] The = Basophils #) system which generated this result tra nsmitted reference range : <=0.2. The reference r pau was not used to int erpret this result as normal/abnormal . [facility] DPEWXHU4671-98-82 05:59:00 Test Item Value Reference Range Interpretation Comments Total CK (test code = Total CK) 669 [facility] CDLBSDB9407-19-10 05:59:00 Test Item Value Reference Range Interpretation Comments Total CK (test code = Total CK) 658 [facility] [employer] A/S IAKYC7447-28-41 05:59:00 Test Item Value Reference Range Interpretation Comments Procalcitonin Lvl (test 2.37 See_Comment [Au tomated message] code = Procalcitonin Lvl) Th e system which generated this result transmitted ref erence range: <=0.10. The reference range was not used to interpr et this result as normal/abnormal . [facility] CloudGenixannPARATHYROID NFLOZGP4318-06-36 05:59:00 Test Item Value Reference Range Interpretation Comments Ca Ion WB (test code = Ca Ion WB) 1.11 1.05-1.25 [facility] CloudGenixannPARATHYROID BMJMBHB5536-13-45 05:59:00 Test Item Value Reference Range Interpretation Comments Ca Norm WB (test code = Ca Norm WB) 1.11 1.05-1.25 [facility] CMCBUWY9015-05-90 05:59:00 Test Item Value Reference Range Interpretation Comments Total CK (test code = Total CK) 669 [facility] CloudGen[employer]annABT Molecular ImagingAC HGBWWST0523-21-66 05:59:00 Test Item Value Reference Range Interpretation Comments Total CK (test code = Total CK) 658 [facility] [employer] A/S [id number] 05:59:00 Test Item Value Reference Range Interpretation Comments Procalcitonin Lvl (test 2.37 See_Comment [Au tomated message] code = Procalcitonin Lvl) Th e system which generated this result transmitted ref erence range: <=0.10. The reference range was not used to interpr et this result as normal/abnormal . [facility]annPARATHYRO[facility] ZMSPKHS5604-63-16 05:59:00 Test Item Value Reference Range Interpretation Comments Ca Ion WB (test code = Ca Ion WB) 1.11 1.05-1.25 [facility]PARATH[facility]RO[facility] EXXTTGJ2656-57-63 05:59:00 Test Item Value Reference Range Interpretation Comments Ca Norm WB (test code = Ca Norm WB) 1.11 1.05-1.25 [facility] [id number] 05:51:00 Test Item Value Reference Range Interpretation Comments Procalcitonin Lvl (test 3.87 See_Comment [Au tomated message] code = Procalcitonin Lvl) Th e system which generated this result transmitted ref erence range: <=0.10. The reference range was not used to interpr et this result as normal/abnormal . [facility]2020-06-04 05:51:00 Test Item Value Reference Range Interpretation Comments Ca Ion WB (test code = Ca Ion WB) 0.99 1.05-1.25 [facility]2020-06-04 05:51:00 Test Item Value Reference Range Interpretation Comments Ca Norm WB (test code = Ca Norm WB) 1.02 1.05-1.25 [facility] [id number] 05:51:00 Test Item Value Reference Range Interpretation Comments Procalcitonin Lvl (test 3.87 See_Comment [Au tomated message] code = Procalcitonin Lvl) Th e system which generated this result transmitted ref erence range: <=0.10. The reference range was not used to interpr et this result as normal/abnormal . [facility]2020-06-04 05:51:00 Test Item Value Reference Range Interpretation Comments Ca Ion WB (test code = Ca Ion WB) 0.99 1.05-1.25 [facility]2020-06-04 05:51:00 Test Item Value Reference Range Interpretation Comments Ca Norm WB (test code = Ca Norm WB) 1.02 1.05-1.25 [facility] [id number] 05:08:00 Test Item Value Reference Range Interpretation Comments Procalcitonin Lvl (test 6.15 See_Comment [Au tomated message] code = Procalcitonin Lvl) Th e system which generated this result transmitted ref erence range: <=0.10. The reference range was not used to interpr et this result as normal/abnormal . [facility] SaultListen EditionREGENCY HOSPITAL OF GREENVILLEEREMEIF9472-15-99 05:08:00 Test Item Value Reference Range Interpretation Comments Ca Ion WB (test code = Ca Ion WB) 1.11 1.05-1.25 [facility]2020-06-03 05:08:00 Test Item Value Reference Range Interpretation Comments Ca Norm WB (test code = Ca Norm WB) 1.13 1.05-1.25 [facility]2020-06-03 05:08:00 Test Item Value Reference Range Interpretation Comments Procalcitonin Lvl (test 6.15 See_Comment [Au tomated message] code = Procalcitonin Lvl) Th e system which generated this result transmitted ref erence range: <=0.10. The reference range was not used to interpr et this result as normal/abnormal . [facility]2020-06-03 05:08:00 Test Item Value Reference Range Interpretation Comments Ca Ion WB (test code = Ca Ion WB) 1.11 1.05-1.25 [facility]2020-06-03 05:08:00 Test Item Value Reference Range Interpretation Comments Ca Norm WB (test code = Ca Norm WB) 1.13 1.05-1.25 [facility] HospitalHqpcbwvHCAQFBBELI8203-04-66 17:49:00 Test Item Value Reference Range Interpretation Comments PT (test code = PT) 14.6 s 12.0-14.7 [facility] HospitalVvfondcCETKMMCTIL8077-25-12 17:49:00 Test Item Value Reference Range Interpretation Comments INR (test code = INR) 1.13 1 0.85-1.17 [facility] HospitalPfswrjmIMPVFAZQQJ5758-73-78 17:49:00 Test Item Value Reference Range Interpretation Comments Thrombin Time (test code = Thrombin 19.8 s 15.0-21.2 Time) [facility] HospitalUpxmvnuOZNHLWRXOF7264-83-96 17:49:00 Test Item Value Reference Range Interpretation Comments Fibrinogen Lvl (test code = Fibrinogen 582 230-510 Lvl) [facility] HospitalUmfmnhiNTZWBLFSVR8868-84-52 17:49:00 Test Item Value Reference Range Interpretation Comments PTT (test code = PTT) 39.4 s 22.9-35.8 [facility] HospitalUjfogwbCIECGWWYAW2932-51-30 17:49:00 Test Item Value Reference Range Interpretation Comments D-Dimer (test code = D-Dimer) 3.70 [facility] HospitalMahlkbfADRTURTBDZ7835-27-76 17:49:00 Test Item Value Reference Range Interpretation Comments PB Smear Path Peripheral blood smear shows (test code = PB normocytic hypochromic Smear Path) anemia with anisopoikilocytsosis, a few elliptocytes, no increase in schistocytes, slight polychromasia, moderate thrombocytopenia. Impression: (1) no evidence of microangiopathic hemolysis, (2) RBC morphology is suggestive of iron deficiency anemia vs. anemia of chronic disease. CPT: 09409 [facility]QhgrzrsASJOKEHXRO8766-44-01 17:49:00 Test Item Value Reference Range Interpretation Comments Haptoglobin (test code = Haptoglobin) 266 16-200 [facility] HospitalQhlxjiaLZXMCVCBLE9246-67-13 17:49:00 Test Item Value Reference Range Interpretation Comments PT (test code = PT) 14.6 s 12.0-14.7 [facility] HospitalMmednjxBYMZBANBWA1989-20-38 17:49:00 Test Item Value Reference Range Interpretation Comments INR (test code = INR) 1.13 1 0.85-1.17 [facility] HospitalUjiarytBURPETZSQC9860-56-79 17:49:00 Test Item Value Reference Range Interpretation Comments Thrombin Time (test code = Thrombin 19.8 s 15.0-21.2 Time) [facility] HospitalKtxhjqnBIXPBSJEZG0926-36-42 17:49:00 Test Item Value Reference Range Interpretation Comments Fibrinogen Lvl (test code = Fibrinogen 582 230-510 Lvl) [facility] HospitalDiebsxqEAVYEKEHPS2210-78-49 17:49:00 Test Item Value Reference Range Interpretation Comments PTT (test code = PTT) 39.4 s 22.9-35.8 [facility] HospitalHlssibaLYRRULZHQE0087-14-65 17:49:00 Test Item Value Reference Range Interpretation Comments D-Dimer (test code = D-Dimer) 3.70 [facility] HospitalIbfkikhZKMMNIDQBD0095-92-31 17:49:00 Test Item Value Reference Range Interpretation Comments PB Smear Path Peripheral blood smear shows (test code = PB normocytic hypochromic Smear Path) anemia with anisopoikilocytsosis, a few elliptocytes, no increase in schistocytes, slight polychromasia, moderate thrombocytopenia. Impression: (1) no evidence of microangiopathic hemolysis, (2) RBC morphology is suggestive of iron deficiency anemia vs. anemia of chronic disease. CPT: [address]06-01 17:49:00 Test Item Value Reference Range Interpretation Comments Haptoglobin (test code = Haptoglobin) 266 16-200 [place] 45146020-05-31 15:44:00 Test Item Value Reference Range Interpretation Comments Vanco Tr (test code = Vanco Tr) 19.4 [facility] CenterLituppxFFPMAXFJZY4561-21-37 15:44:00 Test Item Value Reference Range Interpretation Comments Vanco Tr TND (test code = Vanco Tr 1030 1 TND) [facility] CenterPoaarzfROJLBEHPYW9025-92-79 15:44:00 Test Item Value Reference Range Interpretation Comments Vanco Tr (test code = Vanco Tr) 19.4 [facility] CenterPuanismTBDZZPPSQV3440-62-57 15:44:00 Test Item Value Reference Range Interpretation Comments Vanco Tr TND (test code = Vanco Tr 1030 1 TND) [facility] HospitalYnkhyopUXTQYPMUWI7617-38-77 11:59:00 Test Item Value Reference Range Interpretation Comments Sed Rate (test code = 25 See_Comment [Auto mated message] The Sed Rate) system which ge nerated this result transmit lawson reference range : <=15. The reference range was not used to interpr et this result as alejandra l/abnormal. [facility]HdqljsuFPKUUQQSTD9181-77-10 11:59:00 Test Item Value Reference Range Interpretation Comments C-REACTIVE PROTEIN (test code = 225.0 C-REACTIVE PROTEIN) [facility] HospitalUogeuqfIYLLWUVXNZ2685-74-80 11:59:00 Test Item Value Reference Range Interpretation Comments Sed Rate (test code = 25 See_Comment [Auto mated message] The Sed Rate) system which ge nerated this result transmit lawson reference range : <=15. The reference range was not used to interpr et this result as alejandra l/abnormal. [facility] NortheastYukswlyUJLTWZUFLG0778-23-39 11:59:00 Test Item Value Reference Range Interpretation Comments C-REACTIVE PROTEIN (test code = 225.0 C-REACTIVE PROTEIN) [facility]2020-05-31 05:27:00 Test Item Value Reference Range Interpretation Comments Bili Direct (test code 0.1 See_Comment [Aut omated message] The = Bili Direct) system which generated this result tra nsmitted reference range : <=0.3. The reference r pau was not used to int erpret this result as alejandra l/abnormal. [place] [address]-05-31 05:27:00 Test Item Value Reference Range Interpretation Comments Bili Indirect (test 0.5 See_Comment [Automa lawson message] The code = Bili Indirect) system which generated this result tra nsmitted reference range : <=1.0. The reference r pau was not used to int erpret this result as normal/abnormal . [place] [address]-05-31 05:27:00 Test Item Value Reference Range Interpretation Comments Bili Direct (test code 0.1 See_Comment [Aut omated message] The = Bili Direct) system which generated this result tra nsmitted reference range : <=0.3. The reference r pau was not used to int erpret this result as alejandra l/abnormal. [place] [address]-05-31 05:27:00 Test Item Value Reference Range Interpretation Comments Bili Indirect (test 0.5 See_Comment [Automa lawson message] The code = Bili Indirect) system which generated this result tra nsmitted reference range : <=1.0. The reference r pau was not used to int erpret this result as normal/abnormal . [place] 282240-05-30 21:59:00 Test Item Value Reference Range Interpretation Comments Lactic Acid Lvl (test code = Lactic 2.0 0.5-2.2 Acid Lvl) [address]05-30 21:59:00 Test Item Value Reference Range Interpretation Comments Lactic Acid Lvl (test code = Lactic 2.0 0.5-2.2 Acid Lvl) [place] [address]-05-30 17:17:00 Test Item Value Reference Range Interpretation Comments Lactic Acid Lvl (test code = Lactic 2.9 0.5-2.2 Acid Lvl) [place] [address]-05-30 17:17:00 Test Item Value Reference Range Interpretation Comments Lactic Acid Lvl (test code = Lactic 2.9 0.5-2.2 Acid Lvl) [place] [address]-05-30 13:39:00 Test Item Value Reference Range Interpretation Comments Lactic Acid Lvl (test code = Lactic 2.8 0.5-2.2 Acid Lvl) [facility]2020-05-30 13:39:00 Test Item Value Reference Range Interpretation Comments C difficile DNA (test Negative (03/22/20 8:39 code = C difficile DNA) AM) [facility] HospitalLlpuckeZGIKNCADAY2768-67-01 13:39:00 Test Item Value Reference Range Interpretation Comments Vanco Lvl (test code = Vanco Lvl) 13.0 [facility] HospitalannCHEM VBBYK2813-66-55 13:39:00 Test Item Value Reference Range Interpretation Comments Lactic Acid Lvl (test code = Lactic 2.8 0.5-2.2 Acid Lvl) [facility] HospitalannNELECULAR DWLPVHYYTN5420-50-31 13:39:00 Test Item Value Reference Range Interpretation Comments C difficile DNA (test Negative (03/22/20 8:39 code = C difficile DNA) AM) [facility]PcwipneWTPLJXCBEB8562-29-57 13:39:00 Test Item Value Reference Range Interpretation Comments Vanco Lvl (test code = Vanco Lvl) 13.0 [facility] HospitalBriteseedCARDIAC UIDZTJQ7961-72-63 09:45:00 Test Item Value Reference Range Interpretation Comments Troponin-I (test code 1.70 See_Comment [Auto mated message] The = Troponin-I) system which g enerated this result transmit lawson reference range : <=0.40. The reference r pau was not used to interpr et this result as alejandra l/abnormal. [facility] HospitalBriteseedCARDIBitrockr [id number] 09:45:00 Test Item Value Reference Range Interpretation Comments Troponin-I (test code 1.70 See_Comment [Auto mated message] The = Troponin-I) system which g enerated this result transmit lawson reference range : <=0.40. The reference r pau was not used to interpr et this result as alejandra l/abnormal. [facility] [id number] 06:45:00 Test Item Value Reference Range Interpretation Comments Grp A Strep Scr (test Negative (03/22/20 1:45 code = Grp A Strep AM) Scr) [facility] [id number] 06:45:00 Test Item Value Reference Range Interpretation Comments Grp A Strep Scr (test Negative (03/22/20 1:45 code = Grp A Strep AM) Scr) [facility] HospitalannBACTERIAL - [id number] 05:56:00 Test Item Value Reference Range Interpretation Comments MRSA by PCR (test Negative (03/22/20 12:56 code = MRSA by PCR) AM) [facility] HospitalannBACTERIAL - [id number] 05:56:00 Test Item Value Reference Range Interpretation Comments Source Strep (test code Urine *NA*(03/22/20 = Source Strep) 12:56 AM) [facility] HospitalannBACTERIAL - [id number] 05:56:00 Test Item Value Reference Range Interpretation Comments Strep pneumoniae Ag Negative (03/22/20 (test code = Strep 12:56 AM) pneumoniae Ag) [facility] HospitalannCARDIAC [id number] 05:56:00 Test Item Value Reference Range Interpretation Comments Troponin-I (test code 2.35 See_Comment [Auto mated message] The = Troponin-I) system which g enerated this result transmit lawson reference range : <=0.40. The reference r pau was not used to interpr et this result as alejandra l/abnormal. [facility] HospitalBriteseedCARDIAC [id number] 05:56:00 Test Item Value Reference Range Interpretation Comments proBNP (test code = 9468 See_Comment [Automa lawson message] The proBNP) system which ge nerated this result tra nsmitted reference range : <=125. The reference r pau was not used to int erpret this result as alejandra l/abnormal. [facility] LendProCHEM [id number] 05:56:00 Test Item Value Reference Range Interpretation Comments Osmolality (test code = Osmolality) 332 280-300 [facility] HospitalQrucdkwTDJJHPZUWU9906-18-30 05:56:00 Test Item Value Reference Range Interpretation Comments Fibrinogen Lvl (test code = Fibrinogen 611 230-510 Lvl) [facility] Hos[id number] 05:56:00 Test Item Value Reference Range Interpretation Comments D-Dimer (test code = D-Dimer) 6.22 [facility] H[id number] 05:56:00 Test Item Value Reference Range Interpretation Comments HIV Ag/Ab 4th Gen Negative *NA*(03/22/20 (test code = HIV 12:56 AM) Ag/Ab 4th Gen) [facility] Hos[id number] 05:56:00 Test Item Value Reference Range Interpretation Comments Hep Bs Ab (test code = Hep Bs Ab) 3.2 [facility] Ho[id number] 05:56:00 Test Item Value Reference Range Interpretation Comments Hep Bs Ag (test code Negative *NA*(03/22/20 = Hep Bs Ag) 12:56 AM) [facility] Hos[id number] 05:56:00 Test Item Value Reference Range Interpretation Comments Hep A IgM (test code Negative *NA*(03/22/20 = Hep A IgM) 12:56 AM) [facility] Hospit[id number] 05:56:00 Test Item Value Reference Range Interpretation Comments Hep C Ab (test code = Negative *NA*(03/22/20 Hep C Ab) 12:56 AM) [facility]laGXNTDFZRLR3025-27-16 05:56:00 Test Item Value Reference Range Interpretation Comments Hep B Core IgM (test Negative *NA*(03/22/20 code = Hep B Core 12:56 AM) IgM) [facility]SPE[facility] [id number] 05:56:00 Test Item Value Reference Range Interpretation Comments Hgb A1C (test code = Hgb A1C) 6.2 [facility] HospitalannBACTERIAL - [id number] 05:56:00 Test Item Value Reference Range Interpretation Comments MRSA by PCR (test Negative (03/22/20 12:56 code = MRSA by PCR) AM) [facility] HospitalannBACTERIAL - [id number] 05:56:00 Test Item Value Reference Range Interpretation Comments Source Strep (test code Urine *NA*(03/22/20 = Source Strep) 12:56 AM) [facility] HospitalannBACTERIAL - [id number] 05:56:00 Test Item Value Reference Range Interpretation Comments Strep pneumoniae Ag Negative (03/22/20 (test code = Strep 12:56 AM) pneumoniae Ag) [facility] HospitalannCARDIAC [id number] 05:56:00 Test Item Value Reference Range Interpretation Comments Troponin-I (test code 2.35 See_Comment [Auto mated message] The = Troponin-I) system which g enerated this result transmit lawson reference range : <=0.40. The reference r pau was not used to interpr et this result as alejandra l/abnormal. [facility] HospitalannCARDIAC [id number] 05:56:00 Test Item Value Reference Range Interpretation Comments proBNP (test code = 9468 See_Comment [Automa lawson message] The proBNP) system which ge nerated this result tra nsmitted reference range : <=125. The reference r pau was not used to int erpret this result as alejandra l/abnormal. [facility] [id number] 05:56:00 Test Item Value Reference Range Interpretation Comments Osmolality (test code = Osmolality) 332 280-300 [facility] Hos[id number] 05:56:00 Test Item Value Reference Range Interpretation Comments Fibrinogen Lvl (test code = Fibrinogen 611 230-510 Lvl) [facility] Hos[id number] 05:56:00 Test Item Value Reference Range Interpretation Comments D-Dimer (test code = D-Dimer) 6.22 [facility] H[id number] 05:56:00 Test Item Value Reference Range Interpretation Comments HIV Ag/Ab 4th Gen Negative *NA*(03/22/20 (test code = HIV 12:56 AM) Ag/Ab 4th Gen) [facility] HospitalTkcgfpxDFQDJAMUJT6812-60-27 05:56:00 Test Item Value Reference Range Interpretation Comments Hep Bs Ab (test code = Hep Bs Ab) 3.2 [facility] Hos[id number] 05:56:00 Test Item Value Reference Range Interpretation Comments Hep Bs Ag (test code Negative *NA*(03/22/20 = Hep Bs Ag) 12:56 AM) [facility] Ho[id number] 05:56:00 Test Item Value Reference Range Interpretation Comments Hep A IgM (test code Negative *NA*(03/22/20 = Hep A IgM) 12:56 AM) [facility] HospitalSurmnlvJQSHWXZUCK5306-21-30 05:56:00 Test Item Value Reference Range Interpretation Comments Hep C Ab (test code = Negative *NA*(03/22/20 Hep C Ab) 12:56 AM) [facility] H[id number] 05:56:00 Test Item Value Reference Range Interpretation Comments Hep B Core IgM (test Negative *NA*(03/22/20 code = Hep B Core 12:56 AM) IgM) [facility] [id number] 05:56:00 Test Item Value Reference Range Interpretation Comments Hgb A1C (test code = Hgb A1C) 6.2 [facility] [id number] 03:45:00 Test Item Value Reference Range Interpretation Comments Troponin-I (test code 2.58 See_Comment [Auto mated message] The = Troponin-I) system which g enerated this result transmit lawson reference range : <=0.40. The reference r pau was not used to interpr et this result as alejandra l/abnormal. [facility] NortheastGovtoday [id number] 03:45:00 Test Item Value Reference Range Interpretation Comments Lactic Acid WB (test code = Lactic Acid 5.0 0.5-2.2 WB) [facility] [id number] 03:45:00 Test Item Value Reference Range Interpretation Comments Bili Direct (test code 0.3 See_Comment [Aut omated message] The = Bili Direct) system which generated this result tra nsmitted reference range : <=0.3. The reference r pau was not used to int erpret this result as alejandra l/abnormal. [facility] [id number] 03:45:00 Test Item Value Reference Range Interpretation Comments Bili Indirect (test 0.4 See_Comment [Automa lawson message] The code = Bili Indirect) system which generated this result tra nsmitted reference range : <=1.0. The reference r pau was not used to int erpret this result as normal/abnormal . [facility] Hos[id number] 03:45:00 Test Item Value Reference Range Interpretation Comments Bands (test code = 23.0 See_Comment [Automat ed message] The Bands) system which ge nerated this result transmit lawson reference range : <=11.0. The reference r pau was not used to interpr et this result as alejandra l/abnormal. [id number] 03:45:00 Test Item Value Reference Range Interpretation Comments Atypical Lymphs (test code = Atypical 1.0 Lymphs) [place] [id number] 03:45:00 Test Item Value Reference Range Interpretation Comments RBC Morph (test code = Normal (03/21/20 10:45 RBC Morph) PM) [place] [id number] 03:45:00 Test Item Value Reference Range Interpretation Comments Large Plt (test code = Large Plt) Few [facility] [id number] 03:45:00 Test Item Value Reference Range Interpretation Comments Troponin-I (test code 2.58 See_Comment [Auto mated message] The = Troponin-I) system which g enerated this result transmit lawson reference range : <=0.40. The reference r pau was not used to interpr et this result as alejandra l/abnormal. [facility] [id number] 03:45:00 Test Item Value Reference Range Interpretation Comments Lactic Acid WB (test code = Lactic Acid 5.0 0.5-2.2 WB) [facility] [id number] 03:45:00 Test Item Value Reference Range Interpretation Comments Bili Direct (test code 0.3 See_Comment [Aut omated message] The = Bili Direct) system which generated this result tra nsmitted reference range : <=0.3. The reference r pau was not used to int erpret this result as alejandra l/abnormal. [facility] [id number] 03:45:00 Test Item Value Reference Range Interpretation Comments Bili Indirect (test 0.4 See_Comment [Automa lawson message] The code = Bili Indirect) system which generated this result tra nsmitted reference range : <=1.0. The reference r pau was not used to int erpret this result as normal/abnormal . [facility] H[id number] 03:45:00 Test Item Value Reference Range Interpretation Comments Bands (test code = 23.0 See_Comment [Automat ed message] The Bands) system which ge nerated this result transmit lawson reference range : <=11.0. The reference r pau was not used to interpr et this result as alejandra l/abnormal. [facility] H[id number] 03:45:00 Test Item Value Reference Range Interpretation Comments Atypical Lymphs (test code = Atypical 1.0 Lymphs) [place] [id number] 03:45:00 Test Item Value Reference Range Interpretation Comments RBC Morph (test code = Normal (03/21/20 10:45 RBC Morph) PM) [place] 439150-05-30 03:45:00 Test Item Value Reference Range Interpretation Comments Large Plt (test code = Large Plt) Few [facility] [id number] 03:40:00 Test Item Value Reference Range Interpretation Comments Tube Num CSF (test code = Tube Num CSF) 1 1 [facility]2020-05-30 03:40:00 Test Item Value Reference Range Interpretation Comments Color CSF (test code = Color CSF) [place] [facility]2020-05-30 03:40:00 Test Item Value Reference Range Interpretation Comments Clarity CSF (test code Slight Blood = Clarity CSF) *ABN*(03/21/20 10:40 PM) [facility]2020-05-30 03:40:00 Test Item Value Reference Range Interpretation Comments Supernat CSF (test Hemolyzed *ABN*(03/21/20 code = Supernat CSF) 10:40 PM) [facility]2020-05-30 03:40:00 Test Item Value Reference Range Interpretation Comments Nucleated Cells CSF 4 See_Comment [Automa lawson message] The (test code = Nucleated syste m which generated Cells CSF) this result tra nsmitted reference range : <=53. The reference r pau was not used to int erpret this result as normal/abnormal . [facility] [id number] 03:40:00 Test Item Value Reference Range Interpretation Comments RBC CSF (test code = 69329 See_Comment [Autom ated message] The RBC CSF) system which ge nerated this result transmit lawson reference range : <=03. The reference range was not used to interpr et this result as alejandra l/abnormal. [facility]2020-05-30 03:40:00 Test Item Value Reference Range Interpretation Comments Neutrophils CSF (test 3 See_Comment [Auto mated message] The code = Neutrophils CSF) syst em which generated this result tra nsmitted reference range : <=6. The reference r pau was not used to int erpret this result as normal/abnormal . [facility] [id number] 03:40:00 Test Item Value Reference Range Interpretation Comments Lymph CSF (test code = Lymph CSF) 75 40-80 [facility] [id number] 03:40:00 Test Item Value Reference Range Interpretation Comments Monocyte CSF (test code = Monocyte CSF) 22 15-45 [facility] [id number] 03:40:00 Test Item Value Reference Range Interpretation Comments Glucose CSF (test code = Glucose CSF) 157 45-80 [facility] [id number] 03:40:00 Test Item Value Reference Range Interpretation Comments Tube Num CSF (test code = Tube Num CSF) 1 1 [facility]2020-05-30 03:40:00 Test Item Value Reference Range Interpretation Comments Color CSF (test code = Color CSF) [place] [facility]2020-05-30 03:40:00 Test Item Value Reference Range Interpretation Comments Clarity CSF (test code Slight Blood = Clarity CSF) *ABN*(03/21/20 10:40 PM) [facility]2020-05-30 03:40:00 Test Item Value Reference Range Interpretation Comments Supernat CSF (test Hemolyzed *ABN*(03/21/20 code = Supernat CSF) 10:40 PM) [facility] [id number] 03:40:00 Test Item Value Reference Range Interpretation Comments Nucleated Cells CSF 4 See_Comment [Automa lawson message] The (test code = Nucleated syste m which generated Cells CSF) this result tra nsmitted reference range : <=53. The reference r pau was not used to int erpret this result as normal/abnormal . [facility] [id number] 03:40:00 Test Item Value Reference Range Interpretation Comments RBC CSF (test code = 53897 See_Comment [Autom ated message] The RBC CSF) system which ge nerated this result transmit lawson reference range : <=03. The reference range was not used to interpr et this result as alejandra l/abnormal. [facility] [id number] 03:40:00 Test Item Value Reference Range Interpretation Comments Neutrophils CSF (test 3 See_Comment [Auto mated message] The code = Neutrophils CSF) syst em which generated this result tra nsmitted reference range : <=6. The reference r pau was not used to int erpret this result as normal/abnormal . [facility] [id number] 03:40:00 Test Item Value Reference Range Interpretation Comments Lymph CSF (test code = Lymph CSF) 75 40-80 [facility] [id number] 03:40:00 Test Item Value Reference Range Interpretation Comments Monocyte CSF (test code = Monocyte CSF) 22 15-45 [facility] [id number] 03:40:00 Test Item Value Reference Range Interpretation Comments Glucose CSF (test code = Glucose CSF) 157 45-80 [facility]2020-05-30 03:39:00 Test Item Value Reference Range Interpretation Comments Protein CSF (test code = Protein CSF) 100 15-45 [facility]2020-05-30 03:39:00 Test Item Value Reference Range Interpretation Comments Tube Num CSF (test code = Tube Num CSF) 4 1 [facility]2020-05-30 03:39:00 Test Item Value Reference Range Interpretation Comments Color CSF (test code = Color CSF) [place] [facility]2020-05-30 03:39:00 Test Item Value Reference Range Interpretation Comments Clarity CSF (test code Slight *ABN*(03/21/20 = Clarity CSF) 10:39 PM) [facility]2020-05-30 03:39:00 Test Item Value Reference Range Interpretation Comments Supernat CSF (test Colorless (03/21/20 code = Supernat CSF) 10:39 PM) [facility]2020-05-30 03:39:00 Test Item Value Reference Range Interpretation Comments Nucleated Cells CSF 2 See_Comment [Automa lawson message] The (test code = Nucleated syste m which generated Cells CSF) this result tra nsmitted reference range : <=53. The reference r pau was not used to int erpret this result as normal/abnormal . [facility]2020-05-30 03:39:00 Test Item Value Reference Range Interpretation Comments RBC CSF (test code = 3122 See_Comment [Autom ated message] The RBC CSF) system which ge nerated this result transmit lawson reference range : <=03. The reference range was not used to interpr et this result as alejandra l/abnormal. [facility]2020-05-30 03:39:00 Test Item Value Reference Range Interpretation Comments Comment CSF (test Differential not code = Comment CSF) performed on WBC count of less than 5. [facility]2020-05-30 03:39:00 Test Item Value Reference Range Interpretation Comments Source HSV (test code = Cerebral Spinal Fluid Source HSV) [facility] [id number] 03:39:00 Test Item Value Reference Range Interpretation Comments HSV 1 by PCR (test Negative (03/21/20 10:39 code = HSV 1 by PCR) PM) [facility] [id number] 03:39:00 Test Item Value Reference Range Interpretation Comments HSV 2 by PCR (test Negative (03/21/20 10:39 code = HSV 2 by PCR) PM) [facility] [id number] 03:39:00 Test Item Value Reference Range Interpretation Comments Gram Stain Report Gram Stain Performed By: (test code = Gram [facility] Stain Report) [facility] w/Gram [id number] 03:39:00 Test Item Value Reference Range Interpretation Comments Culture: CSF w/Gram Stain (test No Growth code = Culture: CSF w/Gram Stain) [facility] [id number] 03:39:00 Test Item Value Reference Range Interpretation Comments Protein CSF (test code = Protein CSF) 100 15-45 [facility] [id number] 03:39:00 Test Item Value Reference Range Interpretation Comments Tube Num CSF (test code = Tube Num CSF) 4 1 [facility] [id number] 03:39:00 Test Item Value Reference Range Interpretation Comments Color CSF (test code = Color CSF) [place] [facility] [id number] 03:39:00 Test Item Value Reference Range Interpretation Comments Clarity CSF (test code Slight *ABN*(03/21/20 = Clarity CSF) 10:39 PM) [facility]2020-05-30 03:39:00 Test Item Value Reference Range Interpretation Comments Supernat CSF (test Colorless (03/21/20 code = Supernat CSF) 10:39 PM) [facility]2020-05-30 03:39:00 Test Item Value Reference Range Interpretation Comments Nucleated Cells CSF 2 See_Comment [Automa lawson message] The (test code = Nucleated syste m which generated Cells CSF) this result tra nsmitted reference range : <=53. The reference r pau was not used to int erpret this result as normal/abnormal . [facility] [id number] 03:39:00 Test Item Value Reference Range Interpretation Comments RBC CSF (test code = 3122 See_Comment [Autom ated message] The RBC CSF) system which ge nerated this result transmit lawson reference range : <=03. The reference range was not used to interpr et this result as alejandra l/abnormal. [facility]annBODY [id number] 03:39:00 Test Item Value Reference Range Interpretation Comments Comment CSF (test Differential not code = Comment CSF) performed on WBC count of less than 5. [facility] [id number] 03:39:00 Test Item Value Reference Range Interpretation Comments Source HSV (test code = Cerebral Spinal Fluid Source HSV) [facility] [id number] 03:39:00 Test Item Value Reference Range Interpretation Comments HSV 1 by PCR (test Negative (03/21/20 10:39 code = HSV 1 by PCR) PM) [facility] [id number] 03:39:00 Test Item Value Reference Range Interpretation Comments HSV 2 by PCR (test Negative (03/21/20 10:39 code = HSV 2 by PCR) PM) [facility] [id number] 03:39:00 Test Item Value Reference Range Interpretation Comments Gram Stain Report Gram Stain Performed By: (test code = Gram [facility] [place] Stain Report) [facility] w/Gram [id number] 03:39:00 Test Item Value Reference Range Interpretation Comments Culture: CSF w/Gram Stain (test No Growth code = Culture: CSF w/Gram Stain) [facility] H[id number] 21:02:00 Test Item Value Reference Range Interpretation Comments Coronavirus (COVID-19) Not Detected (03/21/20 CHRISTIAN (test code = 4:02 PM) Coronavirus (COVID-19) CHRISTIAN) [facility] H[id number] 21:02:00 Test Item Value Reference Range Interpretation Comments Coronavirus (COVID-19) Not Detected (03/21/20 CHRISTIAN (test code = 4:02 PM) Coronavirus (COVID-19) CHRISTIAN) [facility]annCHEM [id number] 19:33:00 Test Item Value Reference Range Interpretation Comments Ammonia (test code = Ammonia) 48.0 [facility]annDR[facility] [id number] 19:33:00 Test Item Value Reference Range Interpretation Comments U Amph Scr (test code Negative *NA*(03/21/20 = U Amph Scr) 2:33 PM) [facility]annDR[facility] [id number] 19:33:00 Test Item Value Reference Range Interpretation Comments U Noemi Scr (test code Negative *NA*(03/21/20 = U Noemi Scr) 2:33 PM) [facility] [id number] 19:33:00 Test Item Value Reference Range Interpretation Comments U Benzodiaz Scr (test Negative *NA*(03/21/20 code = U Benzodiaz Scr) 2:33 PM) [facility] [id number] 19:33:00 Test Item Value Reference Range Interpretation Comments U Cannab Scr (test Negative *NA*(03/21/20 code = U Cannab Scr) 2:33 PM) [facility] [id number] 19:33:00 Test Item Value Reference Range Interpretation Comments U Cocaine Scr (test Negative *NA*(03/21/20 code = U Cocaine Scr) 2:33 PM) [facility] [id number] 19:33:00 Test Item Value Reference Range Interpretation Comments U Opiate Scr (test Negative *NA*(03/21/20 code = U Opiate Scr) 2:33 PM) [facility] [id number] 19:33:00 Test Item Value Reference Range Interpretation Comments U Phencyclidine Scr (test Negative code = U Phencyclidine *NA*(03/21/20 2:33 Scr) PM) [facility] [id number] 19:33:00 Test Item Value Reference Range Interpretation Comments UDS Note (test code = See Note *NA*(03/21/20 UDS Note) 2:33 PM) [facility] Nort[id number] 19:33:00 Test Item Value Reference Range Interpretation Comments Acetaminoph Lvl (test code = no gt - Acetaminoph Lvl) [facility] [id number] 19:33:00 Test Item Value Reference Range Interpretation Comments Ethanol Lvl (test code = Ethanol Lvl) no gt [facility] [id number] 19:33:00 Test Item Value Reference Range Interpretation Comments Etoh (%) (test code = Etoh (%)) no gt [facility] [id number] 19:33:00 Test Item Value Reference Range Interpretation Comments Salicylate Lvl (test no gt See_Comment [Autom ated message] The code = Salicylate Lvl) syste m which generated this result tra nsmitted reference range : <=30.0. The reference r pau was not used to int erpret this result as normal/abnormal . [facility] [employer] A/S [id number] 19:33:00 Test Item Value Reference Range Interpretation Comments Ammonia (test code = Ammonia) 48.0 [facility] [employer] [id number] 19:33:00 Test Item Value Reference Range Interpretation Comments U Amph Scr (test code Negative *NA*(03/21/20 = U Amph Scr) 2:33 PM) [facility] [employer] [id number] 19:33:00 Test Item Value Reference Range Interpretation Comments U Noemi Scr (test code Negative *NA*(03/21/20 = U Onemi Scr) 2:33 PM) [facility] [employer] [id number] 19:33:00 Test Item Value Reference Range Interpretation Comments U Benzodiaz Scr (test Negative *NA*(03/21/20 code = U Benzodiaz Scr) 2:33 PM) [facility] [employer] [id number] 19:33:00 Test Item Value Reference Range Interpretation Comments U Cannab Scr (test Negative *NA*(03/21/20 code = U Cannab Scr) 2:33 PM) [facility] [employer] [id number] 19:33:00 Test Item Value Reference Range Interpretation Comments U Cocaine Scr (test Negative *NA*(03/21/20 code = U Cocaine Scr) 2:33 PM) [facility] [employer] [id number] 19:33:00 Test Item Value Reference Range Interpretation Comments U Opiate Scr (test Negative *NA*(03/21/20 code = U Opiate Scr) 2:33 PM) [facility] [employer] [id number] 19:33:00 Test Item Value Reference Range Interpretation Comments U Phencyclidine Scr (test Negative code = U Phencyclidine *NA*(03/21/20 2:33 Scr) PM) [facility] [employer] [id number] 19:33:00 Test Item Value Reference Range Interpretation Comments UDS Note (test code = See Note *NA*(03/21/20 UDS Note) 2:33 PM) [id number] 19:33:00 Test Item Value Reference Range Interpretation Comments Acetaminoph Lvl (test code = no gt 10-20 Acetaminoph Lvl) [id number] 19:33:00 Test Item Value Reference Range Interpretation Comments Ethanol Lvl (test code = Ethanol Lvl) no gt [id number] 19:33:00 Test Item Value Reference Range Interpretation Comments Etoh (%) (test code = Etoh (%)) no gt [id number] 19:33:00 Test Item Value Reference Range Interpretation Comments Salicylate Lvl (test no gt See_Comment [Autom ated message] The code = Salicylate Lvl) syste m which generated this result tra nsmitted reference range : <=30.0. The reference r pau was not used to int erpret this result as normal/abnormal . [facility] [id number] 17:49:00 Test Item Value Reference Range Interpretation Comments Lactic Acid WB (test code = Lactic Acid 3.0 0.5-2.2 WB) [facility] [id number] 17:49:00 Test Item Value Reference Range Interpretation Comments Lactic Acid WB (test code = Lactic Acid 3.0 0.5-2.2 WB) [facility] AND [id number] 16:26:00 Test Item Value Reference Range Interpretation Comments UA Color (test code = Natasha *ABN*(03/21/20 UA Color) 11:26 AM) [facility] AND [id number] 16:26:00 Test Item Value Reference Range Interpretation Comments UA Turbidity (test code Slight *ABN*(03/21/20 = UA Turbidity) 11:26 AM) [facility] AND [id number] 16:26:00 Test Item Value Reference Range Interpretation Comments UA Spec Grav (test code = UA Spec 1.025 1 Grav) [facility] AND [id number] 16:26:00 Test Item Value Reference Range Interpretation Comments UA pH (test code = UA pH) 5.0 1 5.0-8.0 [facility] AND [id number] 16:26:00 Test Item Value Reference Range Interpretation Comments UA Ketones (test code = UA Negative mg/dL Ketones) [facility] [id number] 16:26:00 Test Item Value Reference Range Interpretation Comments UA Bili (test code = Negative *NA*(03/21/20 UA Bili) 11:26 AM) [facility] [id number] 16:26:00 Test Item Value Reference Range Interpretation Comments UA Blood (test code = Large *ABN*(03/21/20 UA Blood) 11:26 AM) [facility] [id number] 16:26:00 Test Item Value Reference Range Interpretation Comments UA Urobilinogen (test code = UA no gt 0.1-1.0 Urobilinogen) [facility] [id number] 16:26:00 Test Item Value Reference Range Interpretation Comments UA Nitrite (test code Negative (03/21/20 11:26 = UA Nitrite) AM) [facility] [id number] 16:26:00 Test Item Value Reference Range Interpretation Comments UA Leuk Est (test code Trace *ABN*(03/21/20 = UA Leuk Est) 11:26 AM) [facility] [id number] 16:26:00 Test Item Value Reference Range Interpretation Comments UA Sq Epi (test code = UA Sq Occasional /LPF Epi) [facility] [id number] 16:26:00 Test Item Value Reference Range Interpretation Comments UA WBC (test code = 40 See_Comment [Automa lawson message] The UA WBC) system which ge nerated this result transmit lawson reference range : <=5. The reference range was not used to interpr et this result as alejandra l/abnormal. [facility] [id number] 16:26:00 Test Item Value Reference Range Interpretation Comments UA RBC (test code = 19 See_Comment [Automa lawson message] The UA RBC) system which ge nerated this result transmit lawson reference range : <=2. The reference range was not used to interpr et this result as alejandra l/abnormal. [facility] [id number] 16:26:00 Test Item Value Reference Range Interpretation Comments UA Bacteria (test code = UA Few /HPF Bacteria) [facility] [id number] 16:26:00 Test Item Value Reference Range Interpretation Comments UA Mucus (test code = UA Mucus) Few /LPF [facility] AND [id number] 16:26:00 Test Item Value Reference Range Interpretation Comments UA Amorph Kya (test code = UA Few /HPF Amorph Kya) [facility] AND [id number] 16:26:00 Test Item Value Reference Range Interpretation Comments UA Protein (test code = UA Protein) no gt [facility] AND [id number] 16:26:00 Test Item Value Reference Range Interpretation Comments UA Glucose (test code = UA Glucose) 50mg/dl [facility] [id number] 16:26:00 Test Item Value Reference Range Interpretation Comments Culture: Urine (test 10,000 - 50,000 CFU/mL code = Culture: Urine) Skin Eleni [facility] AND [id number] 16:26:00 Test Item Value Reference Range Interpretation Comments UA Color (test code = Natasha *ABN*(03/21/20 UA Color) 11:26 AM) [facility] AND [id number] 16:26:00 Test Item Value Reference Range Interpretation Comments UA Turbidity (test code Slight *ABN*(03/21/20 = UA Turbidity) 11:26 AM) [facility] AND [id number] 16:26:00 Test Item Value Reference Range Interpretation Comments UA Spec Grav (test code = UA Spec 1.025 1 Grav) [facility] AND [id number] 16:26:00 Test Item Value Reference Range Interpretation Comments UA pH (test code = UA pH) 5.0 1 5.0-8.0 [facility] AND [id number] 16:26:00 Test Item Value Reference Range Interpretation Comments UA Ketones (test code = UA Negative mg/dL Ketones) [facility] AND [id number] 16:26:00 Test Item Value Reference Range Interpretation Comments UA Bili (test code = Negative *NA*(03/21/20 UA Bili) 11:26 AM) [facility] AND [id number] 16:26:00 Test Item Value Reference Range Interpretation Comments UA Blood (test code = Large *ABN*(5/29/20 UA Blood) 11:26 AM) [facility] [id number] 16:26:00 Test Item Value Reference Range Interpretation Comments UA Urobilinogen (test code = UA no gt 0.1-1.0 Urobilinogen) [facility] [id number] 16:26:00 Test Item Value Reference Range Interpretation Comments UA Nitrite (test code Negative (03/21/20 11:26 = UA Nitrite) AM) [facility] [id number] 16:26:00 Test Item Value Reference Range Interpretation Comments UA Leuk Est (test code Trace *ABN*(03/21/20 = UA Leuk Est) 11:26 AM) [facility] [id number] 16:26:00 Test Item Value Reference Range Interpretation Comments UA Sq Epi (test code = UA Sq Occasional /LPF Epi) [facility] [id number] 16:26:00 Test Item Value Reference Range Interpretation Comments UA WBC (test code = 40 See_Comment [Automa lawson message] The UA WBC) system which ge nerated this result transmit lawson reference range : <=5. The reference range was not used to interpr et this result as alejandra l/abnormal. [facility] [id number] 16:26:00 Test Item Value Reference Range Interpretation Comments UA RBC (test code = 19 See_Comment [Automa lawson message] The UA RBC) system which ge nerated this result transmit lawson reference range : <=2. The reference range was not used to interpr et this result as alejandra l/abnormal. [facility] [id number] 16:26:00 Test Item Value Reference Range Interpretation Comments UA Bacteria (test code = UA Few /HPF Bacteria) [facility] [id number] 16:26:00 Test Item Value Reference Range Interpretation Comments UA Mucus (test code = UA Mucus) Few /LPF [facility] [id number] 16:26:00 Test Item Value Reference Range Interpretation Comments UA Amorph Kya (test code = UA Few /HPF Amorph Kya) [facility] [id number] 16:26:00 Test Item Value Reference Range Interpretation Comments UA Protein (test code = UA Protein) no gt [facility] [id number] 16:26:00 Test Item Value Reference Range Interpretation Comments UA Glucose (test code = UA Glucose) 50mg/dl [facility] [id number] 16:26:00 Test Item Value Reference Range Interpretation Comments Culture: Urine (test 10,000 - 50,000 CFU/mL code = Culture: Urine) Skin Eleni [facility] [id number] 16:22:00 Test Item Value Reference Range Interpretation Comments Coronavirus (COVID-19) Not Detected (03/21/20 CHRISTIAN (test code = 11:22 AM) Coronavirus (COVID-19) CHRISTIAN) [facility] [id number] 16:22:00 Test Item Value Reference Range Interpretation Comments Coronavirus (COVID-19) Not Detected (03/21/20 CHRISTIAN (test code = 11:22 AM) Coronavirus (COVID-19) CHRISTIAN) [facility] [id number] 16:06:00 Test Item Value Reference Range Interpretation Comments PT (test code = PT) 16.8 s 12.0-14.7 [id number] 16:06:00 Test Item Value Reference Range Interpretation Comments INR (test code = INR) 1.35 1 0.85-1.17 [facility] [id number] 16:06:00 Test Item Value Reference Range Interpretation Comments PTT (test code = PTT) 41.6 s 22.9-35.8 [facility] H[id number] 16:06:00 Test Item Value Reference Range Interpretation Comments PT (test code = PT) 16.8 s 12.0-14.7 [facility] [id number] 16:06:00 Test Item Value Reference Range Interpretation Comments INR (test code = INR) 1.35 1 0.85-1.17 [facility] H[id number] 16:06:00 Test Item Value Reference Range Interpretation Comments PTT (test code = PTT) 41.6 s 22.9-35.8 [facility] H[id number] 15:09:00 Test Item Value Reference Range Interpretation Comments Bands (test code = 20.0 See_Comment [Automat ed message] [employer]) system which ge nerated this result transmit lawson reference range : <=11.0. The reference r pau was not used to interpr et this result as alejandra l/abnormal. [facility] H[id number] 15:09:00 Test Item Value Reference Range Interpretation Comments Myelocytes (test code = Myelocytes) 2.0 [facility] H[id number] 15:09:00 Test Item Value Reference Range Interpretation Comments Atypical Lymphs (test code = Atypical 0.0 Lymphs) [facility] [id number] 15:09:00 Test Item Value Reference Range Interpretation Comments RBC Morph (test code = Normal (03/21/20 10:09 RBC Morph) AM) [facility] H[id number] 15:09:00 Test Item Value Reference Range Interpretation Comments Large Plt (test code = Large Plt) Slight [facility] H[id number] 15:09:00 Test Item Value Reference Range Interpretation Comments Bands (test code = 20.0 See_Comment [Automat ed message] The [employer]) system which ge nerated this result transmit lawson reference range : <=11.0. The reference r pau was not used to interpr et this result as alejandra l/abnormal. [facility] H[id number] 15:09:00 Test Item Value Reference Range Interpretation Comments Myelocytes (test code = Myelocytes) 2.0 [facility] HospitalUtwhbzlFWVXPDZIIV2313-04-35 15:09:00 Test Item Value Reference Range Interpretation Comments Atypical Lymphs (test code = Atypical 0.0 Lymphs) [facility] H[id number] 15:09:00 Test Item Value Reference Range Interpretation Comments RBC Morph (test code = Normal (03/21/20 10:09 RBC Morph) AM) [facility] H[id number] 15:09:00 Test Item Value Reference Range Interpretation Comments Large Plt (test code = Large Plt) Slight [facility]
[2022-07-15] MEDS ORDERED: dexAMETHasone 10 MG/ML VIAL ONE (11:56)
[2022-07-15] MEDS ORDERED: FAMOTIDINE 20 MG TAB ONE (11:56)
[2022-07-15] MEDS ORDERED: CETIRIZINE HCL 5 MG TABLET ONE (11:56)
--- NOTE | 2022-07-15 12:14 | EDPHYS ---
Physician Documentation [facility] Name: Louis Torres Age: 62 yrs Sex: Male : 1960 Arrival Date: 07/15/2022 Time: 11:06 Bed 13 Private MD: Daniela Dan ED Physician Heath Castellano HPI: 07/15 12:30 This 62 yrs old Male presents to ER via Ambulatory with complaints of Rash. snw 12:30 The patient's rash thought to be caused by a recent illness. The rash is located on the snw right jaw, left jaw and chest. The rash can be described as macular, papular. Onset: The symptoms/episode began/occurred suddenly. Severity of symptoms: At their worst the symptoms were mild. The patient has not experienced similar symptoms in the past. multiple appts for Ureteral stent, prostate biopsy. Historical: - Allergies: 11:08 PENICILLINS; aa5 - PMHx: 11:08 diabetes mellitus; Hypertensive disorder; aa5 - PSHx: 11:08 Appendectomy; aa5 - Immunization history:: Adult Immunizations up to date, Client reports receiving the 2nd dose of the Covid vaccine, Last tetanus immunization: unknown. - Social history:: Smoking status: Patient denies any tobacco usage or history of. ROS: 12:29 Constitutional: Negative for fever, chills, and weight loss, Eyes: Negative for injury, snw pain, redness, and discharge, ENT: Negative for injury, pain, and discharge, Neck: Negative for injury, pain, and swelling, Cardiovascular: Negative for chest pain, palpitations, and edema, Respiratory: Negative for shortness of breath, cough, wheezing, and pleuritic chest pain, Abdomen/GI: Negative for abdominal pain, nausea, vomiting, diarrhea, and constipation, Back: Negative for injury and pain, : Negative for injury, bleeding, discharge, and swelling, MS/Extremity: Negative for injury and deformity, Neuro: Negative for headache, weakness, numbness, tingling, and seizure, Psych: Negative for depression, anxiety, suicide ideation, homicidal ideation, and hallucinations. 12:29 Skin: Positive for rash. Exam: 12:28 Constitutional: This is a well developed, well nourished patient who is awake, alert, snw and in no acute distress. Head/Face: Normocephalic, atraumatic. Eyes: Pupils equal round and reactive to light, extra-ocular motions intact. Lids and lashes normal. Conjunctiva and sclera are non-icteric and not injected. Cornea within normal limits. Periorbital areas with no swelling, redness, or edema. ENT: Nares patent. No nasal discharge, no septal abnormalities noted. Tympanic membranes are normal and external auditory canals are clear. Oropharynx with no redness, swelling, or masses, exudates, or evidence of obstruction, uvula midline. Mucous membranes moist. Neck: Trachea midline, no thyromegaly or masses palpated, and no cervical lymphadenopathy. Supple, full range of motion without nuchal rigidity, or vertebral point tenderness. No Meningismus. Chest/axilla: Normal chest wall appearance and motion. Nontender with no deformity. No lesions are appreciated. Cardiovascular: Regular rate and rhythm with a normal S1 and S2. No gallops, murmurs, or rubs. Normal PMI, no JVD. No pulse deficits. Respiratory: Lungs have equal breath sounds bilaterally, clear to auscultation and percussion. No rales, rhonchi or wheezes noted. No increased work of breathing, no retractions or nasal flaring. Abdomen/GI: Soft, non-tender, with normal bowel sounds. No distension or tympany. No guarding or rebound. No evidence of tenderness throughout. Back: No spinal tenderness. No costovertebral tenderness. Full range of motion. MS/ Extremity: Pulses equal, no cyanosis. Neurovascular intact. Full, normal range of motion. Neuro: Awake and alert, GCS 15, oriented to person, place, time, and situation. Cranial nerves II-XII grossly intact. Motor strength 5/5 in all extremities. Sensory grossly intact. Cerebellar exam normal. Normal gait. Psych: Awake, alert, with orientation to person, place and time. Behavior, mood, and affect are within normal limits. 12:28 Skin: Appearance: Color: normal in color, consistent with drug rash, neck and chest maculopapular rash. Vital Signs: 11:15 BP 126 / 67; Pulse 78; Resp 16; Temp 98.1; Pulse Ox 97% ; Weight 129.73 kg; Height 6 kb3 ft. 2 in. (187.96 cm); Pain 0/10; 11:15 Body Mass Index 36.72 (129.73 kg, 187.96 cm) kb3 MDM: 11:10 Patient medically screened. snw 12:29 Data reviewed: vital signs, nurses notes. Data interpreted: Pulse oximetry: on room air snw is 97 %. Interpretation: normal. Counseling: I had a detailed discussion with the patient and/or guardian regarding: the historical points, exam findings, and any diagnostic results supporting the discharge/admit diagnosis, the need for outpatient follow up, to return to the emergency department if symptoms worsen or persist or if there are any questions or concerns that arise at home. Special discussion: Based on the history and exam findings, there is no indication for further emergent testing or inpatient evaluation. I discussed with the patient/guardian the need to see the primary care provider for further evaluation of the symptoms. Administered Medications: 11:51 Drug: Pepcid (famotidine) 20 mg Route: PO; kb3 11:51 Drug: ZyrTEC - Cetirizine 10 mg Route: PO; 3 11:51 Drug: Decadron (dexamethasone) 10 mg {Note: given oral as ordered.} Route: IM; Site: [facility] Other; Disposition Summary: 07/15/22 12:13 Discharge Ordered Location: Home snw Condition: Stable snw Diagnosis - Rash and other nonspecific skin eruption snw Followup: snw - With: Daniela Dan MD - When: 1 - 2 days - Reason: Recheck today's complaints, Continuance of care, Re-evaluation by your physician Followup: snw - With: Emergency Department - When: As needed - Reason: Worsening of condition Discharge Instructions: - Discharge Summary Sheet snw - Drug Rash snw - Rash, Adult snw Forms: - Medication Reconciliation Form snw - Thank You Letter snw - Antibiotic Education snw - Prescription Opioid Use snw Prescriptions: - Zyrtec 10 mg Oral Tablet - take 1 tablet by ORAL route once daily As needed; 20 tablet; Refills: 0, snw Product Selection Permitted - Pepcid 20 mg Oral Tablet - take 1 tablet by ORAL route once daily; 20 tablet; Refills: 0, Product snw Selection Permitted Signatures: Nuzhat Jolly, MARGARITA BIGHT MAKER-Peterw Cecile Doherty RN RN aa5 Karen Whittington RN RN kb3
--- NOTE | 2022-07-15 12:14 | ER ---
Nurse's Notes [facility] Name: Louis Torres Age: 62 yrs Sex: Male : 1960 Arrival Date: 07/15/2022 Time: 11:06 Bed 13 Private MD: Daniela Dan Diagnosis: Rash and other nonspecific skin eruption Presentation: 07/15 11:15 Chief complaint: Patient states: Pt reports rash to upper chest, spreading down his kb3 abdomen, up his neck, and down his back x2 days. Red, raised maculopapular rash noted. Pt states mild itching. 11:15 Method Of Arrival: Ambulatory kb3 11:15 Coronavirus screen: Vaccine status: Patient reports receiving the 2nd dose of the covid kb3 vaccine. Client denies travel out of the [place] in the last 14 days. Ebola Screen: Patient negative for fever greater than or equal to 101.5 degrees Fahrenheit, and additional compatible Ebola Virus Disease symptoms Patient denies exposure to infectious person. Patient denies travel to an Ebola-affected area in the 21 days before illness onset. No symptoms or risks identified at this time. Initial Sepsis Screen: Does the patient meet any 2 criteria? No. Patient's initial sepsis screen is negative. Does the patient have a suspected source of infection? No. Patient's initial sepsis screen is negative. Risk Assessment: Do you want to hurt yourself or someone else? Patient reports no desire to harm self or others. Onset of symptoms was July 13, 2022. 11:15 Acuity: CONOR 4 kb3 Triage Assessment: 11:26 General: Appears in no apparent distress. comfortable, Behavior is calm, cooperative. kb3 Pain: Denies pain. Historical: - Allergies: 11:08 PENICILLINS; aa5 - PMHx: 11:08 diabetes mellitus; Hypertensive disorder; aa5 - PSHx: 11:08 Appendectomy; aa5 - Immunization history:: Adult Immunizations up to date, Client reports receiving the 2nd dose of the Covid vaccine, Last tetanus immunization: unknown. - Social history:: Smoking status: Patient denies any tobacco usage or history of. Screenin:29 Abuse screen: Denies threats or abuse. Denies injuries from another. Nutritional kb3 screening: No deficits noted. Tuberculosis screening: No symptoms or risk factors identified. Fall Risk None identified. Assessment: 11:29 General: See triage note. Derm: Skin is intact, Skin is dry, Skin is pink, warm \T\ dry. kb3 Skin temperature is warm Rash noted that is macular, papular, red, raised, on posterior cervical area, left trapezius, right trapezius, left scapular area, right scapular area, left subscapular area, right subscapular area, thoracic area, chest and abdomen. Vital Signs: 11:15 BP 126 / 67; Pulse 78; Resp 16; Temp 98.1; Pulse Ox 97% ; Weight 129.73 kg; Height 6 kb3 ft. 2 in. (187.96 cm); Pain 0/10; 11:15 Body Mass Index 36.72 (129.73 kg, 187.96 cm) kb3 ED Course: 11:06 Patient arrived in ED. rg4 11:06 Daniela Dan MD is Private Physician. rg4 11:10 Nuzhat Jolly FNP-C is [facility]. snw 11:10 Heath Castellano MD is Attending Physician. snw 11:12 Karen Whittington, ROGELIO is Primary Nurse. kb3 11:15 Arm band placed on right wrist. Patient Nuzhat LINING BRUSHER at bedside to assess pt. kb3 11:26 Triage completed. kb3 11:29 Bed in low position. Call light in reach. kb3 11:29 No provider procedures requiring assistance completed. kb3 12:13 Daniela Dan MD is Referral Physician. snw Administered Medications: 11:51 Drug: Pepcid (famotidine) 20 mg Route: PO; kb3 11:51 Drug: ZyrTEC - Cetirizine 10 mg Route: PO; kb3 11:51 Drug: Decadron (dexamethasone) 10 mg {Note: given oral as ordered.} Route: IM; Site: [facility] Other; Medication: 11:29 VIS not applicable for this client. kb3 Outcome: 12:13 Discharge ordered by . snw 12:47 Patient left the ED. iw Signatures: Nuzhat Jolly FNP-C FNP-CsnPennie Robledo RN RN iw Calderon, Audri, RN RN aa5 Garcia, Rubi rg4 Karen Whittington RN RN kb3
[2022-07-17 04:25] VITALS: BP 126/67; TEMP 98.1; O2SAT 97
== END 2022-07-15 12:47 | disposition home or self-care (01) ==
LOC: ER 11:04
DX: R21 Rash and other nonspecific skin eruption (principal); I10 Essential (primary) hypertension; Z88.0 Allergy status to penicillin
CPT/HCPCS: 96372; 99282; J1100